=== PATIENT | male | born 1960 | race Caucasian/White ===

== ENCOUNTER 2016-09-09 18:49 | Emergency (ER) | payer OTHER ==
[2016-09-09 19:04] VITALS: RESP 20
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
--- NOTE | 2016-09-09 20:04 | XR ---
EXAMINATION TYPE: XR chest 3V DATE OF EXAM: 09/09/2016 COMPARISON: 11/15/2013 HISTORY: Pain TECHNIQUE: Frontal and lateral views of the chest are obtained. FINDINGS: There is no focal air space opacity, pleural effusion, or pneumothorax seen. The cardiac silhouette size is within normal limits. The osseous structures are intact. IMPRESSION: No acute cardiopulmonary process.
--- NOTE | 2016-09-09 20:06 | XR ---
EXAMINATION TYPE: XR shoulder complete RT DATE OF EXAM: 09/09/2016 CLINICAL HISTORY: Pain TECHNIQUE: Three views of the right shoulder are obtained. COMPARISON: None. FINDINGS: There is no acute fracture/dislocation evident in the right shoulder. The acromioclavicul ar and glenohumeral joint spaces appear within normal limits. The visualized ribs are intact and unr emarkable. IMPRESSION: There is no acute fracture or dislocation in the right shoulder.
[2016-09-09 20:43] VITALS: BP 102/55; PULSE 92; TEMP 98.7
== END 2016-09-09 20:40 | disposition home or self-care (01) ==
LOC: EC 18:49
DX: J98.01 Acute bronchospasm (principal); M25.511 Pain in right shoulder; F17.200 Nicotine dependence, unspecified, uncomplicated
CPT/HCPCS: 71020; 99284

== ENCOUNTER 2016-12-21 19:55 | Emergency (ER) | payer MEDICARE ==
[2016-12-21 20:57] LABS: Basophils # (A) 0.1 k/uL (0-0.2); Basophils % (A) 1 %; CH 32.4; CHCM 33.6; Eosinophils # (A) 0.2 k/uL (0-0.7); Eosinophils % (A) 3 %; HCT 47.6 % (39.0-53.0); HDW 2.32; HGB 15.8 gm/dL (13.0-17.5); Luc # (Auto) 0.17; Luc % (Auto) 3; Lymphocytes % (A) 33 %; MCH 32.3 pg (25.0-35.0); MCHC 33.3 g/dL (31.0-37.0); MCV 96.9 fL (80.0-100.0); Mean Platelet Volume 6.7; Monocytes # (A) 0.4 k/uL (0-1.0); Monocytes % (A) 7 %; Neutrophils # (A) 3.3 k/uL (1.3-7.7); Neutrophils % (A) 54 %; RBC 4.91 m/uL (4.30-5.90); RDW 14.8 % (11.5-15.5); WBC 6.1 k/uL (3.8-10.6)
--- NOTE | 2016-12-21 20:59 | ED ---
Alcohol HPI - General Chief Complaint: Alcohol Stated Complaint: ETOH Time Seen by Provider: 12/21/16 19:58 Source: patient, EMS, RN notes reviewed Mode of arrival: EMS Limitations: no limitations - History of Present Illness Initial Comments: 56-year-old male present emergency department via EMS for alcohol intoxication. Patient was found falling over. Patient states that he was at his home outside drinking. Patient states he does drink on a regular basis. Patient has no complaints. Patient does state he is a little cold. Patient states he did sleep outside pressure. Time. Denies abdominal pain, nausea, vomiting, diarrhea, chest pain, shortness breath, headache, dizziness. - Related Data Home Medications Medication Instructions Recorded Confirmed No Known Home Medications [No 12/21/16 12/21/16 Known Home Medications] Allergies Allergy/AdvReac Type Severity Reaction Status Date / Time No Known Allergies Allergy Verified 12/21/16 20:22 Review of Systems ROS Statement: Those systems with pertinent positive or pertinent negative responses have been documented in the HPI. ROS Other: All systems not noted in ROS Statement are negative. Past Medical History Past Medical History: No Reported History Additional Past Medical History / Comment(s): head injury History of Any Multi-Drug Resistant Organisms: None Reported Past Surgical History: Orthopedic Surgery Past Psychological History: No Psychological Hx Reported Smoking Status: Current every day smoker Past Alcohol Use History: Daily, Heavy Past Drug Use History: Marijuana General Exam General appearance: alert, in no apparent distress Head exam: Present: atraumatic, normocephalic, normal inspection Eye exam: Present: normal appearance, PERRL, EOMI. Absent: scleral icterus, conjunctival injection, periorbital swelling ENT exam: Present: normal exam, normal oropharynx, mucous membranes moist, TM's normal bilaterally Neck exam: Present: normal inspection, full ROM. Absent: tenderness, meningismus, lymphadenopathy Respiratory exam: Present: normal lung sounds bilaterally. Absent: respiratory distress, wheezes, rales, rhonchi, stridor Cardiovascular Exam: Present: regular rate, normal rhythm, normal heart sounds. Absent: systolic murmur, diastolic murmur, rubs, gallop, clicks GI/Abdominal exam: Present: soft, normal bowel sounds. Absent: distended, tenderness, guarding, rebound, rigid Neurological exam: Present: alert, oriented X3, CN II-XII intact, reflexes normal. Absent: motor sensory deficit Skin exam: Present: warm, dry, intact, normal color. Absent: rash Course Vital Signs 12/21/16 12/21/16 12/21/16 20:09 20:25 21:46 Temperature 94.5 F L 96.1 F L 97.0 F L Pulse Rate 82 85 Respiratory 16 18 Rate Blood Pressure 113/81 124/68 O2 Sat by Pulse 96 94 L Oximetry - Reevaluation(s) Reevaluation #1: 12/21/16 20:59 Patient refuses bear hugger patient's temperature rectally is 96.1 Medical Decision Making - Medical Decision Making 56-year-old male present emergency department for alcohol intoxication. Patient 's lab work was reviewed which essentially unremarkable. EKG reviewed no acute changes. Patient was slightly hypothermic at 96.1 rectally patient, as, patient is in no acute distress. Patient is clinically sober and will be discharged. - Lab Data Result diagrams: 12/21/16 20:48 12/21/16 20:48 Lab Results 12/21/16 12/21/16 12/21/16 Range/Units 20:48 20:48 20:48 WBC 6.1 (3.8-10.6) k/uL RBC 4.91 (4.30-5.90) m/uL Hgb 15.8 (13.0-17.5) gm/dL Hct 47.6 (39.0-53.0) % MCV 96.9 (80.0-100.0) fL MCH 32.3 (25.0-35.0) pg MCHC 33.3 (31.0-37.0) g/dL RDW 14.8 (11.5-15.5) % Plt Count 259 (150-450) k/uL Neutrophils % 54 % Lymphocytes % 33 % Monocytes % 7 % Eosinophils % 3 % Basophils % 1 % Neutrophils # 3.3 (1.3-7.7) k/uL Lymphocytes # 2.0 (1.0-4.8) k/uL Monocytes # 0.4 (0-1.0) k/uL Eosinophils # 0.2 (0-0.7) k/uL Basophils # 0.1 (0-0.2) k/uL Sodium 144 (137-145) mmol/L Potassium 4.1 (3.5-5.1) mmol/L Chloride 106 (98-107) mmol/L Carbon Dioxide 29 (22-30) mmol/L Anion Gap 9 mmol/L BUN 5 L (9-20) mg/dL Creatinine 0.59 L (0.66-1.25) mg/dL Est GFR (MDRD) Af Amer >60 (>60 ml/min/1.73 sqM) Est GFR (MDRD) Non-Af >60 (>60 ml/min/1.73 sqM) Glucose 89 (74-99) mg/dL Calcium 9.0 (8.4-10.2) mg/dL Magnesium 2.2 (1.6-2.3) mg/dL Total Bilirubin 0.2 (0.2-1.3) mg/dL AST 50 (17-59) U/L ALT 41 (21-72) U/L Alkaline Phosphatase 79 (38-126) U/L Total Creatine Kinase 562 H (55-170) U/L CK-MB (CK-2) 12.3 H* (0.0-2.4) ng/mL CK-MB (CK-2) Rel Index 2.2 Troponin I (0.000-0.034) ng/mL Total Protein 7.2 (6.3-8.2) g/dL Albumin 3.9 (3.5-5.0) g/dL Amylase 59 (30-110) U/L Lipase 68 (23-300) U/L Urine Color Urine Appearance (Clear) Urine pH (5.0-8.0) Ur Specific [place] (1.001-1.035) Urine Protein (Negative) Urine Glucose (UA) (Negative) Urine Ketones (Negative) Urine Blood (Negative) Urine Nitrite (Negative) Urine Bilirubin (Negative) Urine Urobilinogen (<2.0) mg/dL Ur Leukocyte Esterase (Negative) 12/21/16 12/21/16 Range/Units 20:48 21:28 WBC (3.8-10.6) k/uL RBC (4.30-5.90) m/uL Hgb (13.0-17.5) gm/dL Hct (39.0-53.0) % MCV (80.0-100.0) fL MCH (25.0-35.0) pg MCHC (31.0-37.0) g/dL RDW (11.5-15.5) % Plt Count (150-450) k/uL Neutrophils % % Lymphocytes % % Monocytes % % Eosinophils % % Basophils % % Neutrophils # (1.3-7.7) k/uL Lymphocytes # (1.0-4.8) k/uL Monocytes # (0-1.0) k/uL Eosinophils # (0-0.7) k/uL Basophils # (0-0.2) k/uL Sodium (137-145) mmol/L Potassium (3.5-5.1) mmol/L Chloride (98-107) mmol/L Carbon Dioxide (22-30) mmol/L Anion Gap mmol/L BUN (9-20) mg/dL Creatinine (0.66-1.25) mg/dL Est GFR (MDRD) Af Amer (>60 ml/min/1.73 sqM) Est GFR (MDRD) Non-Af (>60 ml/min/1.73 sqM) Glucose (74-99) mg/dL Calcium (8.4-10.2) mg/dL Magnesium (1.6-2.3) mg/dL Total Bilirubin (0.2-1.3) mg/dL AST (17-59) U/L ALT (21-72) U/L Alkaline Phosphatase (38-126) U/L Total Creatine Kinase (55-170) U/L CK-MB (CK-2) (0.0-2.4) ng/mL CK-MB (CK-2) Rel Index Troponin I <0.012 (0.000-0.034) ng/mL Total Protein (6.3-8.2) g/dL Albumin (3.5-5.0) g/dL Amylase (30-110) U/L Lipase (23-300) U/L Urine Color Colorless Urine Appearance Clear (Clear) Urine pH 7.0 (5.0-8.0) Ur Specific [place] 1.001 (1.001-1.035) Urine Protein Negative (Negative) Urine Glucose (UA) Negative (Negative) Urine Ketones Negative (Negative) Urine Blood Negative (Negative) Urine Nitrite Negative (Negative) Urine Bilirubin Negative (Negative) Urine Urobilinogen <2.0 (<2.0) mg/dL Ur Leukocyte Esterase Negative (Negative) 12/21/16 23:18 EKG performed at 21:35 normal sinus rhythm with rate of 67 NM interval 176 QRS 132 QT/QTC 442/437 Disposition Clinical Impression: Alcoholic intoxication Disposition: HOME SELF-CARE Condition: Stable Instructions: Alcohol Intoxication (ED) Additional Instructions: Please return to the Emergency Department if symptoms worsen or any other concerns. Referrals: None,Stated [Primary Care Provider] - 1-2 days Time of Disposition: 23:18
[2016-12-21 21:07] LABS: ALT 41 U/L (21-72); AST 50 U/L (17-59); Alkaline Phosphatase 79 U/L (38-126); Amylase 59 U/L (30-110); Anion Gap 9 mmol/L; Blood Urea Nitrogen 5 mg/dL (9-20); Carbon Dioxide 29 mmol/L (22-30); Chloride 106 mmol/L (98-107); Glucose 89 mg/dL (74-99); Magnesium 2.2 mg/dL (1.6-2.3); Non-African American GFR(MDRD) >60 (>60 ml/min/1.73 sqM); Potassium 4.1 mmol/L (3.5-5.1); Sodium 144 mmol/L (137-145); Total Bilirubin 0.2 mg/dL (0.2-1.3); Total Protein 7.2 g/dL (6.3-8.2)
[2016-12-21 21:35] LABS: Creatine Kinase MB 12.3 ng/mL (0.0-2.4)
[2016-12-21 21:37] LABS: Appearance,Urine Clear (Clear); Bilirubin,Urine Negative (Negative); Glucose,Urine (UA) Negative (Negative); Ketones,Urine Negative (Negative); Leukocyte Esterase,Urine Negative (Negative); Nitrite,Urine Negative (Negative); Protein,Urine Negative (Negative); Specific Gravity,Urine 1.001 (1.001-1.035); UA Billing (MACRO vs. MICRO) CHEM; Urobilinogen,Urine <2.0 mg/dL (<2.0)
[2016-12-21 21:47] VITALS: RESP 18
[2016-12-22 02:16] VITALS: BP 96/52; PULSE 102
[2016-12-22 02:27] VITALS: TEMP 98.1
== END 2016-12-22 02:25 | disposition home or self-care (01) ==
LOC: EC 19:55
DX: F10.129 Alcohol abuse with intoxication, unspecified (principal); T68.XXXA Hypothermia, initial encounter; F17.200 Nicotine dependence, unspecified, uncomplicated; X31.XXXA Exposure to excessive natural cold, initial encounter
CPT/HCPCS: 36415; 80053; 81003; 82075; 82150; 82550; 82553; 83690; 83735; 84484; 85025; 93005; 99284

== ENCOUNTER → 2017-02-14 | Outpatient (CLI) | payer MEDICARE ==
[2017-02-14 12:25] LABS: Anion Gap 10 mmol/L; Blood Urea Nitrogen 11 mg/dL (9-20); Calcium 9.9 mg/dL (8.4-10.2); Carbon Dioxide 27 mmol/L (22-30); Chloride 98 mmol/L (98-107); Glucose 90 mg/dL (74-99); Non-African American GFR(MDRD) >60 (>60 ml/min/1.73 sqM); Potassium 4.6 mmol/L (3.5-5.1); Sodium 135 mmol/L (137-145)
== END | disposition home or self-care (01) ==
LOC: LABWHC1 11:48
PROVIDERS: ATTEND Surgery
DX: I62.00 Nontraumatic subdural hemorrhage, unspecified (principal)
CPT/HCPCS: 36415; 80048

== ENCOUNTER 2017-10-05 19:11 | Emergency (ER) | payer MEDICARE ==
[2017-10-05 19:16] VITALS: BP 161/91; PULSE 80; RESP 18; TEMP 97
[2017-10-05] MEDS ORDERED: LIDOCAINE 1% INJ 10MG/ML (20 ML MDV) SQ ONE (19:52)
[2017-10-05] MEDS ORDERED: DIPH,PERTUS(ACELL)TETVAC-LF 0.5 ML VIAL IM ONE (19:53)
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
== END 2017-10-05 21:01 | disposition home or self-care (01) ==
LOC: EC 19:11
DX: S51.811A Laceration without foreign body of right forearm, initial encounter (principal); F17.200 Nicotine dependence, unspecified, uncomplicated; Z23 Encounter for immunization; W45.8XXA Other foreign body or object entering through skin, initial encounter; Y93.89 Activity, other specified; Y92.814 Boat as the place of occurrence of the external cause
CPT/HCPCS: 90715; 99282; 12002; 90471; J2001

== ENCOUNTER 2018-07-05 12:03 | Emergency (ER) | payer MEDICARE ==
[2018-07-05] MEDS ORDERED: HYDROcodone/APAP 7.5-325MG 1 EACH TAB PO ONE (12:17)
--- NOTE | 2018-07-05 12:24 | ED ---
Back Pain HPI - General Chief Complaint: Back Pain/Injury Stated Complaint: RT HIP AND LEG PAIN Time Seen by Provider: 07/05/18 12:11 Source: patient Limitations: no limitations - History of Present Illness Initial Comments: 57-year-old male presenting today for chief complaint of pain sharp shooting down the right leg. Patient states that he has on-and-off sciatica, he states this has been persistent for the past 3 weeks he states there are some days with alleviation however they are few and far between. Pt states the pain increases with ambulation. Patient has a muscle weakness loss sensation loss of bowel bladder control in urinary retention he denies IV drug use he denies any recent falls or trauma to the back, he denies history of cancer. Pt denies fever or chills or night sweats. Patient denies any recent weight loss. Pt does admit to chronic alcohol use. Upon arrival pt appears well, ambulatory. No signs of acute distress. Afebrile. - Related Data Home Medications Medication Instructions Recorded Confirmed No Known Home Medications 10/05/17 07/05/18 Allergies Allergy/AdvReac Type Severity Reaction Status Date / Time No Known Allergies Allergy Verified 07/05/18 12:29 Review of Systems ROS Statement: Those systems with pertinent positive or pertinent negative responses have been documented in the HPI. ROS Other: All systems not noted in ROS Statement are negative. Past Medical History Past Medical History: No Reported History Additional Past Medical History / Comment(s): head injury History of Any Multi-Drug Resistant Organisms: None Reported Past Surgical History: Orthopedic Surgery Past Psychological History: No Psychological Hx Reported Smoking Status: Current every day smoker Past Alcohol Use History: Daily, Heavy Past Drug Use History: Marijuana General Exam - General Exam Comments Initial Comments: General: The patient is awake and alert, in no distress, and does not appear acutely ill. Eye: +3 mm pupils are equal, round and reactive to light, extra-ocular movements are intact. No nystagmus. There is normal conjunctiva bilaterally. No signs of icterus. Ears, nose, mouth and throat: There are moist mucous membranes and no oral lesions. Neck: The neck is supple, there is no tenderness or JVD. Cardiovascular: There is a regular rate and rhythm. No murmur, rub or gallop is appreciated. Respiratory: Lungs are clear to auscultation, respirations are non-labored, br eath sounds are equal. No wheezes, stridor, rales, or rhonchi. Gastrointestinal: Soft, non-distended, non-tender abdomen without masses or organomegaly noted. There is no rebound or guarding present. No pulsatile masses. Musculoskeletal: No midline tenderness to patient of the lumbar spine, minimal paravertebral tenderness of the lumbar spine. No tenderness midline or paravertebral thoracic and cervical spine. Patient is able to heel and toe walk. Patient has full strength of the lower extremities at the hips knees and ankles equal comparison bilaterally with full sensation including in the saddle region. No mild clonus or fasciculations noted. DP pulses equal bilaterally 2+. Neurological: A&O x 3. CN II-XII intact, There are no obvious motor or sensory deficits. Coordination appears grossly intact. Speech is normal. Skin: Skin is warm and dry and no rashes or lesions are noted. Psychiatric: Cooperative, appropriate mood & affect, normal judgment. Limitations: no limitations Course Vital Signs 07/05/18 07/05/18 12:08 13:41 Temperature 98.1 F 99 F Pulse Rate 76 71 Respiratory 16 18 Rate Blood Pressure 133/94 118/83 O2 Sat by Pulse 98 99 Oximetry Medical Decision Making - Medical Decision Making Well-appearing 57-year-old male presenting for back pain that radiates down the right leg. Patient has this issue chronically states that occasionally it is exacerbated. Patient states this has been going on 2-3 weeks. Patient denies fall. Patient denies IV drug use fever or chills night sweats he denies history of cancer. Upon arrival patient appears well signs of acute distress. Examination unremarkable. No signs of neurovascular deficits. Imaging studies were obtained revealing no acute osseous injury. Normal alignment. At this time the patient is stable for discharge she was treated symptomatically in the emergency department he is to follow-up with his primary care provider if symptoms persist to follow-up with orthopedic surgery. Patient is agreeable care plan as well as discharge today. Patient is discharged. Will after discussed the case attending provider Dr. Velasquez. Disposition Clinical Impression: Back pain, Radiculopathy, Acute exacerbation of chronic low back pain Disposition: HOME SELF-CARE Condition: Good Instructions (If sedation given, give patient instructions): Acute Low Back Pain (ED) Additional Instructions: Please use medication as discussed. Please follow-up with family doctor in the next 2 days. Please return to emergency room if the symptoms increase or worsen or for any other concerns or if you are unable to urinate, lose bowel or bladder control loss of sensation of the legs or difficulty with muscle strength of the legs. Is patient prescribed a controlled substance at d/c from ED?: No Referrals: None,Stated [Primary Care Provider] - 1-2 days [facility] [NON-STAFF] - 1-2 days Time of Disposition: 13:13
--- NOTE | 2018-07-05 13:06 | XR ---
EXAMINATION TYPE: XR lumbar spine 2 or 3V DATE OF EXAM: 07/05/2018 CLINICAL HISTORY: pain TECHNIQUE: Three views of the lumbar spine are submitted. COMPARISON: 11/15/2013 FINDINGS: There are 5 lumbar type vertebral bodies identified. The lumbar spine shows satisfactory alignment w ithout evidence of acute fracture or dislocation. Vertebral body heights are within normal limits. Moderate to severe degenerative disc space narrowing and spondylosis. Facet joint arthropathy. The o verlying soft tissue appears unremarkable. IMPRESSION: No acute fracture or dislocation is seen in the lumbar spine. ICD 10 NO FRACTURE, INITIAL EVALUATION
[2018-07-05] MEDS ORDERED: ACET/COD 300 MG/30 MG STARTER PACK 6 TAB BTL PO STA (13:14)
[2018-07-05 13:42] VITALS: BP 118/83; PULSE 71; RESP 18; TEMP 99
== END 2018-07-05 13:41 | disposition home or self-care (01) ==
LOC: EC 12:03
DX: M54.16 Radiculopathy, lumbar region (principal); M54.5 Low back pain; G89.29 Other chronic pain; F17.200 Nicotine dependence, unspecified, uncomplicated
CPT/HCPCS: 72100; 99283

== ENCOUNTER → 2018-11-24 | Outpatient (CLI) | payer MEDICARE ==
--- NOTE | 2018-11-24 18:08 | MR ---
EXAMINATION TYPE: MR cervical spine wo con DATE OF EXAM: 11/24/2018 COMPARISON: None HISTORY: Urinary incontinence / muscle spasm TECHNIQUE: Multiplanar, multisequence images of the cervical spine were acquired. Cervical vertebra show fairly normal alignment. There is narrowing of C5-6 C6 C6-7 disc spaces with s purring. There is 6 mm spinal stenosis at C3-4 due to posterior central disc herniation. This extends slightly to the right side. There is mild 6.6 mm spinal stenosis at C6-7 due to mild posterior disc herniation. There is 5 mm focus of increased signal within the cervical spinal cord at C5 level and a lso C6 level. The brainstem is intact. There is no compression fracture. There is anterior bridging o steophyte formation at C4-5 C5-6 and C6-7. IMPRESSION: Multilevel spondylotic changes. Mild multilevel cervical spinal stenosis. Posterior disc herniations at C3-4 and C4-5 and C6-7. No fracture. Focal abnormal signal in the cord as above consistent with myelomalacia. Cord abnormal signal is not at the location of the spinal stenosis and could relate to demyelinating disease.
== END ==
LOC: RADMRIMAIN 12:28
PROVIDERS: ATTEND Neurological Surgery
DX: M48.02 Spinal stenosis, cervical region (principal); M50.21 Other cervical disc displacement, high cervical region; M47.812 Spondylosis without myelopathy or radiculopathy, cervical region; R93.7 Abnormal findings on diagnostic imaging of other parts of musculoskeletal system
CPT/HCPCS: 72141

== ENCOUNTER 2018-12-31 13:36 | Emergency (ER) | payer MEDICARE ==
[2018-12-31 13:42] VITALS: RESP 18; TEMP 97.2
--- NOTE | 2018-12-31 13:49 | ED ---
General Adult HPI - General Chief complaint: Syncope Stated complaint: SYNCOPE Time Seen by Provider: 12/31/18 13:44 Source: patient, EMS Mode of arrival: EMS Limitations: no limitations - History of Present Illness Initial comments: Patient presents to the ED by ambulance for evaluation. Patient states that he became - Related Data Home Medications Medication Instructions Recorded Confirmed Hydrocodone/Acetaminophen [[place] 1 tab PO BID PRN 12/31/18 12/31/18 7.5-325] Naproxen [Naprosyn] 500 mg PO BID PRN 12/31/18 12/31/18 Allergies Allergy/AdvReac Type Severity Reaction Status Date / Time No Known Allergies Allergy Verified 12/31/18 15:01 Review of Systems ROS Statement: Those systems with pertinent positive or pertinent negative responses have been documented in the HPI. ROS Other: All systems not noted in ROS Statement are negative. Past Medical History Past Medical History: No Reported History Additional Past Medical History / Comment(s): head injury History of Any Multi-Drug Resistant Organisms: None Reported Past Surgical History: Orthopedic Surgery Past Psychological History: No Psychological Hx Reported Smoking Status: Current every day smoker Past Alcohol Use History: Daily, Heavy Past Drug Use History: Marijuana General Exam Limitations: no limitations Course Vital Signs 12/31/18 13:36 Temperature 97.2 F L Pulse Rate 61 Respiratory 18 Rate Blood Pressure 100/61 O2 Sat by Pulse 96 Oximetry EKG Findings - EKG Comments: EKG Findings:: Sinus bradycardia with borderline first-degree AV block, ventricular rate of 56 bpm, right bundle branch block (seen on 02/08/17 EKG as well), normal QT interval, no ST or T-wave abnormality Medical Decision Making - Medical Decision Making Patient's labs and chest x-ray are fairly unremarkable. Patient's vital signs are reassuring. Patient continues to deny having any dizziness or symptoms whil e in the ED. I do not suspect a serious etiology for the patient's syncope, and I suspect that it was likely vasovagal in etiology. Patient is aware of his test results, and he feels comfortable going home at this time. Patient was counseled about syncope. Patient was clearly explained return and follow-up instructions. Patient was instructed to follow up closely with his PCP. - Lab Data Result diagrams: 12/31/18 13:42 12/31/18 13:42 Lab Results 11/05/1612/31/18 12/31/18 Range/Units 13:42 13:42 13:42 WBC 8.8 (3.8-10.6) k/uL RBC 4.66 (4.30-5.90) m/uL Hgb 15.5 (13.0-17.5) gm/dL Hct 44.6 (39.0-53.0) % MCV 95.7 (80.0-100.0) fL MCH 33.2 (25.0-35.0) pg MCHC 34.7 (31.0-37.0) g/dL RDW 13.1 (11.5-15.5) % Plt Count 279 (150-450) k/uL Neutrophils % 67 % Lymphocytes % 23 % Monocytes % 5 % Eosinophils % 2 % Basophils % 1 % Neutrophils # 5.9 (1.3-7.7) k/uL Lymphocytes # 2.0 (1.0-4.8) k/uL Monocytes # 0.4 (0-1.0) k/uL Eosinophils # 0.2 (0-0.7) k/uL Basophils # 0.1 (0-0.2) k/uL PT 10.6 (9.0-12.0) sec INR 1.0 (<1.2) APTT 22.5 (22.0-30.0) sec Sodium 133 L (137-145) mmol/L Potassium 4.0 (3.5-5.1) mmol/L Chloride 100 (98-107) mmol/L Carbon Dioxide 22 (22-30) mmol/L Anion Gap 11 mmol/L BUN 13 (9-20) mg/dL Creatinine 0.68 (0.66-1.25) mg/dL Est GFR (CKD-EPI)AfAm >90 (>60 ml/min/1.73 sqM) Est GFR (CKD-EPI)NonAf >90 (>60 ml/min/1.73 sqM) Glucose 84 (74-99) mg/dL Calcium 9.4 (8.4-10.2) mg/dL Magnesium 2.0 (1.6-2.3) mg/dL Total Bilirubin 0.6 (0.2-1.3) mg/dL AST 36 (17-59) U/L ALT 25 (21-72) U/L Alkaline Phosphatase 76 (38-126) U/L Troponin I (0.000-0.034) ng/mL Total Protein 7.3 (6.3-8.2) g/dL Albumin 4.3 (3.5-5.0) g/dL Serum Alcohol 55 mg/dL 12/31/18 Range/Units 13:42 WBC (3.8-10.6) k/uL RBC (4.30-5.90) m/uL Hgb (13.0-17.5) gm/dL Hct (39.0-53.0) % MCV (80.0-100.0) fL MCH (25.0-35.0) pg MCHC (31.0-37.0) g/dL RDW (11.5-15.5) % Plt Count (150-450) k/uL Neutrophils % % Lymphocytes % % Monocytes % % Eosinophils % % Basophils % % Neutrophils # (1.3-7.7) k/uL Lymphocytes # (1.0-4.8) k/uL Monocytes # (0-1.0) k/uL Eosinophils # (0-0.7) k/uL Basophils # (0-0.2) k/uL PT (9.0-12.0) sec INR (<1.2) APTT (22.0-30.0) sec Sodium (137-145) mmol/L Potassium (3.5-5.1) mmol/L Chloride (98-107) mmol/L Carbon Dioxide (22-30) mmol/L Anion Gap mmol/L BUN (9-20) mg/dL Creatinine (0.66-1.25) mg/dL Est GFR (CKD-EPI)AfAm (>60 ml/min/1.73 sqM) Est GFR (CKD-EPI)NonAf (>60 ml/min/1.73 sqM) Glucose (74-99) mg/dL Calcium (8.4-10.2) mg/dL Magnesium (1.6-2.3) mg/dL Total Bilirubin (0.2-1.3) mg/dL AST (17-59) U/L ALT (21-72) U/L Alkaline Phosphatase (38-126) U/L Troponin I 0.022 (0.000-0.034) ng/mL Total Protein (6.3-8.2) g/dL Albumin (3.5-5.0) g/dL Serum Alcohol mg/dL - Radiology Data Radiology results: image reviewed (Chest x-ray is negative) Disposition Clinical Impression: Syncope Disposition: HOME SELF-CARE Condition: Stable Instructions (If sedation given, give patient instructions): Syncope (ED) Additional Instructions: Return to the ER immediately if you develop any significant pain, a fever, shortness of breath, feeling dizzy, fainting, or new or worsening symptoms. Follow up closely with your primary care provider. Is patient prescribed a controlled substance at d/c from ED?: No Referrals: Chava Lentz MD [Primary Care Provider] - 1-2 days Time of Disposition: 15:39
[2018-12-31] MEDS ORDERED: SODIUM CHLORIDE 0.9% 1,000 ML IV STA (13:51)
[2018-12-31 14:04] LABS: Basophils # (A) 0.1 k/uL (0-0.2); Basophils % (A) 1 %; Eosinophils # (A) 0.2 k/uL (0-0.7); Eosinophils % (A) 2 %; HCT 44.6 % (39.0-53.0); HGB 15.5 gm/dL (13.0-17.5); Lymphocytes % (A) 23 %; MCH 33.2 pg (25.0-35.0); MCHC 34.7 g/dL (31.0-37.0); MCV 95.7 fL (80.0-100.0); Mean Platelet Volume 5.8; Monocytes # (A) 0.4 k/uL (0-1.0); Monocytes % (A) 5 %; Neutrophils # (A) 5.9 k/uL (1.3-7.7); Neutrophils % (A) 67 %; Platelet Count 279 k/uL (150-450); RBC 4.66 m/uL (4.30-5.90); RDW 13.1 % (11.5-15.5); WBC 8.8 k/uL (3.8-10.6)
[2018-12-31 14:13] LABS: ALT 25 U/L (21-72); AST 36 U/L (17-59); African American GFR (CKD) >90 (>60 ml/min/1.73 sqM); Albumin 4.3 g/dL (3.5-5.0); Alcohol 55 mg/dL; Alkaline Phosphatase 76 U/L (38-126); Anion Gap 11 mmol/L; Blood Urea Nitrogen 13 mg/dL (9-20); Calcium 9.4 mg/dL (8.4-10.2); Carbon Dioxide 22 mmol/L (22-30); Chloride 100 mmol/L (98-107); Glucose 84 mg/dL (74-99); Partial Thromboplastin Time 22.5 sec (22.0-30.0); Prothrombin Time 10.6 sec (9.0-12.0); Sodium 133 mmol/L (137-145); Total Bilirubin 0.6 mg/dL (0.2-1.3); Total Protein 7.3 g/dL (6.3-8.2)
--- NOTE | 2018-12-31 14:46 | XR ---
EXAMINATION TYPE: XR chest 2V DATE OF EXAM: 12/31/2018 COMPARISON: 02/08/2017 HISTORY: Syncope TECHNIQUE: Frontal and lateral views of the chest are obtained. FINDINGS: Heart is normal. Lungs are clear of infiltrate. There are chest leads. There is old healed fracture left clavicle. Costophrenic angles are clear. Thoracic spine is intact. IMPRESSION: No cardiopulmonary disease. Normal heart. No change.
[2018-12-31 16:19] VITALS: BP 121/77; PULSE 73
== END 2018-12-31 16:18 | disposition home or self-care (01) ==
LOC: EC 13:36
DX: R55 Syncope and collapse (principal); F17.200 Nicotine dependence, unspecified, uncomplicated
CPT/HCPCS: 36415; 93005; 80053; 83735; 84484; 85025; 85610; 85730; 71046; 99285; 96360; G0480; 80320

== ENCOUNTER 2019-01-14 14:59 | Emergency (ER) | payer MEDICARE ==
[2019-01-14 15:07] VITALS: RESP 16; TEMP 98.4
[2019-01-14] MEDS ORDERED: SODIUM CHLORIDE 0.9% 1,000 ML IV STA ×2 (15:27)
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
[2019-01-14 15:51] LABS: Basophils # (A) 0.1 k/uL (0-0.2); Basophils % (A) 1 %; Eosinophils # (A) 0.1 k/uL (0-0.7); Eosinophils % (A) 1 %; HCT 43.7 % (39.0-53.0); Lymphocytes # (A) 1.4 k/uL (1.0-4.8); Lymphocytes % (A) 10 %; MCH 32.1 pg (25.0-35.0); MCHC 34.3 g/dL (31.0-37.0); MCV 93.7 fL (80.0-100.0); Mean Platelet Volume 6.3; Monocytes # (A) 1.2 k/uL (0-1.0); Monocytes % (A) 9 %; Neutrophils # (A) 11.7 k/uL (1.3-7.7); Neutrophils % (A) 80 %; Platelet Count 372 k/uL (150-450); RBC 4.66 m/uL (4.30-5.90); RDW 12.5 % (11.5-15.5); WBC 14.7 k/uL (3.8-10.6)
[2019-01-14 16:01] LABS: ALT 32 U/L (21-72); AST 25 U/L (17-59); African American GFR (CKD) >90 (>60 ml/min/1.73 sqM); Albumin 4.2 g/dL (3.5-5.0); Alkaline Phosphatase 75 U/L (38-126); Amylase 50 U/L (30-110); Anion Gap 12 mmol/L; Blood Urea Nitrogen 16 mg/dL (9-20); Calcium 9.9 mg/dL (8.4-10.2); Carbon Dioxide 22 mmol/L (22-30); Chloride 99 mmol/L (98-107); Glucose 134 mg/dL (74-99); Magnesium 2.1 mg/dL (1.6-2.3); Potassium 3.2 mmol/L (3.5-5.1); Sodium 133 mmol/L (137-145); Total Bilirubin 0.9 mg/dL (0.2-1.3); Total Protein 7.6 g/dL (6.3-8.2)
--- NOTE | 2019-01-14 16:04 | XR ---
EXAMINATION TYPE: XR shoulder complete RT DATE OF EXAM: 01/14/2019 COMPARISON: 09/09/2016 HISTORY: Shoulder pain TECHNIQUE: 3 views FINDINGS: I see no fracture nor dislocation. Joint spaces are fairly normal. There is minor spurring of the inferior glenoid labrum. IMPRESSION: Minimal spurring. No fracture seen. No change.
--- NOTE | 2019-01-14 16:05 | XR ---
EXAMINATION TYPE: XR chest 2V DATE OF EXAM: 01/14/2019 COMPARISON: 12/31/2018 HISTORY: Chest pain. Right shoulder pain. TECHNIQUE: Frontal and lateral views of the chest are obtained. FINDINGS: There is no heart failure nor confluent pneumonic infiltrate. Costophrenic angles are sade r. Heart size is normal. There is old left clavicle fracture with a plate. The bony thorax is intact. IMPRESSION: No active cardiopulmonary disease. No change.
[2019-01-14 16:08] LABS: Partial Thromboplastin Time 28.2 sec (22.0-30.0); Prothrombin Time 10.7 sec (9.0-12.0)
[2019-01-14 17:38] VITALS: BP 129/88; PULSE 89
== END 2019-01-14 17:38 | disposition home or self-care (01) ==
LOC: EC 14:59
DX: M25.511 Pain in right shoulder (principal); M25.512 Pain in left shoulder; M54.9 Dorsalgia, unspecified; F17.200 Nicotine dependence, unspecified, uncomplicated; Z98.890 Other specified postprocedural states
CPT/HCPCS: 36415; 71046; 80053; 82150; 83690; 83735; 83880; 84484; 85025; 85610; 85730; 87040; 87077; 87186; 93005; 96360; 99284

== ENCOUNTER 2019-01-15 13:50 | Emergency (ER) | payer MEDICARE ==
[2019-01-15 14:02] VITALS: TEMP 97.2
[2019-01-15 14:35] LABS: Glucose,Whole Blood 106 mg/dL (75-99)
--- NOTE | 2019-01-15 14:58 | ED ---
General Adult HPI - General Chief complaint: Recheck/Abnormal Lab/Rx Stated complaint: Abnormal Labs Time Seen by Provider: 01/15/19 14:30 Source: patient, RN notes reviewed, Caregiver Mode of arrival: ambulatory Limitations: no limitations - History of Present Illness Initial comments: Patient is a pleasant 58-year-old male presenting to the emergency Department with complaints of abnormal blood work. Patient did have spinal fusion done in [place] with Dr. ritter on January 03. Patient has occasional chronic shoulder discomfort. Patient did have some discomfort yesterday was brought to the emergency department. Patient still complains of some shoulder discomfort however states this is no worse than chronic for him. Patient had blood culture done with pulmonary results showing gram-positive cocci. Patient was told by Dr. ritter following surgery that there was concern for a spinal leak. He did advise him to come back to the emergency department for reevaluation. Patient complains of discomfort of the neck, more anteriorly than posteriorly. No fevers. Patient is having yellow drainage from the anterior neck. Patient did have some additional sutures placed by Dr. hernandez a few days ago. - Related Data Home Medications Medication Instructions Recorded Confirmed Hydrocodone/Acetaminophen [[place] 1 tab PO BID PRN 12/31/18 12/31/18 7.5-325] Naproxen [Naprosyn] 500 mg PO BID PRN 12/31/18 12/31/18 Previous Rx's Medication Instructions Recorded Ciprofloxacin HCl [Cipro] 500 mg PO BID 7 Days #14 tab 01/15/19 Allergies Allergy/AdvReac Type Severity Reaction Status Date / Time No Known Allergies Allergy Verified 01/14/19 15:07 Review of Systems ROS Statement: Those systems with pertinent positive or pertinent negative responses have been documented in the HPI. ROS Other: All systems not noted in ROS Statement are negative. Constitutional: Denies: fever Eyes: Denies: eye pain ENT: Denies: ear pain Respiratory: Denies: dyspnea Cardiovascular: Denies: chest pain Endocrine: Reports: fatigue Gastrointestinal: Denies: abdominal pain Genitourinary: Denies: dysuria Musculoskeletal: Denies: back pain Skin: Reports: rash Neurological: Denies: weakness Past Medical History Past Medical History: No Reported History Additional Past Medical History / Comment(s): head injury History of Any Multi-Drug Resistant Organisms: None Reported Past Surgical History: Orthopedic Surgery Additional Past Surgical History / Comment(s): cervical spinal fusion Past Psychological History: No Psychological Hx Reported Smoking Status: Former smoker Past Alcohol Use History: None Reported Past Drug Use History: None Reported General Exam Limitations: no limitations General appearance: alert, in no apparent distress Head exam: Present: atraumatic, normocephalic Eye exam: Present: normal appearance, PERRL ENT exam: Present: normal oropharynx Neck exam: Present: other (Anterior neck with erythema. There is mild thin yellow drainage from the anterior neck wound. Minimal tenderness to palpation. No posterior tenderness.). Absent: meningismus Respiratory exam: Present: normal lung sounds bilaterally Cardiovascular Exam: Present: regular rate, normal rhythm GI/Abdominal exam: Present: soft. Absent: tenderness Extremities exam: Present: normal inspection Neurological exam: Present: alert. Absent: motor sensory deficit Psychiatric exam: Present: normal affect, normal mood Skin exam: Present: erythema (Anterior neck near the incision) Course Vital Signs 01/15/19 01/15/19 13:52 15:28 Temperature 97.2 F L Pulse Rate 86 72 Respiratory 18 18 Rate Blood Pressure 88/63 98/63 O2 Sat by Pulse 97 98 Oximetry EKG Findings - EKG Comments: EKG Findings:: Normal sinus rhythm 73. OK 160. QRS 1:30. QTC 416. QTC 458. Normal axis. Nonspecific intraventricular block. Q wave in lead V1 and V2. No acute ST change. Medical Decision Making - Medical Decision Making Patient reevaluated and resting comfortably in bed. Patient has symptoms concerning for possible early wound infection. There is no evidence of menin gitis on assessment at this point. Case was discussed in detail twice with Dr. ritter who is very familiar with this patient. He does recommend discharge with Cipro for 7 days and will follow-up tomorrow with patient. He will call. Patient's morphologist body tonight. Patient and morphologist are updated. - Lab Data Result diagrams: 01/15/19 14:39 01/15/19 14:39 Lab Results 01/15/19 01/15/19 01/15/19 Range/Units 14:32 14:39 14:39 WBC 12.4 H (3.8-10.6) k/uL RBC 4.28 L (4.30-5.90) m/uL Hgb 13.8 (13.0-17.5) gm/dL Hct 39.9 (39.0-53.0) % MCV 93.4 (80.0-100.0) fL MCH 32.4 (25.0-35.0) pg MCHC 34.7 (31.0-37.0) g/dL RDW 12.7 (11.5-15.5) % Plt Count 421 (150-450) k/uL Neutrophils % 73 % Lymphocytes % 15 % Monocytes % 9 % Eosinophils % 1 % Basophils % 1 % Neutrophils # 9.1 H (1.3-7.7) k/uL Lymphocytes # 1.9 (1.0-4.8) k/uL Monocytes # 1.2 H (0-1.0) k/uL Eosinophils # 0.1 (0-0.7) k/uL Basophils # 0.1 (0-0.2) k/uL PT (9.0-12.0) sec INR (<1.2) APTT (22.0-30.0) sec Sodium 135 L (137-145) mmol/L Potassium 3.5 (3.5-5.1) mmol/L Chloride 102 (98-107) mmol/L Carbon Dioxide 24 (22-30) mmol/L Anion Gap 9 mmol/L BUN 16 (9-20) mg/dL Creatinine 0.72 (0.66-1.25) mg/dL Est GFR (CKD-EPI)AfAm >90 (>60 ml/min/1.73 sqM) Est GFR (CKD-EPI)NonAf >90 (>60 ml/min/1.73 sqM) Glucose 108 H (74-99) mg/dL POC Glucose (mg/dL) 106 H (75-99) mg/dL POC Glu Beaver Trapper Maxine Ba Plasma Lactic Acid Huey (0.7-2.0) mmol/L Calcium 9.4 (8.4-10.2) mg/dL Total Bilirubin 0.6 (0.2-1.3) mg/dL AST 43 (17-59) U/L ALT 32 (21-72) U/L Alkaline Phosphatase 85 (38-126) U/L Total Protein 7.4 (6.3-8.2) g/dL Albumin 4.0 (3.5-5.0) g/dL 01/15/19 01/15/19 Range/Units 14:39 14:39 WBC (3.8-10.6) k/uL RBC (4.30-5.90) m/uL Hgb (13.0-17.5) gm/dL Hct (39.0-53.0) % MCV (80.0-100.0) fL MCH (25.0-35.0) pg MCHC (31.0-37.0) g/dL RDW (11.5-15.5) % Plt Count (150-450) k/uL Neutrophils % % Lymphocytes % % Monocytes % % Eosinophils % % Basophils % % Neutrophils # (1.3-7.7) k/uL Lymphocytes # (1.0-4.8) k/uL Monocytes # (0-1.0) k/uL Eosinophils # (0-0.7) k/uL Basophils # (0-0.2) k/uL PT 10.2 (9.0-12.0) sec INR 0.9 (<1.2) APTT 26.3 (22.0-30.0) sec Sodium (137-145) mmol/L Potassium (3.5-5.1) mmol/L Chloride (98-107) mmol/L Carbon Dioxide (22-30) mmol/L Anion Gap mmol/L BUN (9-20) mg/dL Creatinine (0.66-1.25) mg/dL Est GFR (CKD-EPI)AfAm (>60 ml/min/1.73 sqM) Est GFR (CKD-EPI)NonAf (>60 ml/min/1.73 sqM) Glucose (74-99) mg/dL POC Glucose (mg/dL) (75-99) mg/dL POC Glu Beaver Trapper ID Plasma Lactic Acid Huey 1.6 (0.7-2.0) mmol/L Calcium (8.4-10.2) mg/dL Total Bilirubin (0.2-1.3) mg/dL AST (17-59) U/L ALT (21-72) U/L Alkaline Phosphatase (38-126) U/L Total Protein (6.3-8.2) g/dL Albumin (3.5-5.0) g/dL - Radiology Data Radiology results: image reviewed (Chest x-ray reveals no acute process) Disposition Clinical Impression: Incisional infection Disposition: HOME SELF-CARE Condition: Stable Instructions (If sedation given, give patient instructions): Cellulitis (ED) Additional Instructions: Please follow-up with Dr. Ritter tomorrow. He will call you tonight or tomorrow. If you do not hear from them by late morning please call. Return for fevers, increased redness, increased pain, increased drainage, worsening symptoms or any other concerns. Please also follow-up with primary care physician. Please have both of them evaluate culture results. Prescription sent to [facility] on . Prescriptions: Ciprofloxacin HCl [Cipro] 500 mg PO BID 7 Days #14 tab Is patient prescribed a controlled substance at d/c from ED?: No Referrals: Chava Lentz MD [Primary Care Provider] - 1-2 days Time of Disposition: 17:03
[2019-01-15] MEDS ORDERED: SODIUM CHLORIDE 0.9% 1,000 ML IV SCH (15:00)
[2019-01-15 15:48] LABS: ALT 32 U/L (21-72); AST 43 U/L (17-59); African American GFR (CKD) >90 (>60 ml/min/1.73 sqM); Alkaline Phosphatase 85 U/L (38-126); Anion Gap 9 mmol/L; Blood Urea Nitrogen 16 mg/dL (9-20); Calcium 9.4 mg/dL (8.4-10.2); Carbon Dioxide 24 mmol/L (22-30); Chloride 102 mmol/L (98-107); Glucose 108 mg/dL (74-99); Non-African American GFR(CKD) >90 (>60 ml/min/1.73 sqM); Potassium 3.5 mmol/L (3.5-5.1); Sodium 135 mmol/L (137-145); Total Bilirubin 0.6 mg/dL (0.2-1.3); Total Protein 7.4 g/dL (6.3-8.2)
--- NOTE | 2019-01-15 15:50 | XR ---
EXAMINATION TYPE: XR chest 2V DATE OF EXAM: 01/15/2019 COMPARISON: Prior chest x-ray 01/14/2019, CT 2013 HISTORY: Fever and right shoulder pain TECHNIQUE: Frontal and lateral views of the chest are obtained on 3 images. FINDINGS: Postop changes are noted to the cervical spine, messi are present as well as anterior ce rvical fusion and discectomy change. Postop changes noted to the left clavicle as on prior. There are overlying cardiac leads. Prominent lung volumes are noted. Cardiac mediastinal silhouette, pulmonary vascularity and juan daniel are unchanged. No evident airspace disease, pneumothorax, or pleural effusion. There is apical bullous change at the right apex greater than left. IMPRESSION: No acute cardiopulmonary process.
[2019-01-15 15:59] LABS: INR 0.9 (<1.2); Partial Thromboplastin Time 26.3 sec (22.0-30.0); Prothrombin Time 10.2 sec (9.0-12.0)
[2019-01-15 16:12] LABS: Basophils # (A) 0.1 k/uL (0-0.2); Basophils % (A) 1 %; Eosinophils # (A) 0.1 k/uL (0-0.7); Eosinophils % (A) 1 %; HCT 39.9 % (39.0-53.0); HGB 13.8 gm/dL (13.0-17.5); Lymphocytes # (A) 1.9 k/uL (1.0-4.8); Lymphocytes % (A) 15 %; MCH 32.4 pg (25.0-35.0); MCHC 34.7 g/dL (31.0-37.0); MCV 93.4 fL (80.0-100.0); Mean Platelet Volume 6.8; Monocytes # (A) 1.2 k/uL (0-1.0); Monocytes % (A) 9 %; Neutrophils # (A) 9.1 k/uL (1.3-7.7); Neutrophils % (A) 73 %; Platelet Count 421 k/uL (150-450); RBC 4.28 m/uL (4.30-5.90); RDW 12.7 % (11.5-15.5); WBC 12.4 k/uL (3.8-10.6)
[2019-01-15] MEDS ORDERED: LEVOFLOXACIN 750 MG TAB PO STA (16:48)
[2019-01-15 17:39] VITALS: BP 104/71; PULSE 73; RESP 16
== END 2019-01-15 17:41 | disposition home or self-care (01) ==
LOC: EC 13:50
DX: T81.49XA Infection following a procedure, other surgical site, initial encounter (principal); G04.91 Myelitis, unspecified; Z98.1 Arthrodesis status; Z87.891 Personal history of nicotine dependence
CPT/HCPCS: 36415; 71046; 80053; 83605; 85025; 85610; 85730; 87040; 87070; 87077; 87186; 87205; 93005; 96360; 96361; 99284

== ENCOUNTER → 2019-03-08 | Outpatient (CLI) | payer MEDICARE ==
--- NOTE | 2019-03-08 10:10 | P.PN ---
Progress Note - Text Progress Note Date: 03/08/19 5 meter walk test completed: #1 5.10 sec #2 4.66 sec #3 5.04 sec Once all preoperative testing has been completed, STS risk score will be calculated and discussed with the patient
[2019-03-08 11:00] LABS: Appearance,Urine Clear (Clear); Bilirubin,Urine Negative (Negative); Blood,Urine Negative (Negative); Color,Urine Yellow; Glucose,Urine (UA) Negative (Negative); Ketones,Urine Negative (Negative); Leukocyte Esterase,Urine Negative (Negative); Nitrite,Urine Negative (Negative); Protein,Urine Trace (Negative); Specific Gravity,Urine 1.019 (1.001-1.035)
[2019-03-08 11:09] LABS: HCT 41.3 % (39.0-53.0); HGB 13.5 gm/dL (13.0-17.5); MCH 30.5 pg (25.0-35.0); MCHC 32.7 g/dL (31.0-37.0); MCV 93.3 fL (80.0-100.0); Mean Platelet Volume 6.8; Platelet Count 339 k/uL (150-450); RBC 4.43 m/uL (4.30-5.90); RDW 13.1 % (11.5-15.5); WBC 8.4 k/uL (3.8-10.6)
[2019-03-08 11:21] LABS: INR 0.9 (<1.2); Partial Thromboplastin Time 26.3 sec (22.0-30.0); Prothrombin Time 10.2 sec (9.0-12.0)
[2019-03-08 11:37] LABS: ALT 16 U/L (4-49); AST 26 U/L (17-59); African American GFR (CKD) >90 (>60 ml/min/1.73 sqM); Albumin 3.9 g/dL (3.5-5.0); Alkaline Phosphatase 92 U/L (38-126); Anion Gap 6 mmol/L; Blood Urea Nitrogen 8 mg/dL (9-20); Calcium 9.5 mg/dL (8.4-10.2); Carbon Dioxide 32 mmol/L (22-30); Chloride 102 mmol/L (98-107); Cholesterol 162 mg/dL (<200); Glucose 93 mg/dL (74-99); HDL Cholesterol 45 mg/dL (40-60); LDL Cholesterol,Calculated 100 mg/dL (0-99); Non-African American GFR(CKD) >90 (>60 ml/min/1.73 sqM); Potassium 4.4 mmol/L (3.5-5.1); Sodium 140 mmol/L (137-145); Total Bilirubin 0.4 mg/dL (0.2-1.3); Total Protein 7.2 g/dL (6.3-8.2); Triglycerides 83 mg/dL (<150)
--- NOTE | 2019-03-08 12:59 | XR ---
EXAMINATION TYPE: XR chest 2V DATE OF EXAM: 03/08/2019 COMPARISON: Chest x-ray January 15, 2019. HISTORY: Fever. TECHNIQUE: Frontal and lateral views of the chest are obtained. FINDINGS: There is moderate right apical pleural/parenchymal scarring redemonstrated. Background study lead kye emphysematous change. There is no no suspicious focal air space opacity, pleural effusion, or pne umothorax seen. The cardiac silhouette size remains within normal limits. Partial visualization of s urgical change lower cervical spine. Stable hardware through healed fracture left clavicle. Subacute fractures anterolateral left seventh through ninth ribs redemonstrated. IMPRESSION: Chronic changes without new suspicious acute infiltrate..
[2019-03-08 18:08] LABS: Hepatitis A Antibody IgM Non-Reactive (Non-Reactive); Hepatitis B Core IgM Non-Reactive (Non-Reactive); Hepatitis B Surface Antigen Non-Reactive (Non-Reactive); Hepatitis C IgG Antibody Non-Reactive (Non-Reactive)
[2019-03-08 19:01] LABS: Hemoglobin A1C 6.1 % (4.0-6.0)
--- NOTE | 2019-03-14 12:27 | P.ARTDOP ---
Arterial Doppler LOWER EXTREMITY ARTERIAL DOPPLER: DATE OF SERVICE: 03/08/2019 Reason for study: Preop CABG. Doppler waveforms: Multiphasic bilaterally throughout. Pulse volume recording: []. Pressure gradients: None. Ankle-brachial indices: Greater than 1 bilaterally. Toe pressures: [] on the right, [] on the left Impression: Normal study.
--- NOTE | 2019-03-14 12:29 | P.VSCSTY ---
Greater Saphenous Vein Mapping This is bilateral lower extremity greater saphenous vein mapping. Date of service: 03/08/2019 Vein quality and ultrasound appearance: No sign of intraluminal thrombus or wall changes. Vein size groin right : 6.1 x 6.9 groin left: 4.7 x 6.3 High thigh right: 3.2 x 4.4 high thigh left: 2.7 x 3.8 Mid thigh right: 2.8 x 3.3 mid thigh left: 2.6 x 4.1 Above-knee right: 2.6 x 3.6 above-knee left: 2.8 x 3.4 Below knee right: 2.3 x 2.9 below-knee left: 2.2 x 3.2 Mid calf right: 2.3 x 3.3 mid calf left: 1.2 x 1.4 Ankle right: 2.6 x 3.4 ankle left: 1.4 x 2.1 Impression: Usable bilateral greater saphenous vein. Small at the left mid calf and below..
--- NOTE | 2019-03-14 12:31 | P.ARTDOP ---
Arterial Doppler Bilateral radial artery study: Date of study: 03/08/2019 Reason for study: Preop CABG Findings: Doppler assessment shows no significant right to left or segmental pressure gradients Digital plethysmography with radial artery compression shows no significant pressure change Imaging shows the right to be 3.8 x 3.5 proximal 2.8 x 3.3 mid and 2.8 x 3.6 distal, the left is 4 x 4 proximal 3.1 x 3.9 mid and 3.1 x 4.0 distal Impression: Usable bilateral radial arteries by criteria
== END | disposition home or self-care (01) ==
LOC: LABPAT 08:15
PROVIDERS: ATTEND Thoracic Surgery (Cardiothoracic Vascular Surgery)
DX: J43.9 Emphysema, unspecified (principal); I25.10 Atherosclerotic heart disease of native coronary artery without angina pectoris; Z79.01 Long term (current) use of anticoagulants; Z79.899 Other long term (current) drug therapy
CPT/HCPCS: 36415; 71046; 80053; 80061; 80074; 81003; 83036; 83735; 84443; 85027; 85610; 85730; 87070; 87086; 93005; 93922; 93923; 93930; 93970; 94150

== ENCOUNTER 2019-03-14 05:42 | Inpatient (IN) | payer MEDICARE ==
[~2019-03-14 05:42] MED LIST: ALBUMIN HUMAN 25% 50 ML IV ONE; ASPIRIN 325 MG TAB PO ONE; ATORVASTATIN 10 MG TAB PO ONE; CALCIUM CHLORIDE 100 MG/ML 10 ML SYRINGE IV ONE; CARDIOPLEGIC SOLN (K+ 16 MEQ/L 1,000 ML with SODIUM BICARB (1 MEQ/ML) 20 ML, LIDOCAINE ... PERFUSION ONE; CHLORHEXIDINE GLUCONATE 15 ML CUP MUCOUS MEM ONE; CLEVIDIPINE BUTYRATE 25 MG in EMPTY BAG 1 BAG IV ONE; DILTIAZEM 125 MG in SODIUM CHLORIDE 0.9% 100 ML IV ONE; HEPARIN SODIUM 1,000 UN/ML (10ML VL) IV ONE; HEPARIN SODIUM,PORCINE 5,000 UNIT in SODIUM CHLORIDE 0.9% 500 ML 500 ML IV ONE; INSULIN REGULAR 100 UNIT in SODIUM CHLORIDE 0.9% 100 ML IV ONE; LACTATED RINGERS 1,000 ML IV ONE; MAGNESIUM SULFATE MG 500 MG/ML IV ONE; MANNITOL 25% 12.5 GM/50 ML VIAL IV ONE; METOPROLOL TARTRATE 12.5 MG TAB PO ONE; NITROGLYCERIN-D5W PMX 25 MG/250 ML BTL IV ONE; NITROGLYCERIN-D5W PMX 50 MG in DEXTROSE/WATER 1 250ML.BAG IV ONE; NOREPINEPHRINE 4 MG in SODIUM CHLORIDE 0.9% 250 ML IV ONE; PAPAVERINE 360 MG in SODIUM CHLORIDE 0.9% 90 ML IV ONE; PHENYLEPHRINE 40 MG in SODIUM CHLORIDE 0.9% 250 ML IV ONE; PROPOFOL 1,000 MG/100 ML VIAL IV ONE; PROTAMINE SULFATE 10 MG/ML 25 ML VIAL IV ONE; PROTAMINE SULFATE 250 MG in EMPTY BAG 1 BAG IV ONE; SODIUM BICARB 8.4% 50 ML SYR (1 MEQ/ML) IV ONE; SODIUM CHLORIDE 0.9% 1,000 ML IV ONE; TRANEXAMIC ACID 2,000 MG in SODIUM CHLORIDE 0.9% 80 ML IV ONE; ceFAZolin 1,000 MG in SODIUM CHLORIDE 0.9% IRRIGATIO 1,000 ML IRRIGATION ONE; ceFAZolin 2,000 MG in SODIUM CHLORIDE 0.9% 30 ML IVPB ONE
[2019-03-14] MEDS ORDERED: ALBUMIN HUMAN 5% (12.5gm) 250 ML BOTTLE IVPB ONE (07:51)
[2019-03-14] MEDS ORDERED: ceFAZolin 1,000 MG VIAL ONE (07:51)
[2019-03-14] MEDS ORDERED: ePHEDrine SULFATE/0.9% NACL/PF 50 MG/5 ML SYRINGE IV ONE (07:51)
[2019-03-14] MEDS ORDERED: ALBUMIN HUMAN 5% (25gm) 500 ML VIAL IVPB ONE (07:51)
[2019-03-14] MEDS ORDERED: fentaNYL (PF) 50 MCG/ML 2 ML AMP ONE (07:51)
[2019-03-14] MEDS ORDERED: PHENYLEPHRINE-0.9% NACL SYG 1 MG/10 ML SYRINGE ONE (07:51)
[2019-03-14] MEDS ORDERED: VECURONIUM 10 MG VIAL IV ONE (07:51)
[2019-03-14] MEDS ORDERED: PROPOFOL 10 MG/ML 20 ML VIAL IV ONE (07:51)
[2019-03-14] MEDS ORDERED: MIDAZOLAM 2 MG/2 ML VIAL ONE (07:51)
[2019-03-14] MEDS ORDERED: fentaNYL (PF) 50 MCG/ML 50 ML VIAL ONE (07:51)
[2019-03-14] MEDS ORDERED: SODIUM CHLORIDE 0.9% IRRIG 1,000 ML BTL IRRIGATION ONE (07:51)
[2019-03-14] MEDS ORDERED: ALBUTEROL INHALER 60 PUFF/8 GM INHALER INHALATION ONE (07:51)
[2019-03-14] MEDS ORDERED: PROTAMINE SULFATE 10 MG/ML 5 ML VIAL IV ONE (07:51)
[2019-03-14] MEDS ORDERED: HEPARIN SODIUM,PORCINE 10,000 UNIT/ML 1 ML VIAL ONE (07:51)
[2019-03-14] MEDS ORDERED: NITROGLYCERIN-D5W PMX 50 MG/250 ML BOTTLE IV ONE (07:51)
[2019-03-14] MEDS ORDERED: SUCCINYLCHOLINE CHLORIDE 100 MG/5 ML SYR IV ONE (07:51)
[2019-03-14] MEDS ORDERED: DILTIAZEM 125 MG in SODIUM CHLORIDE 0.9% 100 ML IV SCH ×2 (09:00→13:48)
[2019-03-14 09:11] LABS: ABG Base Excess 1.9 mmol/L; ABG Glucose Whole Blood 110 mg/dL (75-99); ABG HCO3 27 mmol/L (21-25); ABG Hematocrit 35 % (34.0-46.0); ABG Ionized Calcium 4.8 mg/dL (4.5-5.3); ABG Oxygen Saturation 99.9 % (94-97); ABG PCO2 46 mmHg (35-45); ABG PH 7.39 (7.35-7.45); ABG PO2 223 mmHg (83-108); ABG Potassium Whole Blood 3.9 mmol/L (3.4-4.5); ABG Sodium Whole Blood 141 mmol/L (135-146); ABG TCO2 29 mmol/L (19-24)
[2019-03-14] MEDS ORDERED: ALBUTEROL NEBULIZED 2.5 MG/3 ML INHALATION STA (09:52)
[2019-03-14] MEDS ORDERED: SODIUM CHLORIDE 0.9% 500 ML 500 ML with HEPARIN SODIUM,PORCINE 5,000 UNIT IV ONE ×2 (10:20)
[2019-03-14] MEDS ORDERED: PAPAVERINE 360 MG in SODIUM CHLORIDE 0.9% 90 ML IV ONE (10:20)
[2019-03-14] MEDS ORDERED: ceFAZolin 1,000 MG in SODIUM CHLORIDE 0.9% 1,000 ML IRRIGATION ONE (10:20)
[2019-03-14 10:32] LABS: ABG Base Excess -0.7 mmol/L; ABG Glucose Whole Blood 151 mg/dL (75-99); ABG HCO3 27 mmol/L (21-25); ABG Hematocrit 33 % (34.0-46.0); ABG Ionized Calcium 4.9 mg/dL (4.5-5.3); ABG Lactic Acid Whole Blood 0.6 mmol/L (0.5-1.6); ABG PCO2 59 mmHg (35-45); ABG PH 7.27 (7.35-7.45); ABG PO2 307 mmHg (83-108); ABG Potassium Whole Blood 3.7 mmol/L (3.4-4.5); ABG Sodium Whole Blood 142 mmol/L (135-146); ABG TCO2 29 mmol/L (19-24)
[2019-03-14 11:06] LABS: ABG Base Excess 0.5 mmol/L; ABG Glucose Whole Blood 142 mg/dL (75-99); ABG HCO3 26 mmol/L (21-25); ABG Hematocrit 31 % (34.0-46.0); ABG Ionized Calcium 4.8 mg/dL (4.5-5.3); ABG Lactic Acid Whole Blood 0.9 mmol/L (0.5-1.6); ABG Oxygen Saturation 99.9 % (94-97); ABG PCO2 48 mmHg (35-45); ABG PH 7.35 (7.35-7.45); ABG PO2 293 mmHg (83-108); ABG Potassium Whole Blood 3.5 mmol/L (3.4-4.5); ABG Sodium Whole Blood 142 mmol/L (135-146); ABG TCO2 28 mmol/L (19-24)
[2019-03-14 11:32] LABS: ABG Base Excess 0.1 mmol/L; ABG Glucose Whole Blood 133 mg/dL (75-99); ABG HCO3 26 mmol/L (21-25); ABG Hematocrit 30 % (34.0-46.0); ABG Ionized Calcium 4.7 mg/dL (4.5-5.3); ABG Lactic Acid Whole Blood 1.4 mmol/L (0.5-1.6); ABG Oxygen Saturation 99.8 % (94-97); ABG PCO2 46 mmHg (35-45); ABG PH 7.36 (7.35-7.45); ABG PO2 274 mmHg (83-108); ABG Potassium Whole Blood 3.5 mmol/L (3.4-4.5); ABG Sodium Whole Blood 142 mmol/L (135-146); ABG TCO2 27 mmol/L (19-24)
[2019-03-14 11:54] LABS: ABG Base Excess -0.4 mmol/L; ABG Glucose Whole Blood 130 mg/dL (75-99); ABG HCO3 26 mmol/L (21-25); ABG Hematocrit 30 % (34.0-46.0); ABG Ionized Calcium 4.7 mg/dL (4.5-5.3); ABG Lactic Acid Whole Blood 1.2 mmol/L (0.5-1.6); ABG Oxygen Saturation 99.8 % (94-97); ABG PCO2 49 mmHg (35-45); ABG PH 7.33 (7.35-7.45); ABG PO2 234 mmHg (83-108); ABG Potassium Whole Blood 3.6 mmol/L (3.4-4.5); ABG Sodium Whole Blood 142 mmol/L (135-146); ABG TCO2 27 mmol/L (19-24)
[2019-03-14 12:24] LABS: ABG Base Excess -1.7 mmol/L; ABG Glucose Whole Blood 124 mg/dL (75-99); ABG HCO3 25 mmol/L (21-25); ABG Hematocrit 29 % (34.0-46.0); ABG Ionized Calcium 4.6 mg/dL (4.5-5.3); ABG Lactic Acid Whole Blood 1.2 mmol/L (0.5-1.6); ABG Oxygen Saturation 99.8 % (94-97); ABG PCO2 50 mmHg (35-45); ABG PO2 291 mmHg (83-108); ABG Potassium Whole Blood 3.5 mmol/L (3.4-4.5); ABG Sodium Whole Blood 142 mmol/L (135-146); ABG TCO2 26 mmol/L (19-24)
[2019-03-14 13:42] LABS: ABG Base Excess -2.1 mmol/L; ABG Glucose Whole Blood 115 mg/dL (75-99); ABG HCO3 24 mmol/L (21-25); ABG Hematocrit 27 % (34.0-46.0); ABG Ionized Calcium 4.6 mg/dL (4.5-5.3); ABG Lactic Acid Whole Blood 1.2 mmol/L (0.5-1.6); ABG Oxygen Saturation 99.4 % (94-97); ABG PCO2 47 mmHg (35-45); ABG PH 7.32 (7.35-7.45); ABG PO2 190 mmHg (83-108); ABG Potassium Whole Blood 3.4 mmol/L (3.4-4.5); ABG Sodium Whole Blood 142 mmol/L (135-146); ABG TCO2 26 mmol/L (19-24)
[2019-03-14] MEDS ORDERED: PROPOFOL 1,000 MG in EMPTY BAG 1 BAG IV SCH (13:48)
[2019-03-14] MEDS ORDERED: METOCLOPRAMIDE 5 MG/ML 2 ML VIAL IVP PRN (13:48)
[2019-03-14] MEDS ORDERED: NITROGLYCERIN-D5W PMX 50 MG in DEXTROSE/WATER 1 250ML.BAG IV SCH (13:48)
[2019-03-14] MEDS ORDERED: Phosphorus Replacement Protoco 1 EACH MISC MISCELLANE PRN (13:48)
[2019-03-14] MEDS ORDERED: CALCIUM GLUCONATE 2 GM in SODIUM CHLORIDE 0.9% 100 ML IVPB PRN (13:48)
[2019-03-14] MEDS ORDERED: INSULIN REGULAR 100 UNIT in SODIUM CHLORIDE 0.9% 100 ML IV SCH (13:48)
[2019-03-14] MEDS ORDERED: AMIODARONE 360 MG in DEXTROSE 5% IN WATER 200 ML IV PRN ×2 (13:48)
[2019-03-14] MEDS ORDERED: AMIODARONE 300 MG in DEXTROSE 5% IN WATER 250 ML IV PRN ×2 (13:48)
[2019-03-14] MEDS ORDERED: BENZOCAINE/MENTHOL LOZENG 1 EACH LOZENGE MUCOUS MEM PRN (13:48)
[2019-03-14] MEDS ORDERED: DEXTROSE 5% IN WATER 100 ML with AMIODARONE 150 MG IV PRN (13:48)
[2019-03-14] MEDS ORDERED: Potassium Replacement Protocol 1 EACH MISC MISCELLANE PRN (13:48)
[2019-03-14] MEDS ORDERED: ONDANSETRON 4 MG/2 ML VIAL IVP PRN (13:48)
[2019-03-14] MEDS ORDERED: IPRATROPIUM-ALBUTEROL 3 ML NEB INHALATION PRN (13:48)
[2019-03-14] MEDS ORDERED: CLEVIDIPINE BUTYRATE 25 MG in EMPTY BAG 1 BAG IV SCH (13:48)
[2019-03-14] MEDS ORDERED: Magnesium Replacement Protocol 1 EACH MISC MISCELLANE PRN (13:48)
--- NOTE | 2019-03-14 14:07 | P.OP ---
Date of Procedure: 03/14/19 Preoperative Diagnosis: Coronary artery disease Postoperative Diagnosis: Same Procedure(s) Performed: Off pump CABG 5 with sequential BUSH to first diagonal and LAD, left radial artery graft to obtuse marginal, sequential saphenous vein graft to posterior lateral and posterior descending branches of the right coronary artery. Endovascular vein harvest, endovascular radial harvest, RAMY by anesthesia Anesthesia: ERUM Surgeon: Kike Meyers Business Systems Developer #1: Patrice Zapata Business Systems Developer #2: Bryant Schulte Estimated Blood Loss (ml): 200 IV fluids (ml): 3,000 Urine output (ml): 1,000 Pathology: none sent Condition: stable Disposition: PACU Indications for Procedure: 58-year-old male had positive calcium scoring CT. Seen by cardiology following some neck surgery which proceeded uneventfully. The tumor did a cardiac catheterization demonstrating severe three-vessel coronary artery disease. Elective CABG was scheduled. Operative Findings: RAMY demonstrated mild decrease in left ventricular ejection fraction with EF of 45-50%. Valvular valvular heart disease was not present. Conduits were good. Targets were good. Aorta was grossly normal. Description of Procedure: Patient was electively brought into the hospital and brought to the operating room. He was placed supine on the table. Following line placement general ane sthesia was induced. The anterior torso and lower extremities and left upper extremity were sterilely prepped and draped. Left radial artery harvest was performed with endovascular harvest technique. Left greater saphenous vein was harvested from mid calf to groin using endovascular harvest technique. Sternotomy was performed a left hemisternum retracted upwards and left internal mammary artery harvested on a vascularized pedicle left intact on its origin from the subclavian and divided distally. It was an excellent conduit. The left pleural space was drained with a 32-Swedish chest tube. The lungs were hyperinflated and ultimately bilateral blebs were noted. Standard sternal retractor was placed. Midline pericardiotomy was performed. The heart was 6 closed with pericardial sutures. The patient was systemically heparinized and a CTs were maintained greater than 250 during grafting. Suction stabilization was used during distal anastomosis. We first performed a sequential BUSH to diagonal LAD. This was planned and then the side to side anastomosis between the BUSH and the first diagonal was performed. First diagonal was a 1.5 mm vessel of good quality. It was opened and blood flow control the 1.5 mm flow through. The anastomosis was performed with running 8-0 Prolene suture. On completion anastomosis the flow through was removed effectively probing the proximal distal portion of the anastomosis. With the BUSH occluded a slow bleed was noted at the end of the BUSH and this markedly augmented with removal of the bulldog clamp. The bulldog clamp was placed distally on the BUSH. The EDWARD pedicle was tacked surrounding epicardium with 6-0 silk. Next the distal anastomosis of the BUSH to the LAD was performed in end-to-side fashion. The LAD was stabilized and opened in its midportion. It was a 2 mm vessel. Blood flow was controlled with a 1.5 mm flow through. Anastomosis was constructed with running 8-0 Prolene suture. On completion anastomosis flow through was removed effectively probing the proximal distal portion of the anastomosis. Suture was tied with good result and hemostasis and the inflow was open. Graft was noted to lay well with good length. EDWARD pedicle was tacked surrounding epicardium with 6-0 silk sutures. Next the inferior wall the heart was exposed. Posterior descending coronary artery was a large vessel with marketed proximal disease. Was grafted in its midportion. It was stabilized and opened and blood flow control with a 2 mm flow through. It was a 2.25 mm vessel. End-to-side anastomosis between saphenous vein and the PDA was performed with running 7-0 Prolene suture. On completion anastomosis flow through was removed effectively probing the proximal distal portion anastomosis. Suture was tied with good r esult and hemostasis condition. Good backbleeding was noted to the first valve. Next a [id number] anastomosis between the saphenous vein and the SHANNAN was performed. SHANNAN was a 2 mm vessel. It was stabilized and opened proximally. [id number] anastomosis was constructed in end-to-side fashion with running 7-0 Prolene suture. Blood flow was controlled 1.5 mm flow through. On completion anastomosis flow through was removed effectively probing the proximal distal portion anastomosis. Suture was tied with good result and hemostasis and the bulldog bulldog clamp was moved proximally. Graft was noted to lay well with good length between the 2 distal anastomoses. Graft was brought under the inferior inferior vena cava through the oblique sinus and up along the right side of the heart to the ascending aorta and cut to appropriate length. Lateral wall the heart was exposed. The major marginal branch was stabilized. Was opened fairly proximally. Was a 2 mm vessel. The flow was controlled 1.5 mm flow through. End to side anastomosis between the radial artery and the obtuse marginal was performed with running 7-0 Prolene suture. On completion anastomosis flow through was removed 50 probe the proximal portion anastomosis. Suture was tied with good result and hemostasis. Good backbleeding was noted in the radial artery controlled with a bulldog clamp. Radial artery was brought beneath the BUSH to the ascending aorta and cut to appropriate length. Partial- occlusion clamp was placed on the ascending aorta after Prolene blood pressure. Two 4 mm punch holes were created in the ascending aorta and the proximal anastomosis constructed with running 6-0 Prolene suture. Radial artery was de- aired by backbleeding and the vein graft with needle holes. Partial-occlusion c lamp was opened in the inflow was open to the grafts. All anastomoses were checked for hemostasis. Was reassured good hemostasis heparin was reversed with protamine and chest subsequently irrigated with antibiotic solution. Bilateral pleural spaces were drained with 32-Swedish chest tubes in the mediastinum with a 36-Swedish chest tube. After assuring good hemostasis sternum was closed with 8 sternal wires, the fascia with 0 Ethibond subcutaneous and subcuticular layers with layers of Vicryl suture. Dry sterile dressings were applied and the patient was transferred to ICU in stable condition.
[2019-03-14 14:25] LABS: Glucose,Whole Blood 115 mg/dL (75-99)
[2019-03-14 14:30] LABS: ABG Base Excess -1.3 mmol/L; ABG HCO3 25 mmol/L (21-25); ABG Oxygen Saturation 99.8 % (94-97); ABG PCO2 53 mmHg (35-45); ABG PH 7.29 (7.35-7.45); ABG PO2 >400 mmHg (83-108); ABG TCO2 27 mmol/L (19-24); Allen Test Performed? Yes
[2019-03-14 14:36] LABS: Basophils % (A) 0 %; Eosinophils # (A) 0.1 k/uL (0-0.7); Eosinophils % (A) 1 %; Lymphocytes # (A) 1.6 k/uL (1.0-4.8); Lymphocytes % (A) 15 %; MCH 31.5 pg (25.0-35.0); MCHC 34.2 g/dL (31.0-37.0); Mean Platelet Volume 7.2; Monocytes # (A) 0.3 k/uL (0-1.0); Monocytes % (A) 2 %; Neutrophils # (A) 8.6 k/uL (1.3-7.7); Neutrophils % (A) 81 %; Platelet Count 172 k/uL (150-450); RBC 2.94 m/uL (4.30-5.90); RDW 13.2 % (11.5-15.5); WBC 10.6 k/uL (3.8-10.6)
--- NOTE | 2019-03-14 14:37 | XR ---
EXAMINATION TYPE: XR chest 1V portable DATE OF EXAM: 03/14/2019 CLINICAL HISTORY: Postopen cardiac surgery. TECHNIQUE: Single AP portable frontal view of the chest is obtained. COMPARISON: Chest x-ray from 6 days earlier FINDINGS: New endotracheal tube terminates below the clavicular margin and above the aortic knob lizeth roximately 6 cm above talon. New orogastric tube projects below diaphragm. New right internal jugula r [place] catheter terminating at level pulmonary outflow tract centrally. New bilateral chest tube s and mediastinal drainage catheter. Background chronic emphysematous change with patchy bibasilar atelectasis. Post-CABG changes with med iastinal clips and sternal wires are now seen. Cardiac silhouette size is upper limits of normal. Mahin gical changes to left clavicle and lower cervical spine redemonstrated. Subcutaneous emphysema left g reater than right chest proctor noted. IMPRESSION: 1. New tubes and lines are satisfactory in position. 2. Background chronic emphysematous change with patchy bilateral lower lung atelectasis. No pneumotho rax identified with bilateral chest tubes in place. New subcutaneous emphysema is noted bilaterally.
[2019-03-14 14:45] LABS: ALT 9 U/L (4-49); AST 20 U/L (17-59); African American GFR (CKD) >90 (>60 ml/min/1.73 sqM); Albumin 3.6 g/dL (3.5-5.0); Alkaline Phosphatase 41 U/L (38-126); Anion Gap 7 mmol/L; Blood Urea Nitrogen 11 mg/dL (9-20); Carbon Dioxide 25 mmol/L (22-30); Chloride 110 mmol/L (98-107); Glucose 104 mg/dL (74-99); Magnesium 1.4 mg/dL (1.6-2.3); Non-African American GFR(CKD) >90 (>60 ml/min/1.73 sqM); Potassium 3.6 mmol/L (3.5-5.1); Sodium 142 mmol/L (137-145); Total Bilirubin 0.4 mg/dL (0.2-1.3); Total Protein 5.6 g/dL (6.3-8.2)
[2019-03-14 15:00] LABS: HGB 9.2 gm/dL (13.0-17.5)
[2019-03-14 15:03] LABS: INR 1.2 (<1.2); Partial Thromboplastin Time 29.7 sec (22.0-30.0); Prothrombin Time 12.3 sec (9.0-12.0)
[2019-03-14 15:19] LABS: Glucose,Whole Blood 110 mg/dL (75-99)
[2019-03-14] MEDS: LACTATED RINGERS 1,000 ML IV SCH (15:19)
[2019-03-14] MEDS ORDERED: POTASSIUM BICARBONATE/CIT AC 20 MEQ TABLET.EFF NG-TUBE SCH (16:00)
[2019-03-14] MEDS ORDERED: IPRATROPIUM-ALBUTEROL 3 ML NEB INHALATION SCH (16:00)
[2019-03-14] MEDS: MAGNESIUM SULFATE-D5W PMX 1 GM in DEXTROSE/WATER 1 100ML.BAG IVPB SCH ×3 (16:10→19:33)
[2019-03-14 16:26] LABS: ABG Base Excess -0.9 mmol/L; ABG HCO3 25 mmol/L (21-25); ABG Oxygen Saturation 97.7 % (94-97); ABG PCO2 46 mmHg (35-45); ABG PH 7.34 (7.35-7.45); ABG PO2 103 mmHg (83-108); ABG TCO2 26 mmol/L (19-24); Allen Test Performed? Yes
[2019-03-14 16:37] LABS: Glucose,Whole Blood 115 mg/dL (75-99)
[2019-03-14] MEDS: KETOROLAC 30 MG/ML 1 ML VIAL IVP SCH ×2 (17:04→23:39)
[2019-03-14] MEDS: ALBUMIN HUMAN 5% 250 ML in EMPTY BAG 1 BAG IVPB PRN ×2 (17:06→19:45)
[2019-03-14] MEDS: ACETAMINOPHEN IV (For NPO) 1,000 MG in EMPTY BAG 1 BAG IVPB SCH ×2 (18:01→23:40)
[2019-03-14 18:07] LABS: Glucose,Whole Blood 122 mg/dL (75-99)
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
[2019-03-14 18:25] LABS: Basophils % (A) 0 %; Eosinophils % (A) 0 %; HGB 9.5 gm/dL (13.0-17.5); Lymphocytes # (A) 0.7 k/uL (1.0-4.8); Lymphocytes % (A) 8 %; MCH 31.2 pg (25.0-35.0); MCHC 34.1 g/dL (31.0-37.0); MCV 91.3 fL (80.0-100.0); Mean Platelet Volume 7.3; Monocytes # (A) 0.4 k/uL (0-1.0); Monocytes % (A) 5 %; Neutrophils % (A) 86 %; Platelet Count 179 k/uL (150-450); RBC 3.06 m/uL (4.30-5.90); WBC 9.3 k/uL (3.8-10.6)
[2019-03-14 19:30] LABS: Glucose,Whole Blood 118 mg/dL (75-99)
[2019-03-14] MEDS: IPRATROPIUM-ALBUTEROL 3 ML NEB INHALATION SCH ×2 (19:49)
[2019-03-14 20:13] LABS: Glucose,Whole Blood 133 mg/dL (75-99)
[2019-03-14] MEDS ORDERED: MUPIROCIN 2% OINT 22 GM TUBE NASAL ONE (20:30)
[2019-03-14 20:52] LABS: Basophils % (A) 0 %; Eosinophils # (A) 0.1 k/uL (0-0.7); Eosinophils % (A) 1 %; HCT 27.4 % (39.0-53.0); HGB 9.6 gm/dL (13.0-17.5); Lymphocytes # (A) 0.8 k/uL (1.0-4.8); Lymphocytes % (A) 10 %; MCH 32.1 pg (25.0-35.0); MCV 91.6 fL (80.0-100.0); Mean Platelet Volume 6.9; Monocytes # (A) 0.3 k/uL (0-1.0); Monocytes % (A) 4 %; Neutrophils # (A) 7.1 k/uL (1.3-7.7); Neutrophils % (A) 85 %; Platelet Count 176 k/uL (150-450); RBC 2.99 m/uL (4.30-5.90); RDW 13.1 % (11.5-15.5); WBC 8.3 k/uL (3.8-10.6)
[2019-03-14] MEDS ORDERED: POTASSIUM CHLORIDE ER 20 MEQ TAB.ER PO SCH (21:00)
[2019-03-14 21:14] LABS: Glucose,Whole Blood 97 mg/dL (75-99)
[2019-03-14] MEDS: HEPARIN SODIUM,PORCINE 5,000 UNIT/ML 1 ML VIAL SQ SCH (21:34)
[2019-03-14 22:18] LABS: Glucose,Whole Blood 107 mg/dL (75-99)
[2019-03-14 23:18] LABS: Glucose,Whole Blood 108 mg/dL (75-99)
[2019-03-15] MEDS: ALBUMIN HUMAN 5% 250 ML in EMPTY BAG 1 BAG IVPB PRN (00:19)
[2019-03-15 00:44] LABS: Glucose,Whole Blood 102 mg/dL (75-99)
[2019-03-15 01:18] LABS: Glucose,Whole Blood 116 mg/dL (75-99)
[2019-03-15] MEDS ORDERED: HYDROcodone/APAP 5-325MG 1 EACH TAB PO PRN ×2 (01:27)
[2019-03-15 02:21] LABS: Glucose,Whole Blood 110 mg/dL (75-99)
[2019-03-15 03:24] LABS: Glucose,Whole Blood 109 mg/dL (75-99)
[2019-03-15 04:25] LABS: Glucose,Whole Blood 125 mg/dL (75-99)
[2019-03-15 04:27] LABS: Basophils % (A) 0 %; Eosinophils # (A) 0.1 k/uL (0-0.7); Eosinophils % (A) 1 %; HCT 27.2 % (39.0-53.0); HGB 9.4 gm/dL (13.0-17.5); Lymphocytes # (A) 1.2 k/uL (1.0-4.8); Lymphocytes % (A) 17 %; MCH 31.5 pg (25.0-35.0); MCHC 34.6 g/dL (31.0-37.0); MCV 90.9 fL (80.0-100.0); Monocytes # (A) 0.3 k/uL (0-1.0); Monocytes % (A) 5 %; Neutrophils # (A) 5.7 k/uL (1.3-7.7); Neutrophils % (A) 77 %; Platelet Count 176 k/uL (150-450); RBC 2.99 m/uL (4.30-5.90); RDW 13.1 % (11.5-15.5); WBC 7.4 k/uL (3.8-10.6)
[2019-03-15 04:39] LABS: Ionized Calcium 5.2 mg/dL (4.5-5.3)
[2019-03-15 04:46] LABS: ALT 8 U/L (4-49); AST 25 U/L (17-59); African American GFR (CKD) >90 (>60 ml/min/1.73 sqM); Albumin 3.3 g/dL (3.5-5.0); Alkaline Phosphatase 41 U/L (38-126); Anion Gap 5 mmol/L; Blood Urea Nitrogen 9 mg/dL (9-20); Calcium 8.6 mg/dL (8.4-10.2); Carbon Dioxide 25 mmol/L (22-30); Chloride 107 mmol/L (98-107); Glucose 112 mg/dL (74-99); Non-African American GFR(CKD) >90 (>60 ml/min/1.73 sqM); Potassium 3.9 mmol/L (3.5-5.1); Sodium 137 mmol/L (137-145); Total Bilirubin 0.7 mg/dL (0.2-1.3); Total Protein 5.2 g/dL (6.3-8.2)
[2019-03-15 05:22] LABS: Glucose,Whole Blood 97 mg/dL (75-99)
[2019-03-15] MEDS ORDERED: POTASSIUM CHLORIDE ER 20 MEQ TAB.ER PO SCH (06:00)
[2019-03-15] MEDS: KETOROLAC 30 MG/ML 1 ML VIAL IVP SCH ×3 (06:21→17:28)
[2019-03-15] MEDS: HEPARIN SODIUM,PORCINE 5,000 UNIT/ML 1 ML VIAL SQ SCH ×3 (06:25→22:08)
[2019-03-15] MEDS: ACETAMINOPHEN TAB 500 MG TAB PO PRN (06:51)
[2019-03-15 07:12] LABS: Glucose,Whole Blood 123 mg/dL (75-99)
[2019-03-15 07:42] LABS: Glucose,Whole Blood 229 mg/dL (75-99)
[2019-03-15] MEDS: IPRATROPIUM-ALBUTEROL 3 ML NEB INHALATION SCH ×4 (08:06→20:07)
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
--- NOTE | 2019-03-15 08:07 | XR ---
EXAMINATION TYPE: XR chest 1V portable DATE OF EXAM: 03/15/2019 Comparison: 03/14/2019 Clinical History: 58-year-old male Post Operative Cardiac Surgery Findings: Interval extubation and removal of NG tube. Median sternotomy wires and post-CABG clips. Mediastinal drain and bilateral chest tubes remain in place. Biapical pneumothoraces are suggested, measuring up to 7 mm mild interstitial prominence. Borderline heart size. Bands of atelectasis in the lower lungs. No sizable effusion. Right IJ [place] catheter with tip in the main pulmonary outflow tract. Plate and screw fixation left clavicular shaft. Impression: 1. Bilateral chest tubes in place. Trace biapical pneumothoraces measuring up to 7 mm are suggested. 2. There may be some mild pulmonary vascular congestion. Prominent bibasilar bands of atelectasis.
[2019-03-15 08:16] LABS: Glucose,Whole Blood 168 mg/dL (75-99)
[2019-03-15] MEDS: CLOPIDOGREL 75 MG TAB PO SCH (08:16)
[2019-03-15] MEDS: THIAMINE 100 MG TAB PO SCH (08:16)
[2019-03-15] MEDS: FOLIC ACID 1 MG TAB PO SCH (08:16)
[2019-03-15] MEDS: DILTIAZEM ORAL 30 MG TAB PO SCH ×3 (08:16→17:28)
[2019-03-15] MEDS: METOPROLOL TARTRATE 12.5 MG TAB PO SCH ×2 (08:16→22:04)
[2019-03-15] MEDS: ATORVASTATIN 40 MG TAB PO SCH (08:16)
[2019-03-15] MEDS: ASPIRIN 325 MG TAB PO SCH (08:16)
[2019-03-15] MEDS: LACTATED RINGERS 1,000 ML IV SCH (08:18)
[2019-03-15] MEDS ORDERED: BISACODYL 10 MG SUPP RECTAL PRN (09:00)
[2019-03-15] MEDS ORDERED: PANTOPRAZOLE 40 MG/10 ML VIAL IVP SCH (09:00)
[2019-03-15] MEDS ORDERED: MAGNESIUM HYDROXIDE 2,400 MG/10 ML CUP PO PRN (09:00)
[2019-03-15 09:18] LABS: Glucose,Whole Blood 130 mg/dL (75-99)
--- NOTE | 2019-03-15 09:42 | CONS ---
CONSULTATION Tom Crook is a 58-year-old gentleman who underwent aortocoronary bypass surgery performed by Dr. Kike Meyers yesterday. He has been extubated. He looks good this morning. He is sitting up in the chair. He underwent aortocoronary bypass surgery with a sequential BUSH graft to the LAD and first diagonal, a free left radial artery graft to the obtuse marginal branch of circumflex and a sequential saphenous vein graft to the PDA and PLV branches of RCA. Postoperatively, he is not on pressors. He is doing well. Apparently a transesophageal echo preoperatively demonstrated ejection fraction of 45% to 50%. Patient had a cardiac catheterization by Dr. Lambert, which revealed a calcified triple-vessel disease and was advised aortocoronary bypass surgery to be performed electively. He looks good this morning, sitting up in the bed. Denies any chest discomfort other than incisional pain. He breathing is fairly decent. Urine output is decent. He is resting comfortably. PAST MEDICAL HISTORY: Past medical history is remarkable for: 1. Hypertension. 2. Hyperlipidemia. 3. CAD, triple-vessel with calcified coronary arteries with abnormal calcium score. MEDICATIONS: Medications at home include Lopressor, Imdur, atorvastatin and aspirin. PHYSICAL EXAMINATION: On examination, blood pressure is 118/70, pulse rate is about 80 per minute, sinus. HEENT: Unremarkable. Fundus was not examined by me. NECK: Is supple. No JVD. I do not hear a carotid bruit. HEART: Exam reveals S1, S2 heard normally, short systolic murmur at left lower sternal border. LUNGS: Reveal diminished air entry. ABDOMEN: Soft. LOWER EXTREMITIES: Reveal diminished pulses. CENTRAL NERVOUS SYSTEM: Grossly no focal deficits. EKG revealed sinus mechanism, mild IVCD. IMPRESSION: 1. Coronary artery disease, status post bypass surgery, postoperative day 1. 2. Hypertension. 3. Hyperlipidemia. RECOMMENDATION: I am recommending that we continue current medical regimen and medications have been reviewed. Advised to continue incentive spirometry and pulmonary toilet. We will continue to follow patient postoperatively. Thank you very much for the consult. MMODL / IJN: [id number] /
[2019-03-15 10:02] VITALS: BMI 16.4
[2019-03-15 11:16] LABS: Glucose,Whole Blood 109 mg/dL (75-99)
[2019-03-15 12:00] LABS: Glucose,Whole Blood 101 mg/dL (75-99)
[2019-03-15] MEDS: INSULIN ASPART (NovoLOG) 100 UNIT/ML VIAL SQ SCH ×3 (12:13→22:00)
--- NOTE | 2019-03-15 13:22 | P.PN ---
Subjective Progress Note Date: 03/15/19 Principal diagnosis: Off pump CABG 5 with sequential BUSH to first diagonal and LAD, left radial artery graft to obtuse marginal, sequential saphenous vein graft to posterior lateral and posterior descending branches of the right coronary artery. Endovascular vein harvest, endovascular radial harvest, RAMY by anesthesia, postoperative day #1 This is a 58-year-old white male who had recent cervical stenosis and surgery. Prior to his cardiac clearance, the patient had CT calcium score, and it was noted to be high. Hence after his cervical surgery, patient underwent cardiac catheterization, and demonstrated a three-vessel coronary artery disease with 95+ stenosis in the LAD and circumflex distributions along with 90+ percent stenosis in the right coronary artery. The right coronary artery was noted to be dominant, and leads 2 to posterior lateral branches. Patient was referred to surgery, and today the patient underwent elective 5 bypasses, one to LAD, first diagonal, obtuse marginal, PDA, and right coronary artery. Postoperatively patient was sent to the ICU on mechanical ventilation. And I was asked to see him on consultation. As a matter of fact by the time I saw the patient, he was already awake, and he was on CPAP. Continued the patient on CPAP, ABG 1 hour later was adequate, patient was extubated uneventfully to a nasal cannula. Reevaluated today on 03/15/2019, patient remains in the ICU, he was extubated yesterday uneventfully. Denies any shortness of breath, no cough, no wheezing, he is actually on room air, not requiring any pressors or any inotropes. Currently on IV Cardizem and nitroglycerin. Chest x-ray showed minimal bibasilar atelectasis with small tiny apical pneumothoraces, not clinically significant. Chest tubes noted on both sides. Labs were reviewed and they seem to be relatively unremarkable including normal renal profile and normal CBC and normal electrolytes. Objective - Vital Signs Vital signs: Vital Signs Temp 98 F 03/15/19 12:00 Pulse 90 03/15/19 12:39 Resp 14 03/15/19 12:00 BP 105/71 03/15/19 12:00 Pulse Ox 94 L 03/15/19 12:00 Intake & Output 03/14/19 03/15/19 03/15/19 18:59 06:59 18:59 Intake Total 772 1840.518 852 Output Total 2543 2022 455 Balance -1771 -181.482 397 Weight 53.5 kg 53.5 kg Intake: IV 772 1639.5 852 0.9 Pressure Bags 45 108 102 Albumin Human 5% 250 ml 250 500 250 In Empty Bag 1 bag @ 250 mls/hr IVPB Q1HR PRN Rx#: [id number] CO/CI 220 20 Cardizem 55 10 Lactated Ringers 1,000 ml 220 590 470 @ 20 mls/hr IV .Q24H GERMAINE Rx#:[id number] Magnesium Sulfate-D5w Pmx 200 100 1 gm In Dextrose/Water 1 100ml.bag @ 100 mls/hr IVPB Q1H GERMAINE Rx#: [id number] Nitroglycerine 16.5 0 ceFAZolin 2 gm In Sodium 50 50 Chloride 0.9% 50 ml @ 100 mls/hr IVPB Q8HR GERMAINE Rx# :[id number] Intake, IV Titration 101.018 Amount ACETAMINOPHEN IV (For NPO 100 ) 1,000 mg In Empty Bag 1 bag @ 400 mls/hr IVPB Q6HR GERMAINE Rx#:[id number] Insulin Regular 100 unit 1.018 In Sodium Chloride 0.9% 100 ml @ Per Protocol IV .Q0M GERMAINE Rx#:[id number] Oral 100 Output: Chest Tube Drainage 428 962 10 Chest Tube Bilateral 158 572 10 Chest Tube Mediastinal 270 390 0 Drainage 150 Bilateral Medial Chest 90 Medial Chest 60 Urine 1215 1060 295 Estimated Blood Loss 900 Other: Voiding Method Indwelling Catheter Indwelling Catheter Indwelling Catheter ABP, PAP, CO, CI - Last Documented Arterial Blood Pressure 113/57 Pulmonary Artery Pressure 20/7 Cardiac Output 7.4 Cardiac Index 4 - Exam Physical Exam: Revealed a 58-year-old white male, on room air, in no distress Head: Atraumatic, normocephalic. HEENT:[Neck is supple.] [No neck masses.] [No thyromegaly.] [No JVD.] Chest: [Crackles at the bases no rhonchi no wheezes. Chest tubes were noted bilaterally. Cardiac Exam: [Normal S1 and S2, positive pericardial rub. Abdomen: [Soft, nontender, no megaly, no rebound, no guarding, normal bowel sounds.] Extremities: [No clubbing, no edema, no cyanosis.]SCDs present. Neurological Exam: Alert and oriented 3, no gross focal deficits.. Skin: No rashes. Lymphatics: No lymphadenopathy. Psychiatric: Normal mood, blunt affect, normal mental status examination. - Labs CBC & Chem 7: 03/15/19 04:00 03/15/19 04:00 Labs: Abnormal Lab Results - Last 24 Hours (Table) 03/08/19 03/14/19 03/14/19 Range/Units 08:57 09:12 10:32 RBC (4.30-5.90) m/uL Hgb (13.0-17.5) gm/dL Hct (39.0-53.0) % Neutrophils # (1.3-7.7) k/uL Lymphocytes # (1.0-4.8) k/uL PT (9.0-12.0) sec INR (<1.2) ABG pH 7.27 L (7.35-7.45) ABG pCO2 46 H 59 H (35-45) mmHg ABG pO2 223 H 307 H (83-108) mmHg ABG HCO3 27 H 27 H (21-25) mmol/L ABG Total CO2 29 H 29 H (19-24) mmol/L ABG O2 Saturation 99.9 H 100.0 H (94-97) % ABG Hematocrit 33 L (34.0-46.0) % ABG Glucose 110 H 151 H (75-99) mg/dL Hemoglobin 11.5 L 10.8 L (13.0-17.5) gm/dL Chloride (98-107) mmol/L Creatinine (0.66-1.25) mg/dL Glucose (74-99) mg/dL POC Glucose (mg/dL) (75-99) mg/dL Calcium (8.4-10.2) mg/dL Magnesium (1.6-2.3) mg/dL Total Protein (6.3-8.2) g/dL Albumin (3.5-5.0) g/dL Arterial Blood Glucose 110 H 151 H (75-99) mg/dL Crossmatch See Detail 03/14/19 03/14/19 03/14/19 Range/Units 11:07 11:32 11:55 RBC (4.30-5.90) m/uL Hgb (13.0-17.5) gm/dL Hct (39.0-53.0) % Neutrophils # (1.3-7.7) k/uL Lymphocytes # (1.0-4.8) k/uL PT (9.0-12.0) sec INR (<1.2) ABG pH 7.33 L (7.35-7.45) ABG pCO2 48 H 46 H 49 H (35-45) mmHg ABG pO2 293 H 274 H 234 H (83-108) mmHg ABG HCO3 26 H 26 H 26 H (21-25) mmol/L ABG Total CO2 28 H 27 H 27 H (19-24) mmol/L ABG O2 Saturation 99.9 H 99.8 H 99.8 H (94-97) % ABG Hematocrit 31 L 30 L 30 L (34.0-46.0) % ABG Glucose 142 H 133 H 130 H (75-99) mg/dL Hemoglobin 10.0 L 9.8 L 9.9 L (13.0-17.5) gm/dL Chloride (98-107) mmol/L Creatinine (0.66-1.25) mg/dL Glucose (74-99) mg/dL POC Glucose (mg/dL) (75-99) mg/dL Calcium (8.4-10.2) mg/dL Magnesium (1.6-2.3) mg/dL Total Protein (6.3-8.2) g/dL Albumin (3.5-5.0) g/dL Arterial Blood Glucose 142 H 133 H 130 H (75-99) mg/dL Crossmatch 03/14/19 03/14/19 03/14/19 Range/Units 12:25 13:08 14:13 RBC (4.30-5.90) m/uL Hgb (13.0-17.5) gm/dL Hct (39.0-53.0) % Neutrophils # (1.3-7.7) k/uL Lymphocytes # (1.0-4.8) k/uL PT (9.0-12.0) sec INR (<1.2) ABG pH 7.30 L 7.32 L (7.35-7.45) ABG pCO2 50 H 47 H (35-45) mmHg ABG pO2 291 H 190 H (83-108) mmHg ABG HCO3 (21-25) mmol/L ABG Total CO2 26 H 26 H (19-24) mmol/L ABG O2 Saturation 99.8 H 99.4 H (94-97) % ABG Hematocrit 29 L 27 L (34.0-46.0) % ABG Glucose 124 H 115 H (75-99) mg/dL Hemoglobin 9.5 L 8.9 L (13.0-17.5) gm/dL Chloride (98-107) mmol/L Creatinine (0.66-1.25) mg/dL Glucose (74-99) mg/dL POC Glucose (mg/dL) 115 H (75-99) mg/dL Calcium (8.4-10.2) mg/dL Magnesium (1.6-2.3) mg/dL Total Protein (6.3-8.2) g/dL Albumin (3.5-5.0) g/dL Arterial Blood Glucose 124 H 115 H (75-99) mg/dL Crossmatch 03/14/19 03/14/19 03/14/19 Range/Units 14:15 14:15 14:15 RBC 2.94 L (4.30-5.90) m/uL Hgb 9.2 L D (13.0-17.5) gm/dL Hct 27.0 L (39.0-53.0) % Neutrophils # 8.6 H (1.3-7.7) k/uL Lymphocytes # (1.0-4.8) k/uL PT 12.3 H (9.0-12.0) sec INR 1.2 H (<1.2) ABG pH (7.35-7.45) ABG pCO2 (35-45) mmHg ABG pO2 (83-108) mmHg ABG HCO3 (21-25) mmol/L ABG Total CO2 (19-24) mmol/L ABG O2 Saturation (94-97) % ABG Hematocrit (34.0-46.0) % ABG Glucose (75-99) mg/dL Hemoglobin (13.0-17.5) gm/dL Chloride 110 H (98-107) mmol/L Creatinine 0.45 L (0.66-1.25) mg/dL Glucose 104 H (74-99) mg/dL POC Glucose (mg/dL) (75-99) mg/dL Calcium 8.0 L (8.4-10.2) mg/dL Magnesium 1.4 L (1.6-2.3) mg/dL Total Protein 5.6 L (6.3-8.2) g/dL Albumin (3.5-5.0) g/dL Arterial Blood Glucose (75-99) mg/dL Crossmatch 03/14/19 03/14/19 03/14/19 Range/Units 14:23 15:07 16:22 RBC (4.30-5.90) m/uL Hgb (13.0-17.5) gm/dL Hct (39.0-53.0) % Neutrophils # (1.3-7.7) k/uL Lymphocytes # (1.0-4.8) k/uL PT (9.0-12.0) sec INR (<1.2) ABG pH 7.29 L (7.35-7.45) ABG pCO2 53 H (35-45) mmHg ABG pO2 >400 H (83-108) mmHg ABG HCO3 (21-25) mmol/L ABG Total CO2 27 H (19-24) mmol/L ABG O2 Saturation 99.8 H (94-97) % ABG Hematocrit (34.0-46.0) % ABG Glucose (75-99) mg/dL Hemoglobin (13.0-17.5) gm/dL Chloride (98-107) mmol/L Creatinine (0.66-1.25) mg/dL Glucose (74-99) mg/dL POC Glucose (mg/dL) 110 H 115 H (75-99) mg/dL Calcium (8.4-10.2) mg/dL Magnesium (1.6-2.3) mg/dL Total Protein (6.3-8.2) g/dL Albumin (3.5-5.0) g/dL Arterial Blood Glucose (75-99) mg/dL Crossmatch 03/14/19 03/14/19 03/14/19 Range/Units 16:24 17:56 18:10 RBC 3.06 L (4.30-5.90) m/uL Hgb 9.5 L (13.0-17.5) gm/dL Hct 28.0 L (39.0-53.0) % Neutrophils # 8.0 H (1.3-7.7) k/uL Lymphocytes # 0.7 L (1.0-4.8) k/uL PT (9.0-12.0) sec INR (<1.2) ABG pH 7.34 L (7.35-7.45) ABG pCO2 46 H (35-45) mmHg ABG pO2 (83-108) mmHg ABG HCO3 (21-25) mmol/L ABG Total CO2 26 H (19-24) mmol/L ABG O2 Saturation 97.7 H (94-97) % ABG Hematocrit (34.0-46.0) % ABG Glucose (75-99) mg/dL Hemoglobin (13.0-17.5) gm/dL Chloride (98-107) mmol/L Creatinine (0.66-1.25) mg/dL Glucose (74-99) mg/dL POC Glucose (mg/dL) 122 H (75-99) mg/dL Calcium (8.4-10.2) mg/dL Magnesium (1.6-2.3) mg/dL Total Protein (6.3-8.2) g/dL Albumin (3.5-5.0) g/dL Arterial Blood Glucose (75-99) mg/dL Crossmatch 03/14/19 03/14/19 03/14/19 Range/Units 19:19 20:01 20:35 RBC 2.99 L (4.30-5.90) m/uL Hgb 9.6 L (13.0-17.5) gm/dL Hct 27.4 L (39.0-53.0) % Neutrophils # (1.3-7.7) k/uL Lymphocytes # 0.8 L (1.0-4.8) k/uL PT (9.0-12.0) sec INR (<1.2) ABG pH (7.35-7.45) ABG pCO2 (35-45) mmHg ABG pO2 (83-108) mmHg ABG HCO3 (21-25) mmol/L ABG Total CO2 (19-24) mmol/L ABG O2 Saturation (94-97) % ABG Hematocrit (34.0-46.0) % ABG Glucose (75-99) mg/dL Hemoglobin (13.0-17.5) gm/dL Chloride (98-107) mmol/L Creatinine (0.66-1.25) mg/dL Glucose (74-99) mg/dL POC Glucose (mg/dL) 118 H 133 H (75-99) mg/dL Calcium (8.4-10.2) mg/dL Magnesium (1.6-2.3) mg/dL Total Protein (6.3-8.2) g/dL Albumin (3.5-5.0) g/dL Arterial Blood Glucose (75-99) mg/dL Crossmatch 03/14/19 03/14/19 03/15/19 Range/Units 22:06 23:07 00:32 RBC (4.30-5.90) m/uL Hgb (13.0-17.5) gm/dL Hct (39.0-53.0) % Neutrophils # (1.3-7.7) k/uL Lymphocytes # (1.0-4.8) k/uL PT (9.0-12.0) sec INR (<1.2) ABG pH (7.35-7.45) ABG pCO2 (35-45) mmHg ABG pO2 (83-108) mmHg ABG HCO3 (21-25) mmol/L ABG Total CO2 (19-24) mmol/L ABG O2 Saturation (94-97) % ABG Hematocrit (34.0-46.0) % ABG Glucose (75-99) mg/dL Hemoglobin (13.0-17.5) gm/dL Chloride (98-107) mmol/L Creatinine (0.66-1.25) mg/dL Glucose (74-99) mg/dL POC Glucose (mg/dL) 107 H 108 H 102 H (75-99) mg/dL Calcium (8.4-10.2) mg/dL Magnesium (1.6-2.3) mg/dL Total Protein (6.3-8.2) g/dL Albumin (3.5-5.0) g/dL Arterial Blood Glucose (75-99) mg/dL Crossmatch 03/15/19 03/15/19 03/15/19 Range/Units 01:06 02:10 03:11 RBC (4.30-5.90) m/uL Hgb (13.0-17.5) gm/dL Hct (39.0-53.0) % Neutrophils # (1.3-7.7) k/uL Lymphocytes # (1.0-4.8) k/uL PT (9.0-12.0) sec INR (<1.2) ABG pH (7.35-7.45) ABG pCO2 (35-45) mmHg ABG pO2 (83-108) mmHg ABG HCO3 (21-25) mmol/L ABG Total CO2 (19-24) mmol/L ABG O2 Saturation (94-97) % ABG Hematocrit (34.0-46.0) % ABG Glucose (75-99) mg/dL Hemoglobin (13.0-17.5) gm/dL Chloride (98-107) mmol/L Creatinine (0.66-1.25) mg/dL Glucose (74-99) mg/dL POC Glucose (mg/dL) 116 H 110 H 109 H (75-99) mg/dL Calcium (8.4-10.2) mg/dL Magnesium (1.6-2.3) mg/dL Total Protein (6.3-8.2) g/dL Albumin (3.5-5.0) g/dL Arterial Blood Glucose (75-99) mg/dL Crossmatch 03/15/19 03/15/19 03/15/19 Range/Units 04:00 04:00 04:13 RBC 2.99 L (4.30-5.90) m/uL Hgb 9.4 L (13.0-17.5) gm/dL Hct 27.2 L (39.0-53.0) % Neutrophils # (1.3-7.7) k/uL Lymphocytes # (1.0-4.8) k/uL PT (9.0-12.0) sec INR (<1.2) ABG pH (7.35-7.45) ABG pCO2 (35-45) mmHg ABG pO2 (83-108) mmHg ABG HCO3 (21-25) mmol/L ABG Total CO2 (19-24) mmol/L ABG O2 Saturation (94-97) % ABG Hematocrit (34.0-46.0) % ABG Glucose (75-99) mg/dL Hemoglobin (13.0-17.5) gm/dL Chloride (98-107) mmol/L Creatinine 0.43 L (0.66-1.25) mg/dL Glucose 112 H (74-99) mg/dL POC Glucose (mg/dL) 125 H (75-99) mg/dL Calcium (8.4-10.2) mg/dL Magnesium (1.6-2.3) mg/dL Total Protein 5.2 L (6.3-8.2) g/dL Albumin 3.3 L (3.5-5.0) g/dL Arterial Blood Glucose (75-99) mg/dL Crossmatch 03/15/19 03/15/19 03/15/19 Range/Units 07:01 07:29 08:05 RBC (4.30-5.90) m/uL Hgb (13.0-17.5) gm/dL Hct (39.0-53.0) % Neutrophils # (1.3-7.7) k/uL Lymphocytes # (1.0-4.8) k/uL PT (9.0-12.0) sec INR (<1.2) ABG pH (7.35-7.45) ABG pCO2 (35-45) mmHg ABG pO2 (83-108) mmHg ABG HCO3 (21-25) mmol/L ABG Total CO2 (19-24) mmol/L ABG O2 Saturation (94-97) % ABG Hematocrit (34.0-46.0) % ABG Glucose (75-99) mg/dL Hemoglobin (13.0-17.5) gm/dL Chloride (98-107) mmol/L Creatinine (0.66-1.25) mg/dL Glucose (74-99) mg/dL POC Glucose (mg/dL) 123 H 229 H 168 H (75-99) mg/dL Calcium (8.4-10.2) mg/dL Magnesium (1.6-2.3) mg/dL Total Protein (6.3-8.2) g/dL Albumin (3.5-5.0) g/dL Arterial Blood Glucose (75-99) mg/dL Crossmatch 03/15/19 03/15/19 03/15/19 Range/Units 09:07 11:05 11:48 RBC (4.30-5.90) m/uL Hgb (13.0-17.5) gm/dL Hct (39.0-53.0) % Neutrophils # (1.3-7.7) k/uL Lymphocytes # (1.0-4.8) k/uL PT (9.0-12.0) sec INR (<1.2) ABG pH (7.35-7.45) ABG pCO2 (35-45) mmHg ABG pO2 (83-108) mmHg ABG HCO3 (21-25) mmol/L ABG Total CO2 (19-24) mmol/L ABG O2 Saturation (94-97) % ABG Hematocrit (34.0-46.0) % ABG Glucose (75-99) mg/dL Hemoglobin (13.0-17.5) gm/dL Chloride (98-107) mmol/L Creatinine (0.66-1.25) mg/dL Glucose (74-99) mg/dL POC Glucose (mg/dL) 130 H 109 H 101 H (75-99) mg/dL Calcium (8.4-10.2) mg/dL Magnesium (1.6-2.3) mg/dL Total Protein (6.3-8.2) g/dL Albumin (3.5-5.0) g/dL Arterial Blood Glucose (75-99) mg/dL Crossmatch Assessment and Plan Assessment: Impression: 1: Off pump CABG 5 with sequential BUSH to first diagonal and LAD, left radial artery graft to obtuse marginal, sequential saphenous vein graft to posterior la teral and posterior descending branches of the right coronary artery. Endovascular vein harvest, endovascular radial harvest, RAMY by anesthesia, postoperative day #1 2: History of cervical stenosis requiring cervical fusion. 3: History of mild to moderate COPD, FEV1 is in the range of 69%. New 4: Mild LV dysfunction based on recent echocardiogram. Recommendation: Continue incentive spirometry. Continue aspirin statins and Plavix and beta blockers. Continue GI and DVT prophylaxis. Continue pain control. Early ambulation. Discontinue any unnecessary catheters or lines. Continue bronchodilators. Increase activity as tolerated. We'll continue to follow. Time with Patient: Less than 30
--- NOTE | 2019-03-15 13:28 | P.CONS ---
History of Present Illness - Reason for Consult Consult date: 03/15/19 Medical management, CABG 5 vessel disease Requesting physician: Kike Meyers - Chief Complaint 5 vessel bypass surgery - History of Present Illness This is a pleasant 58-year-old gentleman patient of Dr. Lozada. He has underlying history of COPD, hyperlipidemia, hypertension, and current tobacco use. Patient denies any history of CVA, no prior diabetes mellitus, He u nderwent CABG 5 vessel bypass on 03/14/2019, by Dr. Meyers, requiring sequential BUSH graft to the LAD, and first diagonal branch, left radial artery to the obtuse marginal branch of circumflex, saphenous vein graft to the PDA and PLV branch of RCA,. He is transferred fascial echo preop shows EF of 45-50%, follows with Dr. Obrien cardiology with a recent cardiac cath revealing calcified triple-vessel disease. Patient does not have any pulmonary doctor outside of the hospital, patient patient denies any Leg claudication, no previous CVA or stroke. He was extubated on 03/15/2019, few hours after CABG, and by the time he was evaluated by critical care medicine, he was already alert awake, and on CPAP machine, and was fully extubated. Currently on nasal cannula for O2 supplementation Review of Systems Constitutional: Reports as per HPI, Denies anorexia, Denies chills, Denies chronic headaches, Denies chronic pain, Denies daytime sleepiness, Denies fatigue, Denies fever, Denies lethargy, Denies malaise, Denies night sweats, Denies poor appetite, Denies sweats, Denies weakness, Denies weight gain, Denies weight loss Ears, nose, mouth and throat: Reports as per HPI, Reports voice changes (Since cervical spine surgery in December 2018) Cardiovascular: Reports as per HPI Respiratory: Reports as per HPI Gastrointestinal: Reports as per HPI Genitourinary: Reports as per HPI, Denies decreased libido, Denies difficulties fathering child, Denies discharge, Denies dysuria, Denies erectile dysfunction, Denies flank pain, Denies genital pain, Denies genital sores, Denies hematuria, Denies impotence, Denies incontinence, Denies kidney stones, Denies nocturia, Denies polyuria, Denies testicular lump, Denies testicular pain, Denies urinary frequency, Denies urinary hesitancy, Denies urinary retention Musculoskeletal: Reports as per HPI, Denies arm numbness/tingling, Denies atrophy, Denies fractures, Denies frequent falls, Denies gait dysfunction, Denies hot joints, Denies leg numbness/tingling, Denies limitation of motion, Denies loss of height, Denies low back pain, Denies morning stiffness, Denies muscle cramps, Denies muscle weakness, Denies myalgias, Denies neck pain, Denies neck stiffness, Denies prior amputations, Denies redness of joints, Denies shooting arm pain, Denies shooting leg pain Integumentary: Reports as per HPI, Denies acne, Denies boils, Denies brittle nails, Denies change in hair/nails, Denies color changes, Denies darkening of skin, Denies depigmentation, Denies dryness, Denies foot/leg ulcers, Denies growths, Denies hirsutism, Denies lesions, Denies onychomycosis, Denies pruritus, Denies rash, Denies sores, Denies striae, Denies unusual bruising, Denies wounds Neurological: Reports as per HPI, Denies aphasia, Denies ataxia, Denies balance difficulties, Denies burning pain, Denies change in mentation, Denies change in smell/taste, Denies change in speech, Denies confusion, Denies convulsions, Denies double vision, Denies gait dysfunction, Denies head injury, Denies headaches, Denies hearing difficulties, Denies lack of coordination, Denies loss of vision, Denies memory loss, Denies migraines, Denies motor disturbance, Denies numbness, Denies paralysis, Denies paresthesias, Denies seizures, Denies sensory deficit, Denies spasticity, Denies syncope, Denies tic, Denies tingling, Denies transient paralysis, Denies tremors, Denies vertigo, Denies weakness, Denies visual changes Psychiatric: Reports as per HPI Endocrine: Reports as per HPI Hematologic/Lymphatic: Reports as per HPI, Denies easy bleeding, Denies easy bruising, Denies lymphadenopathy, Denies lymphedema, Denies thrombophilia Allergic/Immunologic: Reports as per HPI, Denies allergic rhinitis, Denies anaphylaxis, Denies angioedema, Denies gluten intolerance, Denies persistent infections, Denies seasonal allergies, Denies urticaria, Denies wheezing Past Medical History Past Medical History: No Reported History Additional Past Medical History / Comment(s): head injury History of Any Multi-Drug Resistant Organisms: None Reported Past Surgical History: Orthopedic Surgery Additional Past Surgical History / Comment(s): cervical spinal fusion Past Anesthesia/Blood Transfusion Reactions: No Reported Reaction Smoking Status: Former smoker Past Drug Use History: None Reported - Past Family History Mother Family Medical History: No Reported History, Cancer (Throat cancer) Father Family Medical History: Unable to Obtain Brother(s) Family Medical History: No Reported History Sister(s) Family Medical History: No Reported History Daughter(s) Family Medical History: Unable to Obtain (Unknown history for daughters, not in contact) Son(s) Family Medical History: Unable to Obtain (Unknown history, NO CONTACT) Medications and Allergies Home Medications Medication Instructions Recorded Confirmed Type Aspirin 81 mg PO DAILY 03/08/19 03/14/19 History Atorvastatin [Lipitor] 40 mg PO HS 03/08/19 03/14/19 History HYDROcodone/APAP 10-325MG [Ebro 1 tab PO Q6HR PRN 03/08/19 03/14/19 History 10-325] Isosorbide Mononitrate [Isosorbide 15 mg PO DAILY 03/08/19 03/14/19 History Mononitrate ER] Metoprolol Tartrate [Lopressor] 12.5 mg PO BID 03/08/19 03/14/19 History Mupirocin [Mupirocin 2%] 1 applic NASAL BID #1 tube 03/08/19 03/14/19 Rx Allergies Allergy/AdvReac Type Severity Reaction Status Date / Time No Known Allergies Allergy Verified 03/14/19 05:57 Physical Exam Vitals: Vital Signs Temp Pulse Pulse Resp BP Pulse Ox 03/15/19 12:39 90 03/15/19 12:29 86 03/15/19 12:00 98 F 84 14 105/71 94 L 03/15/19 11:30 83 14 110/81 94 L 03/15/19 11:00 100 13 94/59 96 03/15/19 10:30 85 12 94/59 92 L 03/15/19 10:00 81 17 88/60 94 L 03/15/19 09:30 81 16 94 L 03/15/19 09:00 87 12 92 L 03/15/19 08:30 89 21 96 03/15/19 08:21 96 03/15/19 08:10 86 96 03/15/19 08:00 98.9 F 92 73 12 90/62 94 L 03/15/19 07:30 87 21 94 L 03/15/19 07:00 89 16 95/61 93 L 03/15/19 06:30 100.4 F H 92 20 93 L 03/15/19 06:00 81 12 98 03/15/19 05:30 82 18 97 03/15/19 05:00 75 20 97 03/15/19 04:30 78 11 L 99 03/15/19 04:00 99.8 F H 81 20 97 03/15/19 03:30 99.8 F H 75 15 98 03/15/19 03:00 69 11 L 97 03/15/19 02:30 75 17 98 03/15/19 02:00 75 18 98 03/15/19 01:30 76 14 98 03/15/19 01:00 80 16 98 03/15/19 00:30 81 20 97 03/15/19 00:00 100.1 F H 82 18 96 03/14/19 23:30 82 18 98 03/14/19 23:16 83 15 98 03/14/19 23:00 84 20 97 03/14/19 22:30 82 12 99 03/14/19 22:00 82 18 98 03/14/19 21:30 82 13 99 03/14/19 21:00 84 22 98 03/14/19 20:30 82 15 98 03/14/19 20:01 93 03/14/19 20:00 99.3 F 96 20 96 03/14/19 19:51 81 03/14/19 19:00 85 18 97 03/14/19 18:30 86 10 L 97 03/14/19 18:15 87 16 87/56 96 03/14/19 18:00 89 14 87/56 95 03/14/19 17:45 88 28 H 97 03/14/19 17:30 89 14 97 03/14/19 17:15 85 15 98 03/14/19 17:00 81 12 96 03/14/19 16:45 86 21 96 01/15/20 16:36 100 03/14/19 16:30 93 21 99 03/14/19 16:15 85 17 99 03/14/19 16:00 89 22 95 03/14/19 15:45 85 11 L 99 03/14/19 15:30 84 14 94 L 03/14/19 15:15 74 20 96 03/14/19 15:00 74 12 97 03/14/19 14:45 7 L 100 03/14/19 14:30 76 13 99 03/14/19 14:20 73 12 100 03/14/19 14:10 94.5 F L 77 13 100 Intake and Output 03/14/19 03/15/19 03/15/19 22:59 06:59 14:59 Intake Total 0088.240 4795.0 852 Output Total 1345 1390 455 Balance 47.518 -236.0 397 Intake: IV 1391.5 954.0 852 0.9 Pressure Bags 72 72 102 Albumin Human 5% 250 ml 500 250 250 In Empty Bag 1 bag @ 250 mls/hr IVPB Q1HR PRN Rx#: [id number] CO/CI 90 130 20 Cardizem 15 40 10 Lactated Ringers 1,000 ml 360 400 470 @ 20 mls/hr IV .Q24H GERMAINE Rx#:[id number] Magnesium Sulfate-D5w Pmx 300 1 gm In Dextrose/Water 1 100ml.bag @ 100 mls/hr IVPB Q1H GERMAINE Rx#: [id number] Nitroglycerine 4.5 12.0 0 ceFAZolin 2 gm In Sodium 50 50 Chloride 0.9% 50 ml @ 100 mls/hr IVPB Q8HR GERMAINE Rx# :[id number] Intake, IV Titration 1.018 100 Amount ACETAMINOPHEN IV (For NPO 100 ) 1,000 mg In Empty Bag 1 bag @ 400 mls/hr IVPB Q6HR GERMAINE Rx#:[id number] Insulin Regular 100 unit 1.018 In Sodium Chloride 0.9% 100 ml @ Per Protocol IV .Q0M GERMAINE Rx#:[id number] Oral 100 Output: Chest Tube Drainage 645 695 10 Chest Tube Bilateral 285 430 10 Chest Tube Mediastinal 360 265 0 Drainage 150 Bilateral Medial Chest 90 Medial Chest 60 Urine 700 695 295 Other: Voiding Method Indwelling Catheter Indwelling Catheter Indwelling Catheter Weight 53.5 kg 53.5 kg ABP, PAP, CO, CI - Last 8 Hours Arterial Blood Pressure 113/57 Arterial Blood Pressure 114/57 Arterial Blood Pressure 133/81 Arterial Blood Pressure 110/55 Arterial Blood Pressure 91/56 Arterial Blood Pressure 92/54 Arterial Blood Pressure 86/44 Arterial Blood Pressure 132/56 Arterial Blood Pressure 142/60 Arterial Blood Pressure 122/46 Arterial Blood Pressure 111/57 Arterial Blood Pressure 131/65 Arterial Blood Pressure 125/58 Pulmonary Artery Pressure 20/7 Pulmonary Artery Pressure 13/5 Pulmonary Artery Pressure 17/4 Pulmonary Artery Pressure 35/14 Pulmonary Artery Pressure 27/12 Cardiac Output 7.4 Cardiac Index 4 Cardiac Index 4.2 - Constitutional General appearance: cooperative, no acute distress - EENT Eyes: EOMI, PERRLA, dentition normal ENT: NA/AT, normal oropharynx (Hoarse voice) - Neck Neck: no lymphadenopathy, no normal ROM, no other, no rigidity, no stridor, no thyromegaly - Respiratory Respiratory: bilateral: CTA, negative: diminished, dullness, rales, rhonchi, wheezing - Cardiovascular Rhythm: regular Heart sounds: normal: S1, S2 Abnormal Heart Sounds: no systolic murmur, no diastolic murmur, no rub, no S3 Gallop, no S4 Gallop, no click, no other - Gastrointestinal General gastrointestinal: normal bowel sounds, soft - Integumentary Integumentary: decreased turgor, normal - Neurologic Neurologic: CNII-XII intact - Musculoskeletal Musculoskeletal: gait normal, strength equal bilaterally - Psychiatric Psychiatric: A&O x's 3, appropriate affect Results CBC & Chem 7: 03/15/19 04:00 03/15/19 04:00 Labs: Abnormal Lab Results - Last 24 Hours (Table) 03/08/19 03/14/19 03/14/19 Range/Units 08:57 09:12 10:32 RBC (4.30-5.90) m/uL Hgb (13.0-17.5) gm/dL Hct (39.0-53.0) % Neutrophils # (1.3-7.7) k/uL Lymphocytes # (1.0-4.8) k/uL PT (9.0-12.0) sec INR (<1.2) ABG pH 7.27 L (7.35-7.45) ABG pCO2 46 H 59 H (35-45) mmHg ABG pO2 223 H 307 H (83-108) mmHg ABG HCO3 27 H 27 H (21-25) mmol/L ABG Total CO2 29 H 29 H (19-24) mmol/L ABG O2 Saturation 99.9 H 100.0 H (94-97) % ABG Hematocrit 33 L (34.0-46.0) % ABG Glucose 110 H 151 H (75-99) mg/dL Hemoglobin 11.5 L 10.8 L (13.0-17.5) gm/dL Chloride (98-107) mmol/L Creatinine (0.66-1.25) mg/dL Glucose (74-99) mg/dL POC Glucose (mg/dL) (75-99) mg/dL Calcium (8.4-10.2) mg/dL Magnesium (1.6-2.3) mg/dL Total Protein (6.3-8.2) g/dL Albumin (3.5-5.0) g/dL Arterial Blood Glucose 110 H 151 H (75-99) mg/dL Crossmatch See Detail 03/14/19 03/14/19 03/14/19 Range/Units 11:07 11:32 11:55 RBC (4.30-5.90) m/uL Hgb (13.0-17.5) gm/dL Hct (39.0-53.0) % Neutrophils # (1.3-7.7) k/uL Lymphocytes # (1.0-4.8) k/uL PT (9.0-12.0) sec INR (<1.2) ABG pH 7.33 L (7.35-7.45) ABG pCO2 48 H 46 H 49 H (35-45) mmHg ABG pO2 293 H 274 H 234 H (83-108) mmHg ABG HCO3 26 H 26 H 26 H (21-25) mmol/L ABG Total CO2 28 H 27 H 27 H (19-24) mmol/L ABG O2 Saturation 99.9 H 99.8 H 99.8 H (94-97) % ABG Hematocrit 31 L 30 L 30 L (34.0-46.0) % ABG Glucose 142 H 133 H 130 H (75-99) mg/dL Hemoglobin 10.0 L 9.8 L 9.9 L (13.0-17.5) gm/dL Chloride (98-107) mmol/L Creatinine (0.66-1.25) mg/dL Glucose (74-99) mg/dL POC Glucose (mg/dL) (75-99) mg/dL Calcium (8.4-10.2) mg/dL Magnesium (1.6-2.3) mg/dL Total Protein (6.3-8.2) g/dL Albumin (3.5-5.0) g/dL Arterial Blood Glucose 142 H 133 H 130 H (75-99) mg/dL Crossmatch 03/14/19 03/14/19 03/14/19 Range/Units 12:25 13:08 14:13 RBC (4.30-5.90) m/uL Hgb (13.0-17.5) gm/dL Hct (39.0-53.0) % Neutrophils # (1.3-7.7) k/uL Lymphocytes # (1.0-4.8) k/uL PT (9.0-12.0) sec INR (<1.2) ABG pH 7.30 L 7.32 L (7.35-7.45) ABG pCO2 50 H 47 H (35-45) mmHg ABG pO2 291 H 190 H (83-108) mmHg ABG HCO3 (21-25) mmol/L ABG Total CO2 26 H 26 H (19-24) mmol/L ABG O2 Saturation 99.8 H 99.4 H (94-97) % ABG Hematocrit 29 L 27 L (34.0-46.0) % ABG Glucose 124 H 115 H (75-99) mg/dL Hemoglobin 9.5 L 8.9 L (13.0-17.5) gm/dL Chloride (98-107) mmol/L Creatinine (0.66-1.25) mg/dL Glucose (74-99) mg/dL POC Glucose (mg/dL) 115 H (75-99) mg/dL Calcium (8.4-10.2) mg/dL Magnesium (1.6-2.3) mg/dL Total Protein (6.3-8.2) g/dL Albumin (3.5-5.0) g/dL Arterial Blood Glucose 124 H 115 H (75-99) mg/dL Crossmatch 03/14/19 03/14/19 03/14/19 Range/Units 14:15 14:15 14:15 RBC 2.94 L (4.30-5.90) m/uL Hgb 9.2 L D (13.0-17.5) gm/dL Hct 27.0 L (39.0-53.0) % Neutrophils # 8.6 H (1.3-7.7) k/uL Lymphocytes # (1.0-4.8) k/uL PT 12.3 H (9.0-12.0) sec INR 1.2 H (<1.2) ABG pH (7.35-7.45) ABG pCO2 (35-45) mmHg ABG pO2 (83-108) mmHg ABG HCO3 (21-25) mmol/L ABG Total CO2 (19-24) mmol/L ABG O2 Saturation (94-97) % ABG Hematocrit (34.0-46.0) % ABG Glucose (75-99) mg/dL Hemoglobin (13.0-17.5) gm/dL Chloride 110 H (98-107) mmol/L Creatinine 0.45 L (0.66-1.25) mg/dL Glucose 104 H (74-99) mg/dL POC Glucose (mg/dL) (75-99) mg/dL Calcium 8.0 L (8.4-10.2) mg/dL Magnesium 1.4 L (1.6-2.3) mg/dL Total Protein 5.6 L (6.3-8.2) g/dL Albumin (3.5-5.0) g/dL Arterial Blood Glucose (75-99) mg/dL Crossmatch 03/14/19 03/14/19 03/14/19 Range/Units 14:23 15:07 16:22 RBC (4.30-5.90) m/uL Hgb (13.0-17.5) gm/dL Hct (39.0-53.0) % Neutrophils # (1.3-7.7) k/uL Lymphocytes # (1.0-4.8) k/uL PT (9.0-12.0) sec INR (<1.2) ABG pH 7.29 L (7.35-7.45) ABG pCO2 53 H (35-45) mmHg ABG pO2 >400 H (83-108) mmHg ABG HCO3 (21-25) mmol/L ABG Total CO2 27 H (19-24) mmol/L ABG O2 Saturation 99.8 H (94-97) % ABG Hematocrit (34.0-46.0) % ABG Glucose (75-99) mg/dL Hemoglobin (13.0-17.5) gm/dL Chloride (98-107) mmol/L Creatinine (0.66-1.25) mg/dL Glucose (74-99) mg/dL POC Glucose (mg/dL) 110 H 115 H (75-99) mg/dL Calcium (8.4-10.2) mg/dL Magnesium (1.6-2.3) mg/dL Total Protein (6.3-8.2) g/dL Albumin (3.5-5.0) g/dL Arterial Blood Glucose (75-99) mg/dL Crossmatch 03/14/19 03/14/19 03/14/19 Range/Units 16:24 17:56 18:10 RBC 3.06 L (4.30-5.90) m/uL Hgb 9.5 L (13.0-17.5) gm/dL Hct 28.0 L (39.0-53.0) % Neutrophils # 8.0 H (1.3-7.7) k/uL Lymphocytes # 0.7 L (1.0-4.8) k/uL PT (9.0-12.0) sec INR (<1.2) ABG pH 7.34 L (7.35-7.45) ABG pCO2 46 H (35-45) mmHg ABG pO2 (83-108) mmHg ABG HCO3 (21-25) mmol/L ABG Total CO2 26 H (19-24) mmol/L ABG O2 Saturation 97.7 H (94-97) % ABG Hematocrit (34.0-46.0) % ABG Glucose (75-99) mg/dL Hemoglobin (13.0-17.5) gm/dL Chloride (98-107) mmol/L Creatinine (0.66-1.25) mg/dL Glucose (74-99) mg/dL POC Glucose (mg/dL) 122 H (75-99) mg/dL Calcium (8.4-10.2) mg/dL Magnesium (1.6-2.3) mg/dL Total Protein (6.3-8.2) g/dL Albumin (3.5-5.0) g/dL Arterial Blood Glucose (75-99) mg/dL Crossmatch 03/14/19 03/14/19 03/14/19 Range/Units 19:19 20:01 20:35 RBC 2.99 L (4.30-5.90) m/uL Hgb 9.6 L (13.0-17.5) gm/dL Hct 27.4 L (39.0-53.0) % Neutrophils # (1.3-7.7) k/uL Lymphocytes # 0.8 L (1.0-4.8) k/uL PT (9.0-12.0) sec INR (<1.2) ABG pH (7.35-7.45) ABG pCO2 (35-45) mmHg ABG pO2 (83-108) mmHg ABG HCO3 (21-25) mmol/L ABG Total CO2 (19-24) mmol/L ABG O2 Saturation (94-97) % ABG Hematocrit (34.0-46.0) % ABG Glucose (75-99) mg/dL Hemoglobin (13.0-17.5) gm/dL Chloride (98-107) mmol/L Creatinine (0.66-1.25) mg/dL Glucose (74-99) mg/dL POC Glucose (mg/dL) 118 H 133 H (75-99) mg/dL Calcium (8.4-10.2) mg/dL Magnesium (1.6-2.3) mg/dL Total Protein (6.3-8.2) g/dL Albumin (3.5-5.0) g/dL Arterial Blood Glucose (75-99) mg/dL Crossmatch 03/14/19 03/14/19 03/15/19 Range/Units 22:06 23:07 00:32 RBC (4.30-5.90) m/uL Hgb (13.0-17.5) gm/dL Hct (39.0-53.0) % Neutrophils # (1.3-7.7) k/uL Lymphocytes # (1.0-4.8) k/uL PT (9.0-12.0) sec INR (<1.2) ABG pH (7.35-7.45) ABG pCO2 (35-45) mmHg ABG pO2 (83-108) mmHg ABG HCO3 (21-25) mmol/L ABG Total CO2 (19-24) mmol/L ABG O2 Saturation (94-97) % ABG Hematocrit (34.0-46.0) % ABG Glucose (75-99) mg/dL Hemoglobin (13.0-17.5) gm/dL Chloride (98-107) mmol/L Creatinine (0.66-1.25) mg/dL Glucose (74-99) mg/dL POC Glucose (mg/dL) 107 H 108 H 102 H (75-99) mg/dL Calcium (8.4-10.2) mg/dL Magnesium (1.6-2.3) mg/dL Total Protein (6.3-8.2) g/dL Albumin (3.5-5.0) g/dL Arterial Blood Glucose (75-99) mg/dL Crossmatch 03/15/19 03/15/19 03/15/19 Range/Units 01:06 02:10 03:11 RBC (4.30-5.90) m/uL Hgb (13.0-17.5) gm/dL Hct (39.0-53.0) % Neutrophils # (1.3-7.7) k/uL Lymphocytes # (1.0-4.8) k/uL PT (9.0-12.0) sec INR (<1.2) ABG pH (7.35-7.45) ABG pCO2 (35-45) mmHg ABG pO2 (83-108) mmHg ABG HCO3 (21-25) mmol/L ABG Total CO2 (19-24) mmol/L ABG O2 Saturation (94-97) % ABG Hematocrit (34.0-46.0) % ABG Glucose (75-99) mg/dL Hemoglobin (13.0-17.5) gm/dL Chloride (98-107) mmol/L Creatinine (0.66-1.25) mg/dL Glucose (74-99) mg/dL POC Glucose (mg/dL) 116 H 110 H 109 H (75-99) mg/dL Calcium (8.4-10.2) mg/dL Magnesium (1.6-2.3) mg/dL Total Protein (6.3-8.2) g/dL Albumin (3.5-5.0) g/dL Arterial Blood Glucose (75-99) mg/dL Crossmatch 03/15/19 03/15/19 03/15/19 Range/Units 04:00 04:00 04:13 RBC 2.99 L (4.30-5.90) m/uL Hgb 9.4 L (13.0-17.5) gm/dL Hct 27.2 L (39.0-53.0) % Neutrophils # (1.3-7.7) k/uL Lymphocytes # (1.0-4.8) k/uL PT (9.0-12.0) sec INR (<1.2) ABG pH (7.35-7.45) ABG pCO2 (35-45) mmHg ABG pO2 (83-108) mmHg ABG HCO3 (21-25) mmol/L ABG Total CO2 (19-24) mmol/L ABG O2 Saturation (94-97) % ABG Hematocrit (34.0-46.0) % ABG Glucose (75-99) mg/dL Hemoglobin (13.0-17.5) gm/dL Chloride (98-107) mmol/L Creatinine 0.43 L (0.66-1.25) mg/dL Glucose 112 H (74-99) mg/dL POC Glucose (mg/dL) 125 H (75-99) mg/dL Calcium (8.4-10.2) mg/dL Magnesium (1.6-2.3) mg/dL Total Protein 5.2 L (6.3-8.2) g/dL Albumin 3.3 L (3.5-5.0) g/dL Arterial Blood Glucose (75-99) mg/dL Crossmatch 03/15/19 03/15/19 03/15/19 Range/Units 07:01 07:29 08:05 RBC (4.30-5.90) m/uL Hgb (13.0-17.5) gm/dL Hct (39.0-53.0) % Neutrophils # (1.3-7.7) k/uL Lymphocytes # (1.0-4.8) k/uL PT (9.0-12.0) sec INR (<1.2) ABG pH (7.35-7.45) ABG pCO2 (35-45) mmHg ABG pO2 (83-108) mmHg ABG HCO3 (21-25) mmol/L ABG Total CO2 (19-24) mmol/L ABG O2 Saturation (94-97) % ABG Hematocrit (34.0-46.0) % ABG Glucose (75-99) mg/dL Hemoglobin (13.0-17.5) gm/dL Chloride (98-107) mmol/L Creatinine (0.66-1.25) mg/dL Glucose (74-99) mg/dL POC Glucose (mg/dL) 123 H 229 H 168 H (75-99) mg/dL Calcium (8.4-10.2) mg/dL Magnesium (1.6-2.3) mg/dL Total Protein (6.3-8.2) g/dL Albumin (3.5-5.0) g/dL Arterial Blood Glucose (75-99) mg/dL Crossmatch 03/15/19 03/15/19 03/15/19 Range/Units 09:07 11:05 11:48 RBC (4.30-5.90) m/uL Hgb (13.0-17.5) gm/dL Hct (39.0-53.0) % Neutrophils # (1.3-7.7) k/uL Lymphocytes # (1.0-4.8) k/uL PT (9.0-12.0) sec INR (<1.2) ABG pH (7.35-7.45) ABG pCO2 (35-45) mmHg ABG pO2 (83-108) mmHg ABG HCO3 (21-25) mmol/L ABG Total CO2 (19-24) mmol/L ABG O2 Saturation (94-97) % ABG Hematocrit (34.0-46.0) % ABG Glucose (75-99) mg/dL Hemoglobin (13.0-17.5) gm/dL Chloride (98-107) mmol/L Creatinine (0.66-1.25) mg/dL Glucose (74-99) mg/dL POC Glucose (mg/dL) 130 H 109 H 101 H (75-99) mg/dL Calcium (8.4-10.2) mg/dL Magnesium (1.6-2.3) mg/dL Total Protein (6.3-8.2) g/dL Albumin (3.5-5.0) g/dL Arterial Blood Glucose (75-99) mg/dL Crossmatch Laboratory Results WBC 7.4 k/uL (3.8-10.6) 03/15/19 04:00 RBC 2.99 m/uL (4.30-5.90) L 03/15/19 04:00 Hgb 9.4 gm/dL (13.0-17.5) L 03/15/19 04:00 Hct 27.2 % (39.0-53.0) L 03/15/19 04:00 MCV 90.9 fL (80.0-100.0) 03/15/19 04:00 MCH 31.5 pg (25.0-35.0) 03/15/19 04:00 MCHC 34.6 g/dL (31.0-37.0) 03/15/19 04:00 RDW 13.1 % (11.5-15.5) 03/15/19 04:00 Plt Count 176 k/uL (150-450) 03/15/19 04:00 Neutrophils % 77 % 03/15/19 04:00 Lymphocytes % 17 % 03/15/19 04:00 Monocytes % 5 % 03/15/19 04:00 Eosinophils % 1 % 03/15/19 04:00 Basophils % 0 % 03/15/19 04:00 Neutrophils # 5.7 k/uL (1.3-7.7) 03/15/19 04:00 Lymphocytes # 1.2 k/uL (1.0-4.8) 03/15/19 04:00 Monocytes # 0.3 k/uL (0-1.0) 03/15/19 04:00 Eosinophils # 0.1 k/uL (0-0.7) 03/15/19 04:00 Basophils # 0.0 k/uL (0-0.2) 03/15/19 04:00 PT 12.3 sec (9.0-12.0) H 03/14/19 14:15 INR 1.2 (<1.2) H 03/14/19 14:15 APTT 29.7 sec (22.0-30.0) 03/14/19 14:15 Sample Site a-line 03/14/19 16:24 ABG pH 7.34 (7.35-7.45) L 03/14/19 16:24 ABG pCO2 46 mmHg (35-45) H 03/14/19 16:24 ABG pO2 103 mmHg (83-108) 03/14/19 16:24 ABG HCO3 25 mmol/L (21-25) 03/14/19 16:24 ABG Total CO2 26 mmol/L (19-24) H 03/14/19 16:24 ABG O2 Saturation 97.7 % (94-97) H 03/14/19 16:24 ABG Base Excess -0.9 mmol/L 03/14/19 16:24 ABG Hematocrit 27 % (34.0-46.0) L 03/14/19 13:08 Aly Test Yes 03/14/19 16:24 ABG Sodium 142 mmol/L (135-146) 03/14/19 13:08 ABG Potassium 3.4 mmol/L (3.4-4.5) 03/14/19 13:08 ABG Ionized Calcium 4.6 mg/dL (4.5-5.3) 03/14/19 13:08 ABG Glucose 115 mg/dL (75-99) H 03/14/19 13:08 ABG Lactic Acid 1.2 mmol/L (0.5-1.6) 03/14/19 13:08 Hemoglobin 8.9 gm/dL (13.0-17.5) L 03/14/19 13:08 FiO2 40 % 03/14/19 16:24 Sodium 137 mmol/L (137-145) 03/15/19 04:00 Potassium 3.9 mmol/L (3.5-5.1) 03/15/19 04:00 Chloride 107 mmol/L (98-107) 03/15/19 04:00 Carbon Dioxide 25 mmol/L (22-30) 03/15/19 04:00 Anion Gap 5 mmol/L 03/15/19 04:00 BUN 9 mg/dL (9-20) 03/15/19 04:00 Creatinine 0.43 mg/dL (0.66-1.25) L 03/15/19 04:00 Est GFR (CKD-EPI)AfAm >90 (>60 ml/min/1.73 sqM) 03/15/19 04:00 Est GFR (CKD-EPI)NonAf >90 (>60 ml/min/1.73 sqM) 03/15/19 04:00 Glucose 112 mg/dL (74-99) H 03/15/19 04:00 POC Glucose (mg/dL) 101 mg/dL (75-99) H 03/15/19 11:48 POC Glu [employer] Worker ID Vicky Erickson 03/15/19 11:48 Calcium 8.6 mg/dL (8.4-10.2) 03/15/19 04:00 Ionized Calcium Ashu 5.2 mg/dL (4.5-5.3) 03/15/19 04:00 Magnesium 2.0 mg/dL (1.6-2.3) 03/15/19 04:00 Total Bilirubin 0.7 mg/dL (0.2-1.3) 03/15/19 04:00 AST 25 U/L (17-59) 03/15/19 04:00 ALT 8 U/L (4-49) 03/15/19 04:00 Alkaline Phosphatase 41 U/L (38-126) 03/15/19 04:00 Total Protein 5.2 g/dL (6.3-8.2) L 03/15/19 04:00 Albumin 3.3 g/dL (3.5-5.0) L 03/15/19 04:00 Arterial Blood Potassium 3.4 mmol/L (3.4-4.5) 03/14/19 13:08 Arterial Blood Glucose 115 mg/dL (75-99) H 03/14/19 13:08 Blood Type B Negative 03/08/19 08:57 Blood Type Confirm B Negative 03/14/19 06:20 Blood Type Recheck No Previous Record 03/08/19 08:57 Bld Type Recheck Status CABO Indicated 03/08/19 08:57 Antibody Screen NEGATIVE 03/08/19 08:57 Crossmatch See Detail 03/08/19 08:57 Transfuse Platelets 03/14/19 03/08/19 08:57 Spec Expiration Date 03/16/2019 - 23503/08/19 08:57 Assessment and Plan Plan: 1. CAD with 3 vessel disease requiring CABG, POD #1 on March 14 2019, involving 5 vessel bypass graft. He had 5 vessel bypass graft, involving BUSH to the LAD and first diagonal, radial artery from the left to the obtuse marginal branch of circumflex, saphenous vein to the PDA and PLV of the RCA, preop RAMY shows EF of 45-50%, aspirin, Lipitor, Plavix, on amiodarone when necessary, diltiazem 30 every 6 hours scheduled, 2. COPD, without any current exacerbation, patient is on prophylactic nebulizers, has an FEV1 of 69%, O2 supplementation next 3. Current tobacco use, patient's counseled, forced permanent smoking cessation program 4. Recent cervical stenosis surgery requiring cervical fusion, November 2018 no current radicular symptoms 5. Prior history of syncope, etiology not lunch, no carotid Dopplers available for review in our facility 6. Prediabetes with episodes of Hyperglycemia without a diagnosis of diabetes mellitus, hemoglobin A1c was 6.1, Accu-Cheks before meals and at bedtime with NovoLog scale 7. Hyperlipidemia, on statins, recent LDL was 100 8. Current chronic hoarse voice since cervical surgery, continue to monitor, no current symptoms of pain 9. DVT prophylaxis iv heparin scd 7. GI prophylaxis protonix
--- NOTE | 2019-03-15 16:17 | P.CONS ---
History of Present Illness - Chief Complaint Cardiac debility - History of Present Illness I had the opportunity to see patient for inpatient rehab consultation with regard to cardiac debility. He was admitted to [facility] March 14 with coronary disease. Seen by Dr. Meyers did undergo 5 vessel CABG date of admission. Seen by Dr. Tenorio for ICU management as well as Dr. Painter. Chest x-rays followed demonstrate congestion and atelectasis. OT reports maximal assistance for lower dressing, bathing, toileting and moderate assistance for toilet transfer. Fatigues quickly. PT prescribed. Previous functional history as elicited from patient: 58-year-old right-handed white male who is single lives in a trailer home with sister and [id number]. Patient is retired/disabled. Sister does cooking, laundry, driving. [id number] works sometimes. Patient independent with standing shower and g ait without device. Dr. Lozada is regular doctor. Patient is a pack a day smoker and quit alcohol 2 months ago. Family history both parents were smokers. Review of Systems Review of systems: ENT: Denies sneezes or discharge. Eyes: Denies discharge or photophobia. Cardiac: Mild sternal discomfort. Pulmonary: Mild shortness of breath. Gastrointestinal: Denies nausea, emesis, constipation, diarrhea. Genitourinary: Denies discharge or frequency. Musculoskeletal: Denies muscle or bone aches. Neurologic: Generalized weakness. Endocrine: Denies shakes or sweats. Oncology: Denies cancers. Dermatologic: Denies rash, itching, pruritus. ALLERGY/immunology: Denies sneezes, rashes. Past Medical History Past Medical History: No Reported History Additional Past Medical History / Comment(s): head injury History of Any Multi-Drug Resistant Organisms: None Reported Past Surgical History: Orthopedic Surgery Additional Past Surgical History / Comment(s): cervical spinal fusion Past Anesthesia/Blood Transfusion Reactions: No Reported Reaction Smoking Status: Former smoker Past Drug Use History: None Reported - Past Family History Mother Family Medical History: No Reported History, Cancer (Throat cancer) Father Family Medical History: Unable to Obtain Brother(s) Family Medical History: No Reported History Sister(s) Family Medical History: No Reported History Daughter(s) Family Medical History: Unable to Obtain (Unknown history for daughters, not in contact) Son(s) Family Medical History: Unable to Obtain (Unknown history, NO CONTACT) Medications and Allergies Home Medications Medication Instructions Recorded Confirmed Type Aspirin 81 mg PO DAILY 03/08/19 03/14/19 History Atorvastatin [Lipitor] 40 mg PO HS 03/08/19 03/14/19 History HYDROcodone/APAP 10-325MG [[place] 1 tab PO Q6HR PRN 03/08/19 03/14/19 History 10-325] Isosorbide Mononitrate [Isosorbide 15 mg PO DAILY 03/08/19 03/14/19 History Mononitrate ER] Metoprolol Tartrate [Lopressor] 12.5 mg PO BID 03/08/19 03/14/19 History Mupirocin [Mupirocin 2%] 1 applic NASAL BID #1 tube 03/08/19 03/14/19 Rx Allergies Allergy/AdvReac Type Severity Reaction Status Date / Time No Known Allergies Allergy Verified 03/14/19 05:57 Physical Exam Vitals: Vital Signs Temp Pulse Pulse Resp BP Pulse Ox 03/15/19 16:00 98.2 F 87 22 94 L 03/15/19 15:30 86 16 96 03/15/19 15:00 112 H 37 H 94 L 03/15/19 14:30 87 25 H 94 L 03/15/19 14:00 89 46 H 101/59 94 L 03/15/19 13:30 85 14 94 L 03/15/19 13:00 85 19 105/71 93 L 03/15/19 12:39 90 03/15/19 12:30 86 13 94 L 03/15/19 12:29 86 03/15/19 12:00 98 F 84 14 105/71 94 L 03/15/19 11:30 83 14 110/81 94 L 03/15/19 11:00 100 13 94/59 96 03/15/19 10:30 85 12 94/59 92 L 03/15/19 10:00 81 17 88/60 94 L 03/15/19 09:30 81 16 94 L 03/15/19 09:00 87 12 92 L 03/15/19 08:30 89 21 96 03/15/19 08:21 96 03/15/19 08:10 86 96 03/15/19 08:00 98.9 F 92 73 12 90/62 94 L 03/15/19 07:30 87 21 94 L 03/15/19 07:00 89 16 95/61 93 L 03/15/19 06:30 100.4 F H 92 20 93 L 03/15/19 06:00 81 12 98 03/15/19 05:30 82 18 97 03/15/19 05:00 75 20 97 03/15/19 04:30 78 11 L 99 03/15/19 04:00 99.8 F H 81 20 97 03/15/19 03:30 99.8 F H 75 15 98 03/15/19 03:00 69 11 L 97 03/15/19 02:30 75 17 98 03/15/19 02:00 75 18 98 03/15/19 01:30 76 14 98 03/15/19 01:00 80 16 98 03/15/19 00:30 81 20 97 03/15/19 00:00 100.1 F H 82 18 96 03/14/19 23:30 82 18 98 03/14/19 23:16 83 15 98 03/14/19 23:00 84 20 97 03/14/19 22:30 82 12 99 03/14/19 22:00 82 18 98 03/14/19 21:30 82 13 99 03/14/19 21:00 84 22 98 03/14/19 20:30 82 15 98 03/14/19 20:01 93 03/14/19 20:00 99.3 F 96 20 96 03/14/19 19:51 81 03/14/19 19:00 85 18 97 03/14/19 18:30 86 10 L 97 03/14/19 18:15 87 16 87/56 96 03/14/19 18:00 89 14 87/56 95 03/14/19 17:45 88 28 H 97 03/14/19 17:30 89 14 97 03/14/19 17:15 85 15 98 03/14/19 17:00 81 12 96 03/14/19 16:45 86 21 96 03/14/19 16:36 100 03/14/19 16:30 93 21 99 03/14/19 16:15 85 17 99 Intake and Output 03/15/19 03/15/19 03/15/19 06:59 14:59 22:59 Intake Total 1154.0 924 72 Output Total 1390 685 140 Balance -236.0 239 -68 Intake: IV 954.0 924 72 0.9 Pressure Bags 72 114 12 Albumin Human 5% 250 ml 250 250 In Empty Bag 1 bag @ 250 mls/hr IVPB Q1HR PRN Rx#: [id number] CO/CI 130 20 Cardizem 40 10 Lactated Ringers 1,000 ml 400 530 60 @ 20 mls/hr IV .Q24H GERMAINE Rx#:[id number] Nitroglycerine 12.0 0 ceFAZolin 2 gm In Sodium 50 Chloride 0.9% 50 ml @ 100 mls/hr IVPB Q8HR GERMAINE Rx# :[id number] Intake, IV Titration 100 Amount ACETAMINOPHEN IV (For NPO 100 ) 1,000 mg In Empty Bag 1 bag @ 400 mls/hr IVPB Q6HR GERMAINE Rx#:[id number] Oral 100 Output: Chest Tube Drainage 695 10 Chest Tube Bilateral 430 10 Chest Tube Mediastinal 265 0 Drainage 290 50 Bilateral Medial Chest 190 30 Medial Chest 100 20 Urine 695 385 90 Other: Voiding Method Indwelling Catheter Indwelling Catheter Weight 53.5 kg 53.5 kg ABP, PAP, CO, CI - Last 8 Hours Arterial Blood Pressure 127/58 Arterial Blood Pressure 123/59 Arterial Blood Pressure 178/105 Arterial Blood Pressure 124/43 Arterial Blood Pressure 116/40 Arterial Blood Pressure 122/46 Arterial Blood Pressure 115/45 Arterial Blood Pressure 116/48 Arterial Blood Pressure 113/57 Arterial Blood Pressure 114/57 Arterial Blood Pressure 133/81 Arterial Blood Pressure 110/55 Arterial Blood Pressure 91/56 Arterial Blood Pressure 92/54 Arterial Blood Pressure 86/44 Arterial Blood Pressure 132/56 Cardiac Output 7.4 Cardiac Output 7.4 Cardiac Index 4.2 Cardiac Index 4.2 Cardiac Index 4 Skin: Good color, texture, turgor. General: Thin build and comfortable appearance. Head: Normocephalic, atraumatic. Eyes: Symmetric. Pupils equal round. Ears: Symmetric. Hearing within normal limits. Mouth: Clear. Neck: Supple. Carotid without bruit. Cardiac: Regular rate and rhythm. Lungs: Clear anteriorly and posteriorly. Abdomen: Soft active nontender. Extremities: Normal tone. Neurological: Mental status: Alert, cooperative, pleasant. Fatigued affect. Cranial nerves: Symmetric facial tone and trapezius. Motor: Actively moves all 4 limbs but at best antigravity. Sensation: Intact throughout. DTRs: Symmetric and equal throughout. Mobility: Nurse reports two-person assist for transfer from bed to Katelyn chair. Results CBC & Chem 7: 03/15/19 04:00 03/15/19 04:00 Labs: Abnormal Lab Results - Last 24 Hours (Table) 03/08/19 03/14/19 03/14/19 Range/Units 08:57 16:22 16:24 RBC (4.30-5.90) m/uL Hgb (13.0-17.5) gm/dL Hct (39.0-53.0) % Neutrophils # (1.3-7.7) k/uL Lymphocytes # (1.0-4.8) k/uL ABG pH 7.34 L (7.35-7.45) ABG pCO2 46 H (35-45) mmHg ABG Total CO2 26 H (19-24) mmol/L ABG O2 Saturation 97.7 H (94-97) % Creatinine (0.66-1.25) mg/dL Glucose (74-99) mg/dL POC Glucose (mg/dL) 115 H (75-99) mg/dL Total Protein (6.3-8.2) g/dL Albumin (3.5-5.0) g/dL Crossmatch See Detail 03/14/19 03/14/19 03/14/19 Range/Units 17:56 18:10 19:19 RBC 3.06 L (4.30-5.90) m/uL Hgb 9.5 L (13.0-17.5) gm/dL Hct 28.0 L (39.0-53.0) % Neutrophils # 8.0 H (1.3-7.7) k/uL Lymphocytes # 0.7 L (1.0-4.8) k/uL ABG pH (7.35-7.45) ABG pCO2 (35-45) mmHg ABG Total CO2 (19-24) mmol/L ABG O2 Saturation (94-97) % Creatinine (0.66-1.25) mg/dL Glucose (74-99) mg/dL POC Glucose (mg/dL) 122 H 118 H (75-99) mg/dL Total Protein (6.3-8.2) g/dL Albumin (3.5-5.0) g/dL Crossmatch 03/14/19 03/14/19 03/14/19 Range/Units 20:01 20:35 22:06 RBC 2.99 L (4.30-5.90) m/uL Hgb 9.6 L (13.0-17.5) gm/dL Hct 27.4 L (39.0-53.0) % Neutrophils # (1.3-7.7) k/uL Lymphocytes # 0.8 L (1.0-4.8) k/uL ABG pH (7.35-7.45) ABG pCO2 (35-45) mmHg ABG Total CO2 (19-24) mmol/L ABG O2 Saturation (94-97) % Creatinine (0.66-1.25) mg/dL Glucose (74-99) mg/dL POC Glucose (mg/dL) 133 H 107 H (75-99) mg/dL Total Protein (6.3-8.2) g/dL Albumin (3.5-5.0) g/dL Crossmatch 03/14/19 03/15/19 03/15/19 Range/Units 23:07 00:32 01:06 RBC (4.30-5.90) m/uL Hgb (13.0-17.5) gm/dL Hct (39.0-53.0) % Neutrophils # (1.3-7.7) k/uL Lymphocytes # (1.0-4.8) k/uL ABG pH (7.35-7.45) ABG pCO2 (35-45) mmHg ABG Total CO2 (19-24) mmol/L ABG O2 Saturation (94-97) % Creatinine (0.66-1.25) mg/dL Glucose (74-99) mg/dL POC Glucose (mg/dL) 108 H 102 H 116 H (75-99) mg/dL Total Protein (6.3-8.2) g/dL Albumin (3.5-5.0) g/dL Crossmatch 03/15/19 03/15/19 03/15/19 Range/Units 02:10 03:11 04:00 RBC 2.99 L (4.30-5.90) m/uL Hgb 9.4 L (13.0-17.5) gm/dL Hct 27.2 L (39.0-53.0) % Neutrophils # (1.3-7.7) k/uL Lymphocytes # (1.0-4.8) k/uL ABG pH (7.35-7.45) ABG pCO2 (35-45) mmHg ABG Total CO2 (19-24) mmol/L ABG O2 Saturation (94-97) % Creatinine (0.66-1.25) mg/dL Glucose (74-99) mg/dL POC Glucose (mg/dL) 110 H 109 H (75-99) mg/dL Total Protein (6.3-8.2) g/dL Albumin (3.5-5.0) g/dL Crossmatch 03/15/19 03/15/19 03/15/19 Range/Units 04:00 04:13 07:01 RBC (4.30-5.90) m/uL Hgb (13.0-17.5) gm/dL Hct (39.0-53.0) % Neutrophils # (1.3-7.7) k/uL Lymphocytes # (1.0-4.8) k/uL ABG pH (7.35-7.45) ABG pCO2 (35-45) mmHg ABG Total CO2 (19-24) mmol/L ABG O2 Saturation (94-97) % Creatinine 0.43 L (0.66-1.25) mg/dL Glucose 112 H (74-99) mg/dL POC Glucose (mg/dL) 125 H 123 H (75-99) mg/dL Total Protein 5.2 L (6.3-8.2) g/dL Albumin 3.3 L (3.5-5.0) g/dL Crossmatch 03/15/19 03/15/19 03/15/19 Range/Units 07:29 08:05 09:07 RBC (4.30-5.90) m/uL Hgb (13.0-17.5) gm/dL Hct (39.0-53.0) % Neutrophils # (1.3-7.7) k/uL Lymphocytes # (1.0-4.8) k/uL ABG pH (7.35-7.45) ABG pCO2 (35-45) mmHg ABG Total CO2 (19-24) mmol/L ABG O2 Saturation (94-97) % Creatinine (0.66-1.25) mg/dL Glucose (74-99) mg/dL POC Glucose (mg/dL) 229 H 168 H 130 H (75-99) mg/dL Total Protein (6.3-8.2) g/dL Albumin (3.5-5.0) g/dL Crossmatch 03/15/19 03/15/19 Range/Units 11:05 11:48 RBC (4.30-5.90) m/uL Hgb (13.0-17.5) gm/dL Hct (39.0-53.0) % Neutrophils # (1.3-7.7) k/uL Lymphocytes # (1.0-4.8) k/uL ABG pH (7.35-7.45) ABG pCO2 (35-45) mmHg ABG Total CO2 (19-24) mmol/L ABG O2 Saturation (94-97) % Creatinine (0.66-1.25) mg/dL Glucose (74-99) mg/dL POC Glucose (mg/dL) 109 H 101 H (75-99) mg/dL Total Protein (6.3-8.2) g/dL Albumin (3.5-5.0) g/dL Crossmatch Assessment and Plan (1) Arteriosclerosis of coronary artery Current Visit: Yes Status: Acute Code(s): I25.10 - ATHSCL HEART DISEASE OF [place] CORONARY ARTERY W/O ANG PCTRS SNOMED Code(s): 34608139 Plan: Impression: 1. Cardiac debility. 2. CAD with recent CABG. Plan: At this time OT are ongoing and PT prescribed. Would anticipate safety concerns and possible need of inpatient rehab. Awaiting PT notes. [facility] inpatient rehab discussed with patient and he seems agreeable if necessary.
[2019-03-15 17:16] LABS: Glucose,Whole Blood 127 mg/dL (75-99)
[2019-03-15 20:36] LABS: Glucose,Whole Blood 117 mg/dL (75-99)
[2019-03-15] MEDS: SENNOSIDES-DOCUSATE SODIUM 1 EACH TAB PO SCH (22:04)
[2019-03-16] MEDS: DILTIAZEM ORAL 30 MG TAB PO SCH ×5 (01:04→23:51)
[2019-03-16] MEDS: KETOROLAC 30 MG/ML 1 ML VIAL IVP SCH ×5 (01:04→23:51)
[2019-03-16 05:28] LABS: Basophils % (A) 0 %; Eosinophils # (A) 0.1 k/uL (0-0.7); Eosinophils % (A) 1 %; HCT 25.8 % (39.0-53.0); HGB 8.9 gm/dL (13.0-17.5); Lymphocytes # (A) 1.4 k/uL (1.0-4.8); Lymphocytes % (A) 13 %; MCH 31.2 pg (25.0-35.0); MCHC 34.6 g/dL (31.0-37.0); MCV 90.2 fL (80.0-100.0); Mean Platelet Volume 7.2; Monocytes # (A) 0.5 k/uL (0-1.0); Monocytes % (A) 4 %; Neutrophils # (A) 8.2 k/uL (1.3-7.7); Neutrophils % (A) 80 %; Platelet Count 177 k/uL (150-450); RBC 2.86 m/uL (4.30-5.90); RDW 13.2 % (11.5-15.5); WBC 10.2 k/uL (3.8-10.6)
[2019-03-16 05:52] LABS: ALT 9 U/L (4-49); AST 29 U/L (17-59); African American GFR (CKD) >90 (>60 ml/min/1.73 sqM); Albumin 3.3 g/dL (3.5-5.0); Alkaline Phosphatase 54 U/L (38-126); Anion Gap 6 mmol/L; Blood Urea Nitrogen 12 mg/dL (9-20); Calcium 8.8 mg/dL (8.4-10.2); Carbon Dioxide 26 mmol/L (22-30); Chloride 105 mmol/L (98-107); Glucose 107 mg/dL (74-99); Non-African American GFR(CKD) >90 (>60 ml/min/1.73 sqM); Potassium 3.5 mmol/L (3.5-5.1); Sodium 137 mmol/L (137-145); Total Bilirubin 0.7 mg/dL (0.2-1.3); Total Protein 5.6 g/dL (6.3-8.2)
[2019-03-16 06:57] LABS: Glucose,Whole Blood 116 mg/dL (75-99)
[2019-03-16] MEDS: PANTOPRAZOLE 40 MG TABLET PO SCH (07:00)
[2019-03-16] MEDS: HEPARIN SODIUM,PORCINE 5,000 UNIT/ML 1 ML VIAL SQ SCH ×3 (07:00→21:38)
[2019-03-16] MEDS: INSULIN ASPART (NovoLOG) 100 UNIT/ML VIAL SQ SCH ×4 (07:53→21:29)
[2019-03-16] MEDS: METOPROLOL TARTRATE 25 MG TAB PO SCH ×2 (08:12→21:37)
[2019-03-16] MEDS: POTASSIUM CHLORIDE ER 20 MEQ TAB.ER PO SCH ×3 (08:12→12:16)
[2019-03-16] MEDS: ATORVASTATIN 40 MG TAB PO SCH (08:12)
[2019-03-16] MEDS: CLOPIDOGREL 75 MG TAB PO SCH (08:12)
[2019-03-16] MEDS: FOLIC ACID 1 MG TAB PO SCH (08:12)
[2019-03-16] MEDS: THIAMINE 100 MG TAB PO SCH (08:13)
[2019-03-16] MEDS: ASPIRIN 325 MG TAB PO SCH (08:13)
--- NOTE | 2019-03-16 08:31 | XR ---
EXAMINATION TYPE: XR chest 1V portable DATE OF EXAM: 03/16/2019 COMPARISON: 03/15/2019a INDICATION: Postoperative cardiac surgery TECHNIQUE: Single frontal view of the chest is obtained. FINDINGS: The heart size is normal. Sternotomy wires are present from a CABG. The pulmonary vasculature is normal. Minimal left apical pneumothorax remains present. Left-sided chest tube remains present. Right-sided chest tube is present. Mild right apical pneumothorax is stable. Mediastinal tube remains in position. Lacrosse-Gerry catheter is been removed. IMPRESSION: 1. Small stable bilateral apical pneumothoraces. 2. Chest tubes remain in position.
[2019-03-16] MEDS: IPRATROPIUM-ALBUTEROL 3 ML NEB INHALATION SCH ×4 (08:43→21:10)
[2019-03-16] MEDS ORDERED: FUROSEMIDE 10 MG/ML 2 ML VIAL IV ONE (09:41)
--- NOTE | 2019-03-16 09:53 | PN ---
PROGRESS NOTE He is status post bypass surgery. He is hemodynamically stable, looks good. Urine output is fairly decent. However, he is coughing up and has a lot of secretions from respiratory standpoint. I am recommending that we continue incentive spirometry and pulmonary toilet for this patient. His potassium is slightly low, this is being supplemented. PHYSICAL EXAMINATION: Physical exam revealed vitals are stable. JVD 1 cm. S1, S2 heard normally. Lungs reveal scattered rhonchi. Abdomen is soft. Lower extremities reveal diminished pulses. We will continue incentive spirometry and pulmonary toilet. MMODL / IJN: [id number] /
[2019-03-16] MEDS: LACTATED RINGERS 1,000 ML IV SCH (10:20)
[2019-03-16 12:09] LABS: Glucose,Whole Blood 132 mg/dL (75-99)
--- NOTE | 2019-03-16 12:43 | P.PN ---
Subjective Progress Note Date: 03/16/19 Principal diagnosis: Off pump CABG 5 with sequential BUSH to first diagonal and LAD, left radial artery graft to obtuse marginal, sequential saphenous vein graft to posterior lateral and posterior descending branches of the right coronary artery. Endovascular vein harvest, endovascular radial harvest, RAMY by anesthesia, postoperative day #2 This is a 58-year-old white male who had recent cervical stenosis and surgery. Prior to his cardiac clearance, the patient had CT calcium score, and it was noted to be high. Hence after his cervical surgery, patient underwent cardiac catheterization, and demonstrated a three-vessel coronary artery disease with 95+ stenosis in the LAD and circumflex distributions along with 90+ percent stenosis in the right coronary artery. The right coronary artery was noted to be dominant, and leads 2 to posterior lateral branches. Patient was referred to surgery, and today the patient underwent elective 5 bypasses, one to LAD, first diagonal, obtuse marginal, PDA, and right coronary artery. Postoperatively patient was sent to the ICU on mechanical ventilation. And I was asked to see him on consultation. As a matter of fact by the time I saw the patient, he was already awake, and he was on CPAP. Continued the patient on CPAP, ABG 1 hour later was adequate, patient was extubated uneventfully to a nasal cannula. Reevaluated today on 03/15/2019, patient remains in the ICU, he was extubated yesterday uneventfully. Denies any shortness of breath, no cough, no wheezing, he is actually on room air, not requiring any pressors or any inotropes. Currently on IV Cardizem and nitroglycerin. Chest x-ray showed minimal bibasilar atelectasis with small tiny apical pneumothoraces, not clinically significant. Chest tubes noted on both sides. Labs were reviewed and they seem to be relatively unremarkable including normal renal profile and normal CBC and normal electrolytes. Reevaluated today on 03/16/2019, patient remains in the ICU, doing quite well. He was extubated shortly after his surgery, presently asymptomatic, no cough no wheezing no shortness of breath. Chest x-ray was reviewed, has minimal apical pneumothoraces. Chest tubes in place. No air leak noted in the pleural VAC. WBC is 10.2 hemoglobin is 8.9 units lites are normal renal profile is normal Objective - Vital Signs Vital signs: Vital Signs Temp 97.4 F L 03/16/19 08:00 Pulse 81 03/16/19 10:00 Resp 14 03/16/19 10:00 BP 128/98 03/16/19 08:00 Pulse Ox 94 L 03/16/19 10:00 Intake & Output 03/15/19 03/16/19 03/16/19 18:59 06:59 18:59 Intake Total 1288 367 278 Output Total 975 1025 90 Balance 313 -658 188 Weight 53.5 kg 61.7 kg Intake: IV 1048 367 78 0.9 Pressure Bags 138 72 18 Albumin Human 5% 250 ml 250 In Empty Bag 1 bag @ 250 mls/hr IVPB Q1HR PRN Rx#: [id number] CO/CI 20 Cardizem 10 Lactated Ringers 1,000 ml 630 295 60 @ 20 mls/hr IV .Q24H GERMAINE Rx#:[id number] Nitroglycerine 0 Oral 240 200 Output: Chest Tube Drainage 10 0 Chest Tube Bilateral 10 0 Chest Tube Mediastinal 0 0 Drainage 390 210 Bilateral Medial Chest 250 130 Medial Chest 140 80 Urine 575 815 90 Other: Voiding Method Indwelling Catheter Indwelling Catheter Indwelling Catheter # Bowel Movements 1 ABP, PAP, CO, CI - Last Documented Arterial Blood Pressure 124/58 Pulmonary Artery Pressure 20/7 Cardiac Output 7.4 Cardiac Index 4.2 - Exam Physical Exam: Revealed a 58-year-old white male, on room air, in no distress Head: Atraumatic, normocephalic. HEENT:[Neck is supple.] [No neck masses.] [No thyromegaly.] [No JVD.] Chest: [Crackles at the bases no rhonchi no wheezes. Chest tubes were noted bilaterally. Cardiac Exam: [Normal S1 and S2, positive pericardial rub. Abdomen: [Soft, nontender, no megaly, no rebound, no guarding, normal bowel sounds.] Extremities: [No clubbing, no edema, no cyanosis.]SCDs present. Neurological Exam: Alert and oriented 3, no gross focal deficits.. Skin: No rashes. Lymphatics: No lymphadenopathy. Psychiatric: Normal mood, blunt affect, normal mental status examination. - Labs CBC & Chem 7: 03/16/19 05:00 03/16/19 05:00 Labs: Abnormal Lab Results - Last 24 Hours (Table) 03/15/19 03/15/19 03/16/19 Range/Units 17:05 20:25 05:00 RBC 2.86 L (4.30-5.90) m/uL Hgb 8.9 L (13.0-17.5) gm/dL Hct 25.8 L (39.0-53.0) % Neutrophils # 8.2 H (1.3-7.7) k/uL Creatinine (0.66-1.25) mg/dL Glucose (74-99) mg/dL POC Glucose (mg/dL) 127 H 117 H (75-99) mg/dL Total Protein (6.3-8.2) g/dL Albumin (3.5-5.0) g/dL 03/16/19 03/16/19 03/16/19 Range/Units 05:00 06:45 11:57 RBC (4.30-5.90) m/uL Hgb (13.0-17.5) gm/dL Hct (39.0-53.0) % Neutrophils # (1.3-7.7) k/uL Creatinine 0.43 L (0.66-1.25) mg/dL Glucose 107 H (74-99) mg/dL POC Glucose (mg/dL) 116 H 132 H (75-99) mg/dL Total Protein 5.6 L (6.3-8.2) g/dL Albumin 3.3 L (3.5-5.0) g/dL Assessment and Plan Assessment: Impression: 1: Off pump CABG 5 with sequential BUSH to first diagonal and LAD, left radial artery graft to obtuse marginal, sequential saphenous vein graft to posterior lateral and posterior descending branches of the right coronary artery. Endovascular vein harvest, endovascular radial harvest, RAMY by anesthesia, postoperative day #2 2: History of cervical stenosis requiring cervical fusion. 3: History of mild to moderate COPD, FEV1 is in the range of 69%. New 4: Mild LV dysfunction based on recent echocardiogram. Recommendation: Continue incentive spirometry. Continue aspirin statins and Plavix and beta blockers. Continue GI and DVT prophylaxis. Being considered for possible transfer to rehab.. Continue bronchodilators. Increase activity as tolerated. We'll continue to follow. Time with Patient: Less than 30
--- NOTE | 2019-03-16 13:37 | P.PN ---
Subjective Progress Note Date: 03/16/19 This is a pleasant 58-year-old gentleman patient of Dr. Lozada. He has underlying history of COPD, hyperlipidemia, hypertension, and current tobacco use. Patient denies any history of CVA, no prior diabetes mellitus, He underwent CABG 5 vessel bypass on 03/14/2019, by Dr. Meyers, requiring sequential BUSH graft to the LAD, and first diagonal branch, left radial artery to the obtuse marginal branch of circumflex, saphenous vein graft to the PDA and PLV branch of RCA,. He is transferred fascial echo preop shows EF of 45-50%, follows with Dr. Obrien cardiology with a recent cardiac cath revealing calcified triple-vessel disease. Patient does not have any pulmonary doctor outside of the hospital, patient patient denies any Leg claudication, no previous CVA or stroke. He was extubated on 03/15/2019, few hours after CABG, and by the time he was evaluated by critical care medicine, he was already alert awake, and on CPAP machine, and was fully extubated. Currently on nasal cannula for O2 supplementation 03/16: Patient is afebrile, heart rate 109, blood pressure 111/82, pulse ox 94% on room air. Repeat blood work shows WBC 10.2, hemoglobin 8.9, creatinine 0.43. Blood sugars run between 107 and 127. Patient is currently on scale NovoLog only, no history of diabetes. Patient is found sitting up in a chair. Shah catheter was removed this morning patient is urinated 2 following Lasix. He has had good urine output. Cordis has been removed as well as a line. One chest tube is been removed. Anticipate the 2 remaining chest tubes will be removed tomorrow. Patient did have a very large bowel movement this morning. He is using incentive spirometry and reaching 1000. Patient is complaining of not being able to sleep at home as well as during this hospitalization. Melatonin will be added. Hoarseness is improving. Review of Systems Review Of Systems: Constitutional: No fever, no chills, no night sweats. No weight change. No weakness, fatigue or lethargy. Reports daytime sleepiness. EENT: No headache. No blurred vision or double vision, no loss of vision. No loss of Hearing, no ringing in the ears, no dizziness. No nasal drainage or congestion. No epistaxis. No sore throat. Lungs: No shortness of breath, cough, no sputum production. No wheezing. Cardiovascular: Reports chest discomfort, no lower extremity edema. No palpitations. No paroxysmal nocturnal dyspnea. No orthopnea. No lightheadedness or dizziness. No syncopal episodes. Abdominal: No abdominal pain. No nausea, vomiting. No diarrhea. No constipation. No bloody or tarry stools.. No loss of appetite. Genitourinary: No dysuria, increased frequency, urgency. No urinary retention. Musculoskeletal: No myalgias. No muscle weakness, no gait dysfunction, no frequent falls. No back pain. No neck pain. Integumentary: No wounds, no lesions. No rash or pruritus. No unusual bruising. No change in hair or nails. Neurologic: No aphasia. No facial droop. No change in mentation. No head injury. No headache. No paralysis. No paresthesia. Psychiatric: No depression. No anxiety. No mood swings. Reports insomnia. Endocrine: No abnormal blood sugars. No weight change. No excessive sweating or thirst. No cold intolerance. Objective - Vital Signs Vital signs: Vital Signs Temp 97.4 F L 03/16/19 08:00 Pulse 84 03/16/19 09:00 Resp 21 03/16/19 09:00 BP 128/98 03/16/19 08:00 Pulse Ox 95 03/16/19 09:00 Intake & Output 03/15/19 03/16/19 03/16/19 18:59 06:59 18:59 Intake Total 1288 367 228 Output Total 975 1025 90 Balance 313 -658 138 Weight 53.5 kg 61.7 kg Intake: IV 1048 367 78 0.9 Pressure Bags 138 72 18 Albumin Human 5% 250 ml 250 In Empty Bag 1 bag @ 250 mls/hr IVPB Q1HR PRN Rx#: [id number] CO/CI 20 Cardizem 10 Lactated Ringers 1,000 ml 630 295 60 @ 20 mls/hr IV .Q24H [facility] Rx#:[id number] Nitroglycerine 0 Oral 240 150 Output: Chest Tube Drainage 10 0 Chest Tube Bilateral 10 0 Chest Tube Mediastinal 0 0 Drainage 390 210 Bilateral Medial Chest 250 130 Medial Chest 140 80 Urine 575 815 90 Other: Voiding Method Indwelling Catheter Indwelling Catheter Indwelling Catheter # Bowel Movements 1 ABP, PAP, CO, CI - Last Documented Arterial Blood Pressure 94/42 Pulmonary Artery Pressure 20/7 Cardiac Output 7.4 Cardiac Index 4.2 - Exam General appearance: cooperative, no acute distress, patient resting in chair. - EENT Eyes: EOMI, PERRLA, dentition normal ENT: NA/AT, normal oropharynx (Hoarse voice) - Neck Neck: no lymphadenopathy, no normal ROM, no other, no rigidity, no stridor, no thyromegaly - Respiratory Respiratory: bilateral: CTA, negative: diminished, dullness, rales, rhonchi, wheezing - Cardiovascular Rhythm: regular Heart sounds: normal: S1, S2 Abnormal Heart Sounds: no systolic murmur, no diastolic murmur, no rub, no S3 Gallop, no S4 Gallop, no click, no other - Gastrointestinal General gastrointestinal: normal bowel sounds, soft - Integumentary Integumentary: decreased turgor, normal - Neurologic Neurologic: CNII-XII intact - Musculoskeletal Musculoskeletal: gait normal, strength equal bilaterally - Psychiatric Psychiatric: A&O x's 3, appropriate affect - Labs CBC & Chem 7: 03/16/19 05:00 03/16/19 05:00 Labs: Abnormal Lab Results - Last 24 Hours (Table) 03/15/19 03/15/19 03/15/19 Range/Units 11:05 11:48 17:05 RBC (4.30-5.90) m/uL Hgb (13.0-17.5) gm/dL Hct (39.0-53.0) % Neutrophils # (1.3-7.7) k/uL Creatinine (0.66-1.25) mg/dL Glucose (74-99) mg/dL POC Glucose (mg/dL) 109 H 101 H 127 H (75-99) mg/dL Total Protein (6.3-8.2) g/dL Albumin (3.5-5.0) g/dL 03/15/19 03/16/19 03/16/19 Range/Units 20:25 05:00 05:00 RBC 2.86 L (4.30-5.90) m/uL Hgb 8.9 L (13.0-17.5) gm/dL Hct 25.8 L (39.0-53.0) % Neutrophils # 8.2 H (1.3-7.7) k/uL Creatinine 0.43 L (0.66-1.25) mg/dL Glucose 107 H (74-99) mg/dL POC Glucose (mg/dL) 117 H (75-99) mg/dL Total Protein 5.6 L (6.3-8.2) g/dL Albumin 3.3 L (3.5-5.0) g/dL 03/16/19 Range/Units 06:45 RBC (4.30-5.90) m/uL Hgb (13.0-17.5) gm/dL Hct (39.0-53.0) % Neutrophils # (1.3-7.7) k/uL Creatinine (0.66-1.25) mg/dL Glucose (74-99) mg/dL POC Glucose (mg/dL) 116 H (75-99) mg/dL Total Protein (6.3-8.2) g/dL Albumin (3.5-5.0) g/dL Assessment and Plan Plan: 1. CAD with 3 vessel disease requiring CABG, POD #2 on March 14 2019, involving 5 vessel bypass graft. He had 5 vessel bypass graft, involving BUSH to the LAD and first diagonal, radial artery from the left to the obtuse marginal branch of circumflex, saphenous vein to the PDA and PLV of the RCA, preop RAMY shows EF of 45-50%, aspirin, Lipitor, Plavix, diltiazem 30 every 6 hours scheduled. Shah catheter, Cordis, a line and one chest tube removed. Anticipate 2 remaining chest tubes to be removed tomorrow. Continue incentive spirometry to reduce incidence of atelectasis and hospital-acquired pneumonia. 2. COPD, without any current exacerbation, patient is on prophylactic nebulizers, has an FEV1 of 69%, O2 supplementation next 3. Current tobacco use, patient's counseled, forced permanent smoking cessation program 4. Recent cervical stenosis surgery requiring cervical fusion, November 2018 no current radicular symptoms 5. Prior history of syncope, unclear etiology 6. Prediabetes with episodes of Hyperglycemia without a diagnosis of diabetes mellitus, hemoglobin A1c was 6.1, Accu-Cheks before meals and at bedtime with NovoLog scale 7. Hyperlipidemia, on statins, recent LDL was 100 8. Current chronic hoarse voice since cervical surgery, continue to monitor, no current symptoms of pain 9. DVT prophylaxis iv heparin scd 7. GI prophylaxis protonix Discharge plan: Possibly [facility] for inpatient rehab on Tuesday. Awaiting insurance authorization. Impression and plan of care have been directed as dictated by the signing physician. Susan Hannah nurse practitioner acting as scribe for signing physician.
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
[2019-03-16 17:18] LABS: Glucose,Whole Blood 107 mg/dL (75-99)
[2019-03-16 20:39] LABS: Glucose,Whole Blood 129 mg/dL (75-99)
[2019-03-16] MEDS: SENNOSIDES-DOCUSATE SODIUM 1 EACH TAB PO SCH (21:37)
[2019-03-16] MEDS: ACETAMINOPHEN TAB 500 MG TAB PO PRN (21:37)
[2019-03-16] MEDS: MELATONIN 3 MG TABLET PO SCH (23:51)
[2019-03-17] MEDS: HEPARIN SODIUM,PORCINE 5,000 UNIT/ML 1 ML VIAL SQ SCH ×3 (05:44→21:19)
[2019-03-17] MEDS: KETOROLAC 30 MG/ML 1 ML VIAL IVP SCH ×4 (05:45→23:49)
[2019-03-17] MEDS: DILTIAZEM ORAL 30 MG TAB PO SCH ×4 (05:45→23:50)
[2019-03-17] MEDS: PANTOPRAZOLE 40 MG TABLET PO SCH (05:45)
[2019-03-17 06:18] LABS: Glucose,Whole Blood 110 mg/dL (75-99)
[2019-03-17 07:03] LABS: HCT 25.9 % (39.0-53.0); HGB 8.8 gm/dL (13.0-17.5); MCH 31.3 pg (25.0-35.0); MCV 91.9 fL (80.0-100.0); Mean Platelet Volume 7.6; Platelet Count 195 k/uL (150-450); RBC 2.82 m/uL (4.30-5.90); RDW 13.2 % (11.5-15.5); WBC 9.3 k/uL (3.8-10.6)
[2019-03-17 07:14] LABS: ALT 15 U/L (4-49); AST 35 U/L (17-59); African American GFR (CKD) >90 (>60 ml/min/1.73 sqM); Albumin 3.3 g/dL (3.5-5.0); Alkaline Phosphatase 58 U/L (38-126); Anion Gap 6 mmol/L; Blood Urea Nitrogen 15 mg/dL (9-20); Calcium 8.7 mg/dL (8.4-10.2); Carbon Dioxide 28 mmol/L (22-30); Chloride 104 mmol/L (98-107); Glucose 96 mg/dL (74-99); Non-African American GFR(CKD) >90 (>60 ml/min/1.73 sqM); Potassium 3.9 mmol/L (3.5-5.1); Sodium 138 mmol/L (137-145); Total Bilirubin 0.7 mg/dL (0.2-1.3); Total Protein 5.8 g/dL (6.3-8.2)
--- NOTE | 2019-03-17 07:16 | XR ---
EXAMINATION TYPE: XR chest 1V portable DATE OF EXAM: 03/17/2019 HISTORY: Postoperative cardiac surgery. REFERENCE: Previous study dated 03/16/2019. FINDINGS: There has been a previous ACDF in the lower cervical spine line. There is been a midline st ernotomy. There are bilateral chest tubes in place. There has been internal fixation of the left clav icle There are continuing tiny apical pneumothoraces bilaterally. These have decreased slightly from previ ous. There is scarring or atelectasis at the left lung base. This is unchanged from previous. The rig ht lung is clear. Heart size upper limits of normal. IMPRESSION: TINY, RESIDUAL APICAL PNEUMOTHORACES BILATERALLY.
[2019-03-17] MEDS: IPRATROPIUM-ALBUTEROL 3 ML NEB INHALATION SCH ×4 (07:50→19:24)
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
[2019-03-17] MEDS: INSULIN ASPART (NovoLOG) 100 UNIT/ML VIAL SQ SCH ×4 (09:17→21:19)
[2019-03-17] MEDS: ASPIRIN 325 MG TAB PO SCH (09:21)
[2019-03-17] MEDS: ATORVASTATIN 40 MG TAB PO SCH (09:22)
[2019-03-17] MEDS: FOLIC ACID 1 MG TAB PO SCH (09:22)
[2019-03-17] MEDS: METOPROLOL TARTRATE 25 MG TAB PO SCH ×3 (09:22→21:20)
[2019-03-17] MEDS: THIAMINE 100 MG TAB PO SCH (09:22)
[2019-03-17] MEDS: CLOPIDOGREL 75 MG TAB PO SCH (09:22)
[2019-03-17 11:53] LABS: Glucose,Whole Blood 116 mg/dL (75-99)
--- NOTE | 2019-03-17 12:43 | P.PN ---
Subjective Progress Note Date: 03/17/19 Principal diagnosis: Off-pump CABG 5 with sequential BUSH to the first diagonal and LAD, left radial arterial graft to the obtuse marginal, sequential saphenous vein graft to the posterior lateral and posterior descending branch of the right coronary artery. Postoperative day #3. This is a 58-year-old white male who had recent cervical stenosis and surgery. Prior to his cardiac clearance, the patient had CT calcium score, and it was noted to be high. Hence after his cervical surgery, patient underwent cardiac catheterization, and demonstrated a three-vessel coronary artery disease with 95+ stenosis in the LAD and circumflex distributions along with 90+ percent stenosis in the right coronary artery. The right coronary artery was noted to be dominant, and leads 2 to posterior lateral branches. Patient was referred to surgery, and today the patient underwent elective 5 bypasses, one to LAD, first diagonal, obtuse marginal, PDA, and right coronary artery. Postoperatively patient was sent to the ICU on mechanical ventilation. And I was asked to see him on consultation. As a matter of fact by the time I saw the patient, he was already awake, and he was on CPAP. Continued the patient on CPAP, ABG 1 hour later was adequate, patient was extubated uneventfully to a nasal cannula. Reevaluated today on 03/15/2019, patient remains in the ICU, he was extubated yesterday uneventfully. Denies any shortness of breath, no cough, no wheezing, he is actually on room air, not requiring any pressors or any inotropes. Currently on IV Cardizem and nitroglycerin. Chest x-ray showed minimal bibasilar atelectasis with small tiny apical pneumothoraces, not clinically significant. Chest tubes noted on both sides. Labs were reviewed and they seem to be relatively unremarkable including normal renal profile and normal CBC and normal electrolytes. Reevaluated today on 03/16/2019, patient remains in the ICU, doing quite well. He was extubated shortly after his surgery, presently asymptomatic, no cough no wheezing no shortness of breath. Chest x-ray was reviewed, has minimal apical pneumothoraces. Chest tubes in place. No air leak noted in the pleural VAC. WBC is 10.2 hemoglobin is 8.9 units lites are normal renal profile is normal The patient is seen today 03/17/2019 in follow-up on the selective care unit. He is currently sitting up in a chair at the bedside. Awake and alert in no acute distress. His bilateral chest tubes were removed earlier this morning by CT services. Chest x-ray revealed tiny apical pneumothoraces. He continues to work well with the incentive spirometer. He is on room air and maintaining O2 saturations in the mid to upper 90s. He has been afebrile. Hemodynamically stable. White count 9.3. Hemoglobin 8.8. Creatinine 0.53. Sodium 138. Potassium 3.9. Objective - Vital Signs Vital signs: Vital Signs Temp 97.6 F 03/17/19 08:00 Pulse 79 03/17/19 11:17 Resp 20 03/17/19 08:00 BP 113/55 03/17/19 08:00 Pulse Ox 97 03/17/19 08:00 Intake & Output 03/16/19 03/17/19 03/17/19 18:59 06:59 18:59 Intake Total 428 300 240 Output Total 940 630 Balance -512 -330 240 Weight 62.2 kg Intake: IV 78 0.9 Pressure Bags 18 Lactated Ringers 1,000 ml 60 @ 20 mls/hr IV .Q24H [facility] Rx#:[id number] Oral 350 300 240 Output: Chest Tube Drainage 0 30 Chest Tube Bilateral 0 30 Chest Tube Mediastinal 0 Urine 940 600 Other: Voiding Method Indwelling Catheter # Voids 1 # Bowel Movements 1 ABP, PAP, CO, CI - Last Documented Arterial Blood Pressure 124/58 Pulmonary Artery Pressure 20/7 Cardiac Output 7.4 Cardiac Index 4.2 - Exam GENERAL EXAM: Alert, active, pleasant 58-year-old gentleman, on room air comfortable in no apparent distress. HEAD: Normocephalic. EYES: Normal reaction of pupils, equal size. NOSE: Clear with pink turbinates. THROAT: No erythema or exudates. NECK: No masses, no JVD. CHEST: Heart hugger in place. No chest wall deformity. Chest tubes removed. LUNGS: Equal air entry with crackles in the bilateral posterior bases. CVS: S1 and S2 normal with no audible murmur, regular rhythm. ABDOMEN: No hepatosplenomegaly, normal bowel sounds, no guarding or rigidity. SPINE: No scoliosis or deformity SKIN: No rashes CENTRAL NERVOUS SYSTEM: No focal deficits, tone is normal in all 4 extremities. EXTREMITIES: There is no peripheral edema. No clubbing, no cyanosis. Peripheral pulses are intact. - Labs CBC & Chem 7: 03/17/19 06:16 03/17/19 06:16 Labs: Abnormal Lab Results - Last 24 Hours (Table) 03/16/19 03/16/19 03/17/19 Range/Units 17:07 20:36 06:09 RBC (4.30-5.90) m/uL Hgb (13.0-17.5) gm/dL Hct (39.0-53.0) % Creatinine (0.66-1.25) mg/dL POC Glucose (mg/dL) 107 H 129 H 110 H (75-99) mg/dL Total Protein (6.3-8.2) g/dL Albumin (3.5-5.0) g/dL 03/17/19 03/17/19 03/17/19 Range/Units 06:16 06:16 11:49 RBC 2.82 L (4.30-5.90) m/uL Hgb 8.8 L (13.0-17.5) gm/dL Hct 25.9 L (39.0-53.0) % Creatinine 0.53 L (0.66-1.25) mg/dL POC Glucose (mg/dL) 116 H (75-99) mg/dL Total Protein 5.8 L (6.3-8.2) g/dL Albumin 3.3 L (3.5-5.0) g/dL Assessment and Plan Assessment: 1: Off pump CABG 5 with sequential BUSH to first diagonal and LAD, left radial artery graft to obtuse marginal, sequential saphenous vein graft to posterior lateral and posterior descending branches of the right coronary artery. Endovascular vein harvest, endovascular radial harvest, RAMY by anesthesia, postoperative day #3 2: History of cervical stenosis requiring cervical fusion. 3: History of mild to moderate COPD, FEV1 is in the range of 69%. New 4: Mild LV dysfunction based on recent echocardiogram. Plan: The patient was seen and evaluated by Dr. Broderick. Chest x-ray and labs reviewed. Chest tubes removed. We'll continue with the current treatment plan. He is doing well and on room air. Continue to work with the incentive spirometer. Increase his activity as tolerated. We will continue to follow. I, the cosigning physician, performed a history & physical examination of the patient. Lungs sounds with faint crackles in the bilateral posterior bases. Maintaining good O2 saturations in the 90s on room air. I discussed the assessment and plan of care with my nurse practitioner, Barbara Alfonso. I attest to the above note as dictated by her.
--- NOTE | 2019-03-17 15:22 | P.PN ---
Subjective Progress Note Date: 03/17/19 This is a pleasant 58-year-old gentleman patient of Dr. Lozada. He has underlying history of COPD, hyperlipidemia, hypertension, and current tobacco use. Patient denies any history of CVA, no prior diabetes mellitus, He underwent CABG 5 vessel bypass on 03/14/2019, by Dr. Meyers, requiring sequential BUSH graft to the LAD, and first diagonal branch, left radial artery to the obtuse marginal branch of circumflex, saphenous vein graft to the PDA and PLV branch of RCA,. He is transferred fascial echo preop shows EF of 45-50%, follows with Dr. Obrien cardiology with a recent cardiac cath revealing calcified triple-vessel disease. Patient does not have any pulmonary doctor outside of the hospital, patient patient denies any Leg claudication, no previous CVA or stroke. He was extubated on 03/15/2019, few hours after CABG, and by the time he was evaluated by critical care medicine, he was already alert awake, and on CPAP machine, and was fully extubated. Currently on nasal cannula for O2 supplementation This is a 58-year-old gentleman status post 5 vessel bypass surgery. Patient has been hemodynamically stable and transferred out of the intensive care unit yesterday. Urine output has been adequate. Patient is coughing some sputum. He is using his incentive spirometry. Patient remains with 2 chest tubes which are scheduled to be removed today. He has been afebrile, WBC 9.3, hemoglobin 8.8, creatinine 0.53, sodium 130, potassium 3.4. Patient denies any new complaints. Physical examination: Gen: This is a thin 58-year-old male. He is sitting up in a chair and appears to be in no acute distress. VS: Blood pressure 99/75 and 107/66, heart rate in the 80s. HEENT: Head is atraumatic, normocephalic. Pupils equal, round. Sclerae is anicteric. NECK: Supple. No lymphadenopathy. No thyromegaly. LUNGS: Few scattered rhonchi. No intercostal retractions. HEART: Regular rate and rhythm. No murmur. ABDOMEN: Soft. Bowel sounds are present. No masses. No tenderness. EXTREMITIES: No pedal edema. No calf tenderness. Dorsalis pedis 1+ bilater ally. NEUROLOGICAL: Patient is awake, alert and oriented x3. Cranial nerves 2 through 12 are grossly intact. Assessment: 5 vessel CABG Cervical stenosis COPD Current tobacco use and dependence Hyperlipidemia Possible prediabetes Plan: Continue aspirin, Lipitor, Plavix Continue Cardizem 30 mg by mouth every 6 hours, Lopressor 25 mg 3 times daily Further recommendations to follow based upon clinical course Nurse practitioner note has been reviewed, I agree with documented findings and plan of care. Patient was seen and examined. Objective - Vital Signs Vital signs: Vital Signs Temp 98.2 F 03/17/19 03:12 Pulse 76 03/17/19 08:00 Resp 17 03/17/19 03:12 BP 99/56 03/17/19 03:12 Pulse Ox 98 03/17/19 03:12 Intake & Output 03/16/19 03/17/19 03/17/19 18:59 06:59 18:59 Intake Total 428 300 240 Output Total 940 630 Balance -512 -330 240 Weight 62.2 kg Intake: IV 78 0.9 Pressure Bags 18 Lactated Ringers 1,000 ml 60 @ 20 mls/hr IV .Q24H [facility] Rx#:[id number] Oral 350 300 240 Output: Chest Tube Drainage 0 30 Chest Tube Bilateral 0 30 Chest Tube Mediastinal 0 Urine 940 600 Other: Voiding Method Indwelling Catheter # Voids 1 # Bowel Movements 1 ABP, PAP, CO, CI - Last Documented Arterial Blood Pressure 124/58 Pulmonary Artery Pressure 20/7 Cardiac Output 7.4 Cardiac Index 4.2 - Labs CBC & Chem 7: 03/17/19 06:16 03/17/19 06:16 Labs: Abnormal Lab Results - Last 24 Hours (Table) 03/16/19 03/16/19 03/16/19 Range/Units 11:57 17:07 20:36 RBC (4.30-5.90) m/uL Hgb (13.0-17.5) gm/dL Hct (39.0-53.0) % Creatinine (0.66-1.25) mg/dL POC Glucose (mg/dL) 132 H 107 H 129 H (75-99) mg/dL Total Protein (6.3-8.2) g/dL Albumin (3.5-5.0) g/dL 03/17/19 03/17/19 03/17/19 Range/Units 06:09 06:16 06:16 RBC 2.82 L (4.30-5.90) m/uL Hgb 8.8 L (13.0-17.5) gm/dL Hct 25.9 L (39.0-53.0) % Creatinine 0.53 L (0.66-1.25) mg/dL POC Glucose (mg/dL) 110 H (75-99) mg/dL Total Protein 5.8 L (6.3-8.2) g/dL Albumin 3.3 L (3.5-5.0) g/dL
[2019-03-17 16:53] LABS: Glucose,Whole Blood 126 mg/dL (75-99)
--- NOTE | 2019-03-17 17:11 | P.PN ---
Subjective Progress Note Date: 03/17/19 This is a pleasant 58-year-old gentleman patient of Dr. Lozada. He has underlying history of COPD, hyperlipidemia, hypertension, and current tobacco use. Patient denies any history of CVA, no prior diabetes mellitus, He underwent CABG 5 vessel bypass on 03/14/2019, by Dr. Meyers, requiring sequential BUSH graft to the LAD, and first diagonal branch, left radial artery to the obtuse marginal branch of circumflex, saphenous vein graft to the PDA and PLV branch of RCA,. He is transferred fascial echo preop shows EF of 45-50%, follows with Dr. Obrien cardiology with a recent cardiac cath revealing calcified triple-vessel disease. Patient does not have any pulmonary doctor outside of the hospital, patient patient denies any Leg claudication, no previous CVA or stroke. He was extubated on 03/15/2019, few hours after CABG, and by the time he was evaluated by critical care medicine, he was already alert awake, and on CPAP machine, and was fully extubated. Currently on nasal cannula for O2 supple mentation 03/16: Patient is afebrile, heart rate 109, blood pressure 111/82, pulse ox 94% on room air. Repeat blood work shows WBC 10.2, hemoglobin 8.9, creatinine 0.43. Blood sugars run between 107 and 127. Patient is currently on scale NovoLog only, no history of diabetes. Patient is found sitting up in a chair. Shah catheter was removed this morning patient is urinated 2 following Lasix. He has had good urine output. Cordis has been removed as well as a line. One chest tube is been removed. Anticipate the 2 remaining chest tubes will be removed tomorrow. Patient did have a very large bowel movement this morning. He is using incentive spirometry and reaching 1000. Patient is complaining of not being able to sleep at home as well as during this hospitalization. Melatonin will be added. Hoarseness is improving. Review of Systems Review Of Systems: Constitutional: No fever, no chills, no night sweats. No weight change. No weakness, fatigue or lethargy. Reports daytime sleepiness. EENT: No headache. No blurred vision or double vision, no loss of vision. No loss of Hearing, no ringing in the ears, no dizziness. No nasal drainage or congestion. No epistaxis. No sore throat. Lungs: No shortness of breath, cough, no sputum production. No wheezing. Cardiovascular: Reports chest discomfort, no lower extremity edema. No palpitations. No paroxysmal nocturnal dyspnea. No orthopnea. No lightheadedness or dizziness. No syncopal episodes. Abdominal: No abdominal pain. No nausea, vomiting. No diarrhea. No constipation. No bloody or tarry stools.. No loss of appetite. Genitourinary: No dysuria, increased frequency, urgency. No urinary retention. Musculoskeletal: No myalgias. No muscle weakness, no gait dysfunction, no frequent falls. No back pain. No neck pain. Integumentary: No wounds, no lesions. No rash or pruritus. No unusual bruising. No change in hair or nails. Neurologic: No aphasia. No facial droop. No change in mentation. No head injury. No headache. No paralysis. No paresthesia. Psychiatric: No depression. No anxiety. No mood swings. Reports insomnia. Endocrine: No abnormal blood sugars. No weight change. No excessive sweating or thirst. No cold intolerance. Objective - Vital Signs Vital signs: Vital Signs Temp 97.6 F 03/17/19 08:00 Pulse 84 03/17/19 15:35 Resp 20 03/17/19 12:00 BP 102/57 03/17/19 12:00 Pulse Ox 98 03/17/19 12:00 Intake & Output 03/16/19 03/17/19 03/17/19 18:59 06:59 18:59 Intake Total 428 300 240 Output Total 940 630 Balance -512 -330 240 Weight 62.2 kg Intake: IV 78 0.9 Pressure Bags 18 Lactated Ringers 1,000 ml 60 @ 20 mls/hr IV .Q24H [facility] Rx#:[id number] Oral 350 300 240 Output: Chest Tube Drainage 0 30 Chest Tube Bilateral 0 30 Chest Tube Mediastinal 0 Urine 940 600 Other: Voiding Method Indwelling Catheter # Voids 1 2 # Bowel Movements 1 ABP, PAP, CO, CI - Last Documented Arterial Blood Pressure 124/58 Pulmonary Artery Pressure 20/7 Cardiac Output 7.4 Cardiac Index 4.2 - Exam General appearance: cooperative, no acute distress, patient resting in chair. - EENT Eyes: EOMI, PERRLA, dentition normal ENT: NA/AT, normal oropharynx (Hoarse voice) - Neck Neck: no lymphadenopathy, no normal ROM, no other, no rigidity, no stridor, no thyromegaly - Respiratory Respiratory: bilateral: CTA, negative: diminished, dullness, rales, rhonchi, wheezing - Cardiovascular Rhythm: regular Heart sounds: normal: S1, S2 Abnormal Heart Sounds: no systolic murmur, no diastolic murmur, no rub, no S3 Gallop, no S4 Gallop, no click, no other - Gastrointestinal General gastrointestinal: normal bowel sounds, soft - Integumentary Integumentary: decreased turgor, normal - Neurologic Neurologic: CNII-XII intact - Musculoskeletal Musculoskeletal: gait normal, strength equal bilaterally - Psychiatric Psychiatric: A&O x's 3, appropriate affect - Labs CBC & Chem 7: 03/17/19 06:16 03/17/19 06:16 Labs: Abnormal Lab Results - Last 24 Hours (Table) 03/16/19 03/16/19 03/17/19 Range/Units 17:07 20:36 06:09 RBC (4.30-5.90) m/uL Hgb (13.0-17.5) gm/dL Hct (39.0-53.0) % Creatinine (0.66-1.25) mg/dL POC Glucose (mg/dL) 107 H 129 H 110 H (75-99) mg/dL Total Protein (6.3-8.2) g/dL Albumin (3.5-5.0) g/dL 03/17/19 03/17/19 03/17/19 Range/Units 06:16 06:16 11:49 RBC 2.82 L (4.30-5.90) m/uL Hgb 8.8 L (13.0-17.5) gm/dL Hct 25.9 L (39.0-53.0) % Creatinine 0.53 L (0.66-1.25) mg/dL POC Glucose (mg/dL) 116 H (75-99) mg/dL Total Protein 5.8 L (6.3-8.2) g/dL Albumin 3.3 L (3.5-5.0) g/dL 03/17/19 Range/Units 16:51 RBC (4.30-5.90) m/uL Hgb (13.0-17.5) gm/dL Hct (39.0-53.0) % Creatinine (0.66-1.25) mg/dL POC Glucose (mg/dL) 126 H (75-99) mg/dL Total Protein (6.3-8.2) g/dL Albumin (3.5-5.0) g/dL Assessment and Plan Plan: 1. CAD with 3 vessel disease requiring CABG, POD #3 on March 14 2019, involving 5 vessel bypass graft. He had 5 vessel bypass graft, involving BUSH to the LAD and first diagonal, radial artery from the left to the obtuse marginal branch of circumflex, saphenous vein to the PDA and PLV of the RCA, preop RAMY shows EF of 45-50%, aspirin, Lipitor, Plavix, diltiazem 30 every 6 hours scheduled. Shah catheter, Cordis, a line and one chest tube removed. Anticipate 2 remaining chest tubes to be removed today. Continue incentive spirometry to reduce incidence of atelectasis and hospital-acquired pneumonia. 2. COPD, without any current exacerbation, patient is on prophylactic nebulizers, has an FEV1 of 69%, O2 supplementation next 3. Current tobacco use, patient's counseled, forced permanent smoking cessation program 4. Recent cervical stenosis surgery requiring cervical fusion, November 2018 no current radicular symptoms 5. Prior history of syncope, unclear etiology 6. Prediabetes with episodes of Hyperglycemia without a diagnosis of diabetes mellitus, hemoglobin A1c was 6.1, Accu-Cheks before meals and at bedtime with NovoLog scale 7. Hyperlipidemia, on statins, recent LDL was 100 8. Current chronic hoarse voice since cervical surgery, continue to monitor, no current symptoms of pain 9. DVT prophylaxis iv heparin sc 7. GI prophylaxis protonix Discharge plan: [facility] for inpatient rehab on Tuesday. Await ing insurance authorization. Impression and plan of care have been directed as dictated by the signing physician. Susan Hannah nurse practitioner acting as scribe for signing physician.
[2019-03-17 20:46] LABS: Glucose,Whole Blood 133 mg/dL (75-99)
[2019-03-17] MEDS: MELATONIN 3 MG TABLET PO SCH (21:20)
[2019-03-17] MEDS: SENNOSIDES-DOCUSATE SODIUM 1 EACH TAB PO SCH (21:29)
[2019-03-18 06:08] LABS: Glucose,Whole Blood 118 mg/dL (75-99)
[2019-03-18 06:16] LABS: HCT 25.2 % (39.0-53.0); HGB 8.5 gm/dL (13.0-17.5); MCH 31.3 pg (25.0-35.0); MCHC 33.9 g/dL (31.0-37.0); MCV 92.2 fL (80.0-100.0); Mean Platelet Volume 7.5; Platelet Count 227 k/uL (150-450); RBC 2.73 m/uL (4.30-5.90); RDW 13.4 % (11.5-15.5); WBC 8.7 k/uL (3.8-10.6)
[2019-03-18] MEDS: INSULIN ASPART (NovoLOG) 100 UNIT/ML VIAL SQ SCH ×4 (06:21→20:31)
[2019-03-18 06:27] LABS: ALT 35 U/L (4-49); AST 54 U/L (17-59); African American GFR (CKD) >90 (>60 ml/min/1.73 sqM); Albumin 3.2 g/dL (3.5-5.0); Alkaline Phosphatase 61 U/L (38-126); Anion Gap 6 mmol/L; Blood Urea Nitrogen 14 mg/dL (9-20); Calcium 8.7 mg/dL (8.4-10.2); Carbon Dioxide 30 mmol/L (22-30); Chloride 104 mmol/L (98-107); Glucose 103 mg/dL (74-99); Non-African American GFR(CKD) >90 (>60 ml/min/1.73 sqM); Potassium 4.5 mmol/L (3.5-5.1); Sodium 140 mmol/L (137-145); Total Bilirubin 0.7 mg/dL (0.2-1.3); Total Protein 5.7 g/dL (6.3-8.2)
[2019-03-18] MEDS: KETOROLAC 30 MG/ML 1 ML VIAL IVP SCH ×4 (06:27→20:46)
[2019-03-18] MEDS: DILTIAZEM ORAL 30 MG TAB PO SCH (06:27)
[2019-03-18] MEDS: HEPARIN SODIUM,PORCINE 5,000 UNIT/ML 1 ML VIAL SQ SCH ×3 (06:27→20:41)
[2019-03-18] MEDS: PANTOPRAZOLE 40 MG TABLET PO SCH (06:27)
--- NOTE | 2019-03-18 06:47 | XR ---
EXAMINATION TYPE: XR chest 2V DATE OF EXAM: 03/18/2019 HISTORY: Postoperative CABG. REFERENCE: Previous study dated 03/17/2019 there has been a previous. FINDINGS: There is been a previous ACDF of the lower cervical spine. There has been previous internal fixation of the left clavicle. There is been a midline sternotomy. The lungs are overinflated. There are small residual apical pneumothoraces. Both chest tubes have bee n removed. There is a left-sided pleural reaction, likely representing fluid. The heart is not enlarg ed. IMPRESSION: 1. COPD. 2. SMALL, RESIDUAL APICAL PNEUMOTHORACES BILATERALLY.
[2019-03-18] MEDS: IPRATROPIUM-ALBUTEROL 3 ML NEB INHALATION SCH ×4 (07:41→19:50)
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
[2019-03-18] MEDS: CLOPIDOGREL 75 MG TAB PO SCH (09:17)
[2019-03-18] MEDS: ASPIRIN 325 MG TAB PO SCH (09:17)
[2019-03-18] MEDS: ATORVASTATIN 40 MG TAB PO SCH (09:17)
[2019-03-18] MEDS: FOLIC ACID 1 MG TAB PO SCH (09:17)
[2019-03-18] MEDS: THIAMINE 100 MG TAB PO SCH (09:17)
[2019-03-18] MEDS: DILTIAZEM CD 120 MG CAP.ER.24H PO SCH (09:17)
[2019-03-18] MEDS: METOPROLOL TARTRATE 25 MG TAB PO SCH ×3 (09:17→20:41)
--- NOTE | 2019-03-18 09:31 | P.PN ---
Subjective Progress Note Date: 03/18/19 This is a pleasant 58-year-old gentleman patient of Dr. Lozada. He has underlying history of COPD, hyperlipidemia, hypertension, and current tobacco use. Patient denies any history of CVA, no prior diabetes mellitus, He underwent CABG 5 vessel bypass on 03/14/2019, by Dr. Meyers, requiring sequential BUSH graft to the LAD, and first diagonal branch, left radial artery to the obtuse marginal branch of circumflex, saphenous vein graft to the PDA and PLV branch of RCA,. He is transferred fascial echo preop shows EF of 45-50%, follows with Dr. Obrien cardiology with a recent cardiac cath revealing calcified triple-vessel disease. Patient does not have any pulmonary doctor outside of the hospital, patient patient denies any Leg claudication, no previous CVA or stroke. He was extubated on 03/15/2019, few hours after CABG, and by the time he was evaluated by critical care medicine, he was already alert awake, and on CPAP machine, and was fully extubated. Currently on nasal cannula for O2 supplementation 03/17: This is a 58-year-old gentleman status post 5 vessel bypass surgery. Patient has been hemodynamically stable and transferred out of the intensive care unit yesterday. Urine output has been adequate. Patient is coughing some sputum. He is using his incentive spirometry. Patient remains with 2 chest tubes which are scheduled to be removed today. He has been afebrile, WBC 9.3, hemoglobin 8.8, creatinine 0.53, sodium 130, potassium 3.4. Patient denies any new complaints. 03/18: Patient is seen in his room on the cardiac stepdown unit. He is denying having any chest pain or shortness of breath. He denies any lightheadedness or dizziness. Repeat lab work reveals white count of 8.7, hemoglobin 8.5, creatinine 0.53. Patient states that he will be discharged home later today. Physical examination: Gen: This is a thin 58-year-old male. He is sitting up in a chair and appears to be in no acute distress. VS: Blood pressure 109/68, heart rate 91, pulse ox 96% on room air. HEENT: Head is atraumatic, normocephalic. Pupils equal, round. Sclerae is anicteric. NECK: Supple. No lymphadenopathy. No thyromegaly. LUNGS: Few scattered rhonchi. No intercostal retractions. HEART: Regular rate and rhythm. No murmur. ABDOMEN: Soft. Bowel sounds are present. No masses. No tenderness. EXTREMITIES: No pedal edema. No calf tenderness. Dorsalis pedis 1+ bilaterally. NEUROLOGICAL: Patient is awake, alert and oriented x3. Cranial nerves 2 through 12 are grossly intact. Assessment: 5 vessel CABG Cervical stenosis COPD Current tobacco use and dependence Hyperlipidemia Possible prediabetes Plan: Continue aspirin, Lipitor, Plavix Continue Cardizem CD 120mg daily, Lopressor 25 mg 3 times daily She is scheduled for discharge home today. Follow-up with Dr. Lambert. Further recommendations to follow based upon clinical course Nurse practitioner note has been reviewed, I agree with documented findings and plan of care. Patient was seen and examined. Objective - Vital Signs Vital signs: Vital Signs Temp 97.9 F 03/18/19 04:00 Pulse 77 03/18/19 07:51 Resp 18 03/18/19 04:00 BP 100/59 03/18/19 04:00 Pulse Ox 98 03/18/19 04:00 Intake & Output 03/17/19 03/18/19 03/18/19 18:59 06:59 18:59 Intake Total 360 Output Total 1050 Balance 360 -1050 Weight 62.9 kg Intake: Oral 360 Output: Urine 1050 Other: # Voids 2 ABP, PAP, CO, CI - Last Documented Arterial Blood Pressure 124/58 Pulmonary Artery Pressure 20/7 Cardiac Output 7.4 Cardiac Index 4.2 - Labs CBC & Chem 7: 03/18/19 05:56 03/18/19 05:56 Labs: Abnormal Lab Results - Last 24 Hours (Table) 03/17/19 03/17/19 03/17/19 Range/Units 11:49 16:51 20:44 RBC (4.30-5.90) m/uL Hgb (13.0-17.5) gm/dL Hct (39.0-53.0) % Creatinine (0.66-1.25) mg/dL Glucose (74-99) mg/dL POC Glucose (mg/dL) 116 H 126 H 133 H (75-99) mg/dL Total Protein (6.3-8.2) g/dL Albumin (3.5-5.0) g/dL 03/18/19 03/18/19 03/18/19 Range/Units 05:56 05:56 06:04 RBC 2.73 L (4.30-5.90) m/uL Hgb 8.5 L (13.0-17.5) gm/dL Hct 25.2 L (39.0-53.0) % Creatinine 0.53 L (0.66-1.25) mg/dL Glucose 103 H (74-99) mg/dL POC Glucose (mg/dL) 118 H (75-99) mg/dL Total Protein 5.7 L (6.3-8.2) g/dL Albumin 3.2 L (3.5-5.0) g/dL
--- NOTE | 2019-03-18 10:55 | P.PN ---
Subjective Progress Note Date: 03/18/19 Principal diagnosis: CABG Patient continued to be hemodynamically stable no major events reported by nursing staff patient is tolerating diet denying chest pain shortness breath n ausea vomiting dumping dizziness lightheadedness and ready for discharge Objective - Vital Signs Vital signs: Vital Signs Temp 98.0 F 03/18/19 08:00 Pulse 91 03/18/19 08:00 Resp 20 03/18/19 08:00 BP 109/68 03/18/19 08:00 Pulse Ox 96 03/18/19 08:00 Intake & Output 03/17/19 03/18/19 03/18/19 18:59 06:59 18:59 Intake Total 360 Output Total 1050 Balance 360 -1050 Weight 62.9 kg Intake: Oral 360 Output: Urine 1050 Other: # Voids 2 ABP, PAP, CO, CI - Last Documented Arterial Blood Pressure 124/58 Pulmonary Artery Pressure 20/7 Cardiac Output 7.4 Cardiac Index 4.2 - Exam Gen.: in stated age, no acute distress Heart: Normal S1-S2 Lungs: Diminished bilaterally Abdomen: Soft, no tenderness, positive bowel sounds in all 4 quadrant no guarding or rebound Skin: No new rash Psych: Alert and oriented 3 Neuro: No focal deficit - Labs CBC & Chem 7: 03/18/19 05:56 03/18/19 05:56 Labs: Abnormal Lab Results - Last 24 Hours (Table) 03/17/19 03/17/19 03/17/19 Range/Units 11:49 16:51 20:44 RBC (4.30-5.90) m/uL Hgb (13.0-17.5) gm/dL Hct (39.0-53.0) % Creatinine (0.66-1.25) mg/dL Glucose (74-99) mg/dL POC Glucose (mg/dL) 116 H 126 H 133 H (75-99) mg/dL Total Protein (6.3-8.2) g/dL Albumin (3.5-5.0) g/dL 03/18/19 03/18/19 03/18/19 Range/Units 05:56 05:56 06:04 RBC 2.73 L (4.30-5.90) m/uL Hgb 8.5 L (13.0-17.5) gm/dL Hct 25.2 L (39.0-53.0) % Creatinine 0.53 L (0.66-1.25) mg/dL Glucose 103 H (74-99) mg/dL POC Glucose (mg/dL) 118 H (75-99) mg/dL Total Protein 5.7 L (6.3-8.2) g/dL Albumin 3.2 L (3.5-5.0) g/dL Assessment and Plan Assessment: 1. Coronary artery disease status post CABG. 2. Hyperlipidemia. 3. Anemia of blood loss. 4. Pre-diabetes. 5. Tobacco dependency. Patient is stable from the medical standpoint, discharge planning per primary team recommendation, plan discussed with nursing staff and patient at the bedside
[2019-03-18 12:00] LABS: Glucose,Whole Blood 81 mg/dL (75-99)
[2019-03-18 17:01] LABS: Glucose,Whole Blood 99 mg/dL (75-99)
[2019-03-18 20:27] LABS: Glucose,Whole Blood 116 mg/dL (75-99)
[2019-03-18] MEDS: MELATONIN 3 MG TABLET PO SCH (20:41)
[2019-03-18] MEDS: SENNOSIDES-DOCUSATE SODIUM 1 EACH TAB PO SCH (20:48)
[2019-03-19 06:02] LABS: HGB 8.7 gm/dL (13.0-17.5); MCH 30.8 pg (25.0-35.0); MCHC 33.4 g/dL (31.0-37.0); MCV 92.2 fL (80.0-100.0); Platelet Count 269 k/uL (150-450); RBC 2.82 m/uL (4.30-5.90); RDW 13.4 % (11.5-15.5); WBC 7.6 k/uL (3.8-10.6)
[2019-03-19 06:15] LABS: Glucose,Whole Blood 106 mg/dL (75-99)
[2019-03-19 06:16] LABS: African American GFR (CKD) >90 (>60 ml/min/1.73 sqM); Anion Gap 4 mmol/L; Blood Urea Nitrogen 12 mg/dL (9-20); Carbon Dioxide 29 mmol/L (22-30); Chloride 103 mmol/L (98-107); Glucose 97 mg/dL (74-99); Non-African American GFR(CKD) >90 (>60 ml/min/1.73 sqM); Sodium 136 mmol/L (137-145)
[2019-03-19] MEDS: INSULIN ASPART (NovoLOG) 100 UNIT/ML VIAL SQ SCH ×2 (06:29→12:32)
[2019-03-19] MEDS: KETOROLAC 30 MG/ML 1 ML VIAL IVP SCH ×2 (06:29→12:26)
[2019-03-19] MEDS: HEPARIN SODIUM,PORCINE 5,000 UNIT/ML 1 ML VIAL SQ SCH (06:32)
[2019-03-19] MEDS: PANTOPRAZOLE 40 MG TABLET PO SCH (06:32)
--- NOTE | 2019-03-19 07:50 | XR ---
EXAMINATION TYPE: XR chest 2V DATE OF EXAM: 03/19/2019 COMPARISON: Chest x-ray from yesterday and older studies. HISTORY: Postoperative CABG. TECHNIQUE: Frontal and lateral views of the chest are obtained. FINDINGS: Tiny biapical pneumothoraces on prior study less well seen on current study. Background ch ronic emphysematous change with small to tiny bilateral pleural effusions on current study slightly l arger right lung base versus prior. Patchy right greater than left bibasilar atelectasis and/or infil trate is seen. Post-CABG changes with mediastinal clips and sternal wires. The cardiac silhouette si ze is stable and within normal limits. Fusion plate lower cervical spine along with over left clavicl e redemonstrated. IMPRESSION: No pneumothorax identified on current study. Background chronic emphysematous change red emonstrated. Small tiny right greater than left pleural effusions slightly larger versus prior with a ssociated right greater than left by basilar atelectasis and/or infiltrate.
[2019-03-19] MEDS: ASPIRIN 325 MG TAB PO SCH (08:16)
[2019-03-19] MEDS: ATORVASTATIN 40 MG TAB PO SCH (08:16)
[2019-03-19] MEDS: CLOPIDOGREL 75 MG TAB PO SCH (08:16)
[2019-03-19] MEDS: THIAMINE 100 MG TAB PO SCH (08:17)
[2019-03-19] MEDS: METOPROLOL TARTRATE 25 MG TAB PO SCH (08:17)
[2019-03-19] MEDS: FOLIC ACID 1 MG TAB PO SCH (08:17)
[2019-03-19] MEDS: DILTIAZEM CD 120 MG CAP.ER.24H PO SCH (08:17)
[2019-03-19] MEDS: IPRATROPIUM-ALBUTEROL 3 ML NEB INHALATION SCH ×2 (09:26→13:19)
[2019-03-19 10:42] VITALS: RESP 16
[2019-03-19 11:54] LABS: Glucose,Whole Blood 147 mg/dL (75-99)
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
--- NOTE | 2019-03-19 16:17 | P.PN ---
Subjective This is Kim Tyler PA-C dictating a progress note on this patient The patient was interviewed and examined by me as well as by Dr. Heard Case discussed with Dr. 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 Lambert HPI/interval history Patient is a 58-year-old male with a history of COPD, dyslipidemia, hypertension, and CAD who underwent CABG 5 on 03/14/[address] Meyers. Patient has done well postoperatively. Patient seen and examined sitting in the chair. States he is ready to go home. Denies any chest pain or shortness of breath. No dizziness or syncope. EXAMINATION Temperature 97.3F, pulse in the 80s, respirations 16, blood pressure 108/69, oxygen saturation 98% on room air Patient seen and examined sitting in the chair, no acute distress Lungs clear to auscultation bilaterally Heart is regular, no audible murmurs No lower extremity edema REVIEW OF LABS, ECG WBC 7.6, hemoglobin 8.7, platelets 269, potassium 4.0, BUN 12, creatinine 0.47 Objective - Vital Signs Vital signs: Vital Signs Temp 97.3 F L 03/19/19 08:05 Pulse 89 03/19/19 08:05 Resp 16 03/19/19 08:05 BP 108/69 03/19/19 08:05 Pulse Ox 98 03/19/19 08:05 Intake & Output 03/18/19 03/19/19 03/19/19 18:59 06:59 18:59 Intake Total 480 240 330 Output Total 300 1490 Balance 180 -1250 330 Weight 60.9 kg Intake: Oral 480 240 330 Output: Urine 1490 Stool 300 Other: Voiding Method Urinal # Voids 1 0 # Bowel Movements 0 ABP, PAP, CO, CI - Last Documented Arterial Blood Pressure 124/58 Pulmonary Artery Pressure 20/7 Cardiac Output 7.4 Cardiac Index 4.2 - Labs CBC & Chem 7: 03/19/19 05:29 03/19/19 05:29 Labs: Abnormal Lab Results - Last 24 Hours (Table) 03/18/19 03/19/1920 Range/Units 20:25 05:29 05:29 RBC 2.82 L (4.30-5.90) m/uL Hgb 8.7 L (13.0-17.5) gm/dL Hct 26.0 L (39.0-53.0) % Sodium 136 L (137-145) mmol/L Creatinine 0.47 L (0.66-1.25) mg/dL POC Glucose (mg/dL) 116 H (75-99) mg/dL 03/19/19 03/19/19 Range/Units 06:14 11:50 RBC (4.30-5.90) m/uL Hgb (13.0-17.5) gm/dL Hct (39.0-53.0) % Sodium (137-145) mmol/L Creatinine (0.66-1.25) mg/dL POC Glucose (mg/dL) 106 H 147 H (75-99) mg/dL
[2019-03-19 16:35] VITALS: BP 105/73; PULSE 85; TEMP 97.5
--- NOTE | 2019-03-19 16:39 | P.PN ---
Subjective Progress Note Date: 03/19/19 This is a pleasant 58-year-old gentleman patient of Dr. Lozada. He has underlying history of COPD, hyperlipidemia, hypertension, and current tobacco use. Patient denies any history of CVA, no prior diabetes mellitus, He underwent CABG 5 vessel bypass on 03/14/2019, by Dr. Meyers, requiring sequential BUSH graft to the LAD, and first diagonal branch, left radial artery to the obtuse marginal branch of circumflex, saphenous vein graft to the PDA and PLV branch of RCA,. He is transferred fascial echo preop shows EF of 45-50%, follows with Dr. Obrien cardiology with a recent cardiac cath revealing calcified triple-vessel disease. Patient does not have any pulmonary doctor outside of the hospital, patient patient denies any Leg claudication, no previous CVA or stroke. He was extubated on 03/15/2019, few hours after CABG, and by the time he was evaluated by critical care medicine, he was already alert awake, and on CPAP machine, and was fully extubated. Currently on nasal cannula for O2 supplementation 03/16: Patient is afebrile, heart rate 109, blood pressure 111/82, pulse ox 94% on room air. Repeat blood work shows WBC 10.2, hemoglobin 8.9, creatinine 0.43. Blood sugars run between 107 and 127. Patient is currently on scale NovoLog only, no history of diabetes. Patient is found sitting up in a chair. Shah catheter was removed this morning patient is urinated 2 following Lasix. He has had good urine output. Cordis has been removed as well as a line. One chest tube is been removed. Anticipate the 2 remaining chest tubes will be removed tomorrow. Patient did have a very large bowel movement this morning. He is using incentive spirometry and reaching 1000. Patient is complaining of not being able to sleep at home as well as during this hospitalization. Melatonin will be added. Hoarseness is improving. 03/27 patient examined bedside. He is comfortable denies any chest pain, shortness of breath, nausea vomiting, change in bowel habits. Acute cholecystitis a temp of 97.3 pulse 89 respiratory rate 16 blood pressure 108/69. his sister hemoglobin of 8.7 hematocrit 26 sodium 136 creatinine 0.47 blood sugar controlled at 106-147 no HbA1c in the chart. She is currently off oxygen and will continue with cardiothoracic surgery as outpatient. Patient will wear Heart Hugger all the time. Review of Systems Review Of Systems: Constitutional: No fever, no chills, no night sweats. No weight change. No weakness, fatigue or lethargy. Reports daytime sleepiness. EENT: No headache. No blurred vision or double vision, no loss of vision. No loss of Hearing, no ringing in the ears, no dizziness. No nasal drainage or congestion. No epistaxis. No sore throat. Lungs: No shortness of breath, cough, no sputum production. No wheezing. Cardiovascular: Reports chest discomfort, no lower extremity edema. No palpitations. No paroxysmal nocturnal dyspnea. No orthopnea. No lightheadedness or dizziness. No syncopal episodes. Abdominal: No abdominal pain. No nausea, vomiting. No diarrhea. No constipation. No bloody or tarry stools.. No loss of appetite. Genitourinary: No dysuria, increased frequency, urgency. No urinary retention. Musculoskeletal: No myalgias. No muscle weakness, no gait dysfunction, no frequent falls. No back pain. No neck pain. Integumentary: No wounds, no lesions. No rash or pruritus. No unusual bruising. No change in hair or nails. Neurologic: No aphasia. No facial droop. No change in mentation. No head injury. No headache. No paralysis. No paresthesia. Psychiatric: No depression. No anxiety. No mood swings. Reports insomnia. Endocrine: No abnormal blood sugars. No weight change. No excessive sweating or thirst. No cold intolerance. Objective - Vital Signs Vital signs: Vital Signs Temp 97.3 F L 03/19/19 08:05 Pulse 89 03/19/19 08:05 Resp 16 03/19/19 08:05 BP 108/69 03/19/19 08:05 Pulse Ox 98 03/19/19 08:05 Intake & Output 03/18/19 03/19/19 03/19/19 18:59 06:59 18:59 Intake Total 480 240 90 Output Total 300 1490 Balance 180 -1250 90 Weight 60.9 kg Intake: Oral 480 240 90 Output: Urine 1490 Stool 300 Other: Voiding Method Urinal # Voids 1 ABP, PAP, CO, CI - Last Documented Arterial Blood Pressure 124/58 Pulmonary Artery Pressure 20/7 Cardiac Output 7.4 Cardiac Index 4.2 - Exam - Constitutional General appearance: cooperative, no acute distress, thin - EENT Eyes: anicteric sclerae, PERRLA, normal appearance ENT: hearing grossly normal - Neck Neck: no lymphadenopathy, normal ROM, no other, no rigidity, no stridor, no thyromegaly - Respiratory Respiratory: bilateral: CTA, negative: diminished, dullness, rales, rhonchi - Cardiovascular Rhythm: regular Heart sounds: normal: S1, S2 Abnormal Heart Sounds: no systolic murmur, no diastolic murmur, no rub, no S3 Gallop, no S4 Gallop, central incision without any drainage - Gastrointestinal General gastrointestinal: normal bowel sounds, soft nontender - Integumentary Integumentary: no rash - Neurologic Neurologic: CNII-XII intact - Musculoskeletal Musculoskeletal: gait normal, strength equal bilaterally - Psychiatric Psychiatric: A&O x's 3, appropriate affect - Labs CBC & Chem 7: 03/19/19 05:29 03/19/19 05:29 Labs: Abnormal Lab Results - Last 24 Hours (Table) 03/18/19 03/19/19 03/19/19 Range/Units 20:25 05:29 05:29 RBC 2.82 L (4.30-5.90) m/uL Hgb 8.7 L (13.0-17.5) gm/dL Hct 26.0 L (39.0-53.0) % Sodium 136 L (137-145) mmol/L Creatinine 0.47 L (0.66-1.25) mg/dL POC Glucose (mg/dL) 116 H (75-99) mg/dL 03/19/19 Range/Units 06:14 RBC (4.30-5.90) m/uL Hgb (13.0-17.5) gm/dL Hct (39.0-53.0) % Sodium (137-145) mmol/L Creatinine (0.66-1.25) mg/dL POC Glucose (mg/dL) 106 H (75-99) mg/dL Assessment and Plan Plan: 1. CAD with 3 vessel disease requiring CABG, POD #3 on March 14 2019, involving 5 vessel bypass graft. He had 5 vessel bypass graft, involving BUSH to the LAD and first diagonal, radial artery from the left to the obtuse marginal branch of circumflex, saphenous vein to the PDA and PLV of the RCA, preop RAMY shows EF of 45-50%, aspirin, Lipitor, Plavix, diltiazem 30 every 6 hours scheduled. Continue incentive spirometry to reduce incidence of atelectasis and hospital-acquired pneumonia. 2. COPD, without any current exacerbation, patient is on prophylactic nebulizers, has an FEV1 of 69%, O2 supplementation next 3. Current tobacco use, patient's counseled, forced permanent smoking cessation program 4. Recent cervical stenosis surgery requiring cervical fusion, November 2018 no current radicular symptoms 5. Prior history of syncope, unclear etiology 6. Prediabetes with episodes of Hyperglycemia without a diagnosis of diabetes mellitus, hemoglobin A1c was 6.1 7. Hyperlipidemia, on statins, recent LDL was 100 8. Current chronic hoarse voice since cervical surgery 9. DVT prophylaxis iv heparin sc 7. GI prophylaxis protonix Discharge plan: Home with home care
== END 2019-03-19 15:50 | disposition home health service (06) | DRG 236 ==
LOC: 2ORMAIN 05:42 → 2SICU 13:47 → 3SCARD 03-16 19:13
PROVIDERS: ADMIT Thoracic Surgery (Cardiothoracic Vascular Surgery); ATTEND Thoracic Surgery (Cardiothoracic Vascular Surgery)
PROC: 03BC3ZZ Excision of Left Radial Artery, Percutaneous Approach (ICD-10-PCS; 2019-03-14)
PROC: 06BQ4ZZ Excision of Left Saphenous Vein, Percutaneous Endoscopic Approach (ICD-10-PCS; 2019-03-14)
PROC: B246ZZ4 Ultrasonography of Right and Left Heart, Transesophageal (ICD-10-PCS; 2019-03-14)
PROC: 5A09357 Assistance with Respiratory Ventilation, Less than 24 Consecutive Hours, Continuous Positive Airway Pressure (ICD-10-PCS; 2019-03-14)
PROC: 02100Z9 Bypass Coronary Artery, One Artery from Left Internal Mammary, Open Approach (ICD-10-PCS; principal; 2019-03-14 08:00)
PROC: 02100AW Bypass Coronary Artery, One Artery from Aorta with Autologous Arterial Tissue, Open Approach (ICD-10-PCS; 2019-03-14 08:00)
PROC: 021209W Bypass Coronary Artery, Three Arteries from Aorta with Autologous Venous Tissue, Open Approach (ICD-10-PCS; 2019-03-14 08:00)
DX: I25.10 Atherosclerotic heart disease of native coronary artery without angina pectoris (principal); J98.11 Atelectasis; D62 Acute posthemorrhagic anemia; I50.1 Left ventricular failure, unspecified; J44.9 Chronic obstructive pulmonary disease, unspecified; E78.5 Hyperlipidemia, unspecified; Z71.6 Tobacco abuse counseling; F17.210 Nicotine dependence, cigarettes, uncomplicated; R73.03 Prediabetes; Z98.1 Arthrodesis status; I11.0 Hypertensive heart disease with heart failure; Z79.82 Long term (current) use of aspirin; Z79.899 Other long term (current) drug therapy
CPT/HCPCS: 71045; 71046; 80048; 80053; 82330; 82805; 83735; 84132; 85025; 85027; 85520; 85610; 85730; 86850; 86891; 86900; 86901; 86920; 94002; 94640; 94760

== ENCOUNTER 2024-01-14 16:54 | Emergency (ER) | payer MEDICARE ==
[2024-01-14 17:14] VITALS: RESP 18
--- NOTE | 2024-01-14 17:29 | ED ---
General Adult HPI - General Chief complaint: Syncope Stated complaint: Syncope Time Seen by Provider: 01/14/24 17:15 Source: patient, EMS, RN notes reviewed, old records reviewed Mode of arrival: EMS Limitations: no limitations - History of Present Illness Initial comments: Patient is a 63-year-old male who presents emergency department complaining of a syncopal episode. Apparently patient had a witnessed syncopal episode that lasted a few minutes at his [facility] care where he lives. Was sitting in a chair when it occurred. Did not injure himself. Patient did have urinary incontinence. Apparently there was no signs of tonic-clonic movement or seizure activity otherwise. Patient is a history of CABG, marijuana use. States he is compliant with his medications. Denies any other drug or alcohol use. States he was just sitting there watching TV before and felt fine after. Not exactly recall the event. Denies any chest pain, shortness of breath, abdominal pain, nausea, vomiting, joint pain, injuries. States he has been having a mild cough lately but no other acute complaints at this time. Is fully alert and oriented. Presents for further evaluation. - Related Data Home Medications Medication Instructions Recorded Confirmed Aspirin EC [Ecotrin Low Dose] 81 mg PO DAILY 01/14/24 01/14/24 Atorvastatin [Lipitor] 80 mg PO HS 01/14/24 01/14/24 Cholecalciferol [Vitamin D3 (25 25 mcg PO DAILY 01/14/24 01/14/24 Mcg = 1000 Iu)] Losartan [Cozaar] 25 mg PO DAILY 01/14/24 01/14/24 Metoprolol Succinate (ER) [Toprol 25 mg PO DAILY 01/14/24 01/14/24 Xl] Allergies Allergy/AdvReac Type Severity Reaction Status Date / Time No Known Allergies Allergy Verified 01/14/24 18:05 Review of Systems ROS Statement: Those systems with pertinent positive or pertinent negative responses have been documented in the HPI. Review of Systems: CONST: Denies fever EYES: Denies blurry vision ENT: Denies nasal congestion C/V: Denies Chest pain RESP: Denies shortness of breath GI: Denies abdominal pain : Denies dysuria SKIN: Denies rash. MSK: Denies joint pain. NEURO: Denies headache ROS Other: All systems not noted in ROS Statement are negative. Past Medical History Past Medical History: No Reported History Additional Past Medical History / Comment(s): head injury History of Any Multi-Drug Resistant Organisms: None Reported Past Surgical History: Coronary Bypass/CABG, Orthopedic Surgery Additional Past Surgical History / Comment(s): CABG 2019, cervical spinal fusion Past Anesthesia/Blood Transfusion Reactions: No Reported Reaction Past Psychological History: No Psychological Hx Reported Smoking Status: Current every day smoker Past Alcohol Use History: None Reported Past Drug Use History: Marijuana - Past Family History Mother Family Medical History: No Reported History, Cancer (Throat cancer) Father Family Medical History: Unable to Obtain Brother(s) Family Medical History: No Reported History Sister(s) Family Medical History: No Reported History Daughter(s) Family Medical History: Unable to Obtain (Unknown history for daughters, not in contact) Son(s) Family Medical History: Unable to Obtain (Unknown history, NO CONTACT) General Exam - General Exam Comments Initial Comments: General: Appears in no acute distress. HEAD: Normal with no signs of head trauma. EYES: PERRLA, EOMI, conjunctiva normal, no discharge. Pupils are 2 mm and equal bilaterally. ENT: Hearing grossly intact, normal oropharynx. RESPIRATORY: Clear breath sounds bilaterally. No wheezes, rales, or rhonchi. C/V: Regular rate and rhythm. S1 and S2 auscultated, no edema, peripheral pulses 2+ and intact throughout ABD: Abd is soft, nontender, nondistended EXT: Normal range of motion, no obvious deformity SKIN: No rashes or lesions observed on exposed skin. NEURO: Alert and oriented x 4. Cranial nerves II-XII intact. No focal sensory or strength deficits. NIH of 0. GCS of 15. Limitations: no limitations Course Vital Signs 01/14/24 01/14/24 01/14/24 17:02 17:30 18:00 Temperature 97.7 F Pulse Rate 68 77 Respiratory 18 Rate Blood Pressure 105/68 115/72 98/59 O2 Sat by Pulse 89 L Oximetry 01/14/24 01/14/24 01/14/24 18:30 19:00 19:29 Temperature 97.9 F Pulse Rate 77 75 Respiratory Rate Blood Pressure 96/63 O2 Sat by Pulse 100 100 Oximetry 01/14/24 20:50 Temperature Pulse Rate 70 Respiratory 18 Rate Blood Pressure 100/66 O2 Sat by Pulse 94 L Oximetry Medical Decision Making - Medical Decision Making Was pt. sent in by a medical professional or institution (, [facility], DATA SUPPORT ANALYST, urgent care, hospital, or shelter...) When possible be specific @ -No Did you speak to anyone other than the patient for history (EMS, parent, family, police, friend...)? What history was obtained from this source @ -No Did you review nursing and triage notes (agree or disagree)? Why? @ -I reviewed and agree with nursing and triage notes Were old charts reviewed (outside hosp., previous admission, EMS record, old EKG, old radiological studies, urgent care reports/EKG's, shelter records)? Report findings @ -No old charts were reviewed Differential Diagnosis (chest pain, altered mental status, abdominal pain women, abdominal pain men, vaginal bleeding, weakness, fever, dyspnea, syncope, headache, dizziness, GI bleed, back pain, seizure, CVA, palpatations, mental health, musculoskeletal)? @ -Differential Syncope: Valvular disease, hypertrophic cardiomyopathy, pulmonary embolism, tamponade, tachycardia, bradycardia, TN, hypovolemia, hemorrhage, dissection, anemia, intracranial hemorrhage, seizure, hypoglycemia, carbon monoxide poisoning, this is not meant to be an all-inclusive list. EKG interpreted by me (3pts min.). @ -As above X-rays interpreted by me (1pt min.). @ -Chest x-ray reveals no obvious acute cardiopulmonary process. CT interpreted by me (1pt min.). @ -CT brain reveals no obvious acute intracranial process. U/S interpreted by me (1pt. min.). @ -None done What testing was considered but not performed or refused? (CT, X-rays, U/S, labs)? Why? @ -None What meds were considered but not given or refused? Why? @ -None Did you discuss the management of the patient with other professionals (professionals i.e. , [facility], DATA SUPPORT ANALYST, lab, RT, psych nurse, social contact worker, marzipan molder, teacher, mobile patrol officer, case advocate)? Give summary @ -No Was smoking cessation discussed for >3mins.? @ -No Was critical care preformed (if so, how long)? @ -No Were there social determinants of health that impacted care today? How? (Homelessness, low income, unemployed, alcoholism, drug addiction, transportation, low edu. Level, literacy, decrease access to med. care, longterm, rehab)? @ -No Was there de-escalation of care discussed even if they declined (Discuss DNR or withdrawal of care, Hospice)? DNR status @ -No What co-morbidities impacted this encounter? (DM, HTN, Smoking, COPD, CAD, Cancer, CVA, ARF, Chemo, Hep., AIDS, mental health diagnosis, sleep apnea, morbid obesity)? @ -None Was patient admitted / discharged? Hospital course, mention meds given and route, prescriptions, significant lab abnormalities, going to OR and other pertinent info. @ -Based on the patient's presentation and physical exam, patient presents with a suspected syncopal episode. And urinary incontinence as well. We will obtain broad workup including CT of the brain. Patient will be treated with IV fluids. Apparently patient was hypotensive initially when seen by EMS and started on a fluid bolus which resolved his hypotension. Currently is resting with no complaints. Presents for further evaluation. Vital signs are currently within acceptable limits. EKG shows no obvious acute ischemic process. Imaging is unremarkable. Patient's laboratory studies are all within acceptable limits. Lactic acid is within normal limits, indicating unlikely to have been a seizure at home. Still pending urine. On reevaluation, patient is relatively unchanged. I still recommended we check a urine on him which he was in agreement with. He will be administered additional IV fluids as well as given oral water. Patient's blood pressure remains within acceptable limits at this time. He remains asymptomatic. He has no complaints and is resting comfortably. Patient's blood pressure remains stable as well as vitals. Urinalysis and UDS unremarkable. I discussed with the patient. He would like to go home. I believe this is reasonable. He will be discharged at this time. Recommended follow-up with his PCP/gang bore operator in the next 1 to 3 days. He was in agreement this plan. Strict return precautions discussed. I instructed the patient to follow up with their PCP in the next 1-3 days. I explained that the patient should return to the emergency department if they experience any worsening symptoms. Strict return precautions were discussed with the patient. The patient expressed understanding of these instructions. I answered all questions that the patient had. The patient was discharged home in good condition with their prescriptions and follow up information. Undiagnosed new problem with uncertain prognosis? @ -No Drug Therapy requiring intensive monitoring for toxicity (Heparin, Nitro, Insulin, Cardizem)? @ -No Were any procedures done? @ -No Diagnosis/symptom? @ -Syncope Acute, or Chronic, or Acute on Chronic? @ -Acute Uncomplicated (without systemic symptoms) or Complicated (systemic symptoms)? @ -Uncomplicated Side effects of treatment? @ -None Exacerbation, Progression, or Severe Exacerbation] @ -No Poses a threat to life or bodily function? @ -Unlikely at this time - Lab Data Result diagrams: 01/14/24 17:31 01/14/24 17:31 Lab Results 01/14/24 01/14/24 01/14/24 Range/Units 17:31 17:31 17:31 WBC 8.5 (3.8-10.6) k/uL RBC 4.28 L (4.30-5.90) m/uL Hgb 13.3 (13.0-17.5) gm/dL Hct 40.5 (39.0-53.0) % MCV 94.4 (80.0-100.0) fL MCH 31.1 (25.0-35.0) pg MCHC 33.0 (31.0-37.0) g/dL RDW 13.4 (11.5-15.5) % Plt Count 193 (150-450) k/uL MPV 7.8 Neutrophils % 73 % Lymphocytes % 18 % Monocytes % 6 % Eosinophils % 1 % Basophils % 0 % Neutrophils # 6.2 (1.3-7.7) k/uL Lymphocytes # 1.6 (1.0-4.8) k/uL Monocytes # 0.5 (0-1.0) k/uL Eosinophils # 0.1 (0-0.7) k/uL Basophils # 0.0 (0-0.2) k/uL PT 11.8 (10.0-12.5) sec INR 1.1 (<1.2) APTT 21.9 L (22.0-30.0) sec Sodium 135 L (137-145) mmol/L Potassium 4.0 (3.5-5.1) mmol/L Chloride 103 (98-107) mmol/L Carbon Dioxide 26 (22-30) mmol/L Anion Gap 6 mmol/L BUN 17 (9-20) mg/dL Creatinine 0.95 (0.66-1.25) mg/dL Est GFR (CKD-EPI)AfAm >90 (>60 ml/min/1.73 sqM) Est GFR (CKD-EPI)NonAf 85 (>60 ml/min/1.73 sqM) Glucose 111 H (74-99) mg/dL Plasma Lactic Acid [place]y (0.7-2.0) mmol/L Calcium 8.7 (8.4-10.2) mg/dL Magnesium 1.7 (1.6-2.3) mg/dL Total Bilirubin 0.7 (0.2-1.3) mg/dL AST 29 (17-59) U/L ALT 18 (4-49) U/L Alkaline Phosphatase 82 (38-126) U/L Total Protein 6.3 (6.3-8.2) g/dL Albumin 3.7 (3.5-5.0) g/dL Urine Color Urine Appearance (Clear) Urine pH (5.0-8.0) Ur Specific [place] (1.001-1.035) Urine Protein (Negative) Urine Glucose (UA) (Negative) Urine Ketones (Negative) Urine Blood (Negative) Urine Nitrite (Negative) Urine Bilirubin (Negative) Urine Urobilinogen (<2.0) mg/dL Ur Leukocyte Esterase (Negative) Urine Opiates Screen (NotDetected) Ur Oxycodone Screen (NotDetected) Urine Methadone Screen (NotDetected) Ur Barbiturates Screen (NotDetected) U Tricyclic Antidepress (NotDetected) Ur Phencyclidine Scrn (NotDetected) Ur Amphetamines Screen (NotDetected) U Methamphetamines Scrn (NotDetected) U Benzodiazepines Scrn (NotDetected) Urine Cocaine Screen (NotDetected) U Marijuana (THC) Screen (NotDetected) Serum Alcohol <10 mg/dL Influenza Type A (PCR) (Not Detectd) Influenza Type B (PCR) (Not Detectd) RSV (PCR) (Not Detectd) SARS-CoV-2 (PCR) (Not Detectd) 01/14/24 01/14/24 01/14/24 Range/Units 17:38 17:38 19:25 WBC (3.8-10.6) k/uL RBC (4.30-5.90) m/uL Hgb (13.0-17.5) gm/dL Hct (39.0-53.0) % MCV (80.0-100.0) fL MCH (25.0-35.0) pg MCHC (31.0-37.0) g/dL RDW (11.5-15.5) % Plt Count (150-450) k/uL MPV Neutrophils % % Lymphocytes % % Monocytes % % Eosinophils % % Basophils % % Neutrophils # (1.3-7.7) k/uL Lymphocytes # (1.0-4.8) k/uL Monocytes # (0-1.0) k/uL Eosinophils # (0-0.7) k/uL Basophils # (0-0.2) k/uL PT (10.0-12.5) sec INR (<1.2) APTT (22.0-30.0) sec Sodium (137-145) mmol/L Potassium (3.5-5.1) mmol/L Chloride (98-107) mmol/L Carbon Dioxide (22-30) mmol/L Anion Gap mmol/L BUN (9-20) mg/dL Creatinine (0.66-1.25) mg/dL Est GFR (CKD-EPI)AfAm (>60 ml/min/1.73 sqM) Est GFR (CKD-EPI)NonAf (>60 ml/min/1.73 sqM) Glucose (74-99) mg/dL Plasma Lactic Acid H[place]y 1.4 (0.7-2.0) mmol/L Calcium (8.4-10.2) mg/dL Magnesium (1.6-2.3) mg/dL Total Bilirubin (0.2-1.3) mg/dL AST (17-59) U/L ALT (4-49) U/L Alkaline Phosphatase (38-126) U/L Total Protein (6.3-8.2) g/dL Albumin (3.5-5.0) g/dL Urine Color Colorless Urine Appearance Clear (Clear) Urine pH 6.5 (5.0-8.0) Ur Specific [place] 1.012 (1.001-1.035) Urine Protein Negative (Negative) Urine Glucose (UA) Negative (Negative) Urine Ketones Negative (Negative) Urine Blood Negative (Negative) Urine Nitrite Negative (Negative) Urine Bilirubin Negative (Negative) Urine Urobilinogen <2.0 (<2.0) mg/dL Ur Leukocyte Esterase Negative (Negative) Urine Opiates Screen (NotDetected) Ur Oxycodone Screen (NotDetected) Urine Methadone Screen (NotDetected) Ur Barbiturates Screen (NotDetected) U Tricyclic Antidepress (NotDetected) Ur Phencyclidine Scrn (NotDetected) Ur Amphetamines Screen (NotDetected) U Methamphetamines Scrn (NotDetected) U Benzodiazepines Scrn (NotDetected) Urine Cocaine Screen (NotDetected) U Marijuana (THC) Screen (NotDetected) Serum Alcohol mg/dL Influenza Type A (PCR) Not Detected (Not Detectd) Influenza Type B (PCR) Not Detected (Not Detectd) RSV (PCR) Not Detected (Not Detectd) SARS-CoV-2 (PCR) Not Detected (Not Detectd) 01/14/24 Range/Units 19:25 WBC (3.8-10.6) k/uL RBC (4.30-5.90) m/uL Hgb (13.0-17.5) gm/dL Hct (39.0-53.0) % MCV (80.0-100.0) fL MCH (25.0-35.0) pg MCHC (31.0-37.0) g/dL RDW (11.5-15.5) % Plt Count (150-450) k/uL MPV Neutrophils % % Lymphocytes % % Monocytes % % Eosinophils % % Basophils % % Neutrophils # (1.3-7.7) k/uL Lymphocytes # (1.0-4.8) k/uL Monocytes # (0-1.0) k/uL Eosinophils # (0-0.7) k/uL Basophils # (0-0.2) k/uL PT (10.0-12.5) sec INR (<1.2) APTT (22.0-30.0) sec Sodium (137-145) mmol/L Potassium (3.5-5.1) mmol/L Chloride (98-107) mmol/L Carbon Dioxide (22-30) mmol/L Anion Gap mmol/L BUN (9-20) mg/dL Creatinine (0.66-1.25) mg/dL Est GFR (CKD-EPI)AfAm (>60 ml/min/1.73 sqM) Est GFR (CKD-EPI)NonAf (>60 ml/min/1.73 sqM) Glucose (74-99) mg/dL Plasma Lactic Acid H[place]y (0.7-2.0) mmol/L Calcium (8.4-10.2) mg/dL Magnesium (1.6-2.3) mg/dL Total Bilirubin (0.2-1.3) mg/dL AST (17-59) U/L ALT (4-49) U/L Alkaline Phosphatase (38-126) U/L Total Protein (6.3-8.2) g/dL Albumin (3.5-5.0) g/dL Urine Color Urine Appearance (Clear) Urine pH (5.0-8.0) Ur Specific [place] (1.001-1.035) Urine Protein (Negative) Urine Glucose (UA) (Negative) Urine Ketones (Negative) Urine Blood (Negative) Urine Nitrite (Negative) Urine Bilirubin (Negative) Urine Urobilinogen (<2.0) mg/dL Ur Leukocyte Esterase (Negative) Urine Opiates Screen Not Detected (NotDetected) Ur Oxycodone Screen Not Detected (NotDetected) Urine Methadone Screen Not Detected (NotDetected) Ur Barbiturates Screen Not Detected (NotDetected) U Tricyclic Antidepress Not Detected (NotDetected) Ur Phencyclidine Scrn Not Detected (NotDetected) Ur Amphetamines Screen Not Detected (NotDetected) U Methamphetamines Scrn Not Detected (NotDetected) U Benzodiazepines Scrn Not Detected (NotDetected) Urine Cocaine Screen Not Detected (NotDetected) U Marijuana (THC) Screen Detected H (NotDetected) Serum Alcohol mg/dL Influenza Type A (PCR) (Not Detectd) Influenza Type B (PCR) (Not Detectd) RSV (PCR) (Not Detectd) SARS-CoV-2 (PCR) (Not Detectd) - EKG Data -: EKG Interpreted by Me EKG Comments: 12-lead Electrocardiogram Interpretation Note EKG was reviewed and interpreted by myself. 12-lead ECG performed at 1749 is interpreted by me as revealing right bundle branch block with normal sinus rhythm at a rate of 70 beats per minute. [place] is normal. DE interval is 195 ms, QRS duration is 129 ms, QTc is 434 ms.. There were no ST or T wave abnormalities to suggest myocardial ischemia or injury. R wave progression acr oss the precordium was satisfactory. By my interpretation this EKG is non- diagnostic for acute ischemia. Compared with EKG from February 2019, with no obvious acute dynamic changes. Disposition Clinical Impression: Syncope Disposition: HOME SELF-CARE Condition: Good Instructions (If sedation given, give patient instructions): Syncope (ED) Additional Instructions: Suffered a syncope episode at home of unknown etiology. Workup unremarkable. Vital signs remained stable throughout stay in the ER. Please return to the emergency department if worsening symptoms. Follow-up with your PCP/gang bore operator within the next 1 to 3 days. Is patient prescribed a controlled substance at d/c from ED?: No Referrals: None,Stated [Primary Care Provider] - 1-2 days Forms: Area PCPs Time of Disposition: 20:44
[2024-01-14] MEDS: SODIUM CHLORIDE 0.9% 1,000 ML IV STA ×2 (17:39)
[2024-01-14 17:49] LABS: Basophils % (A) 0 %; Eosinophils # (A) 0.1 k/uL (0-0.7); Eosinophils % (A) 1 %; HCT 40.5 % (39.0-53.0); HGB 13.3 gm/dL (13.0-17.5); Lymphocytes # (A) 1.6 k/uL (1.0-4.8); Lymphocytes % (A) 18 %; MCH 31.1 pg (25.0-35.0); MCV 94.4 fL (80.0-100.0); Mean Platelet Volume 7.8; Monocytes # (A) 0.5 k/uL (0-1.0); Monocytes % (A) 6 %; Neutrophils # (A) 6.2 k/uL (1.3-7.7); Neutrophils % (A) 73 %; Platelet Count 193 k/uL (150-450); RBC 4.28 m/uL (4.30-5.90); RDW 13.4 % (11.5-15.5); WBC 8.5 k/uL (3.8-10.6)
[2024-01-14 18:04] LABS: INR 1.1 (<1.2); Prothrombin Time 11.8 sec (10.0-12.5)
[2024-01-14 18:09] LABS: ALT 18 U/L (4-49); AST 29 U/L (17-59); African American GFR (CKD) >90 (>60 ml/min/1.73 sqM); Albumin 3.7 g/dL (3.5-5.0); Alcohol <10 mg/dL; Alkaline Phosphatase 82 U/L (38-126); Anion Gap 6 mmol/L; Blood Urea Nitrogen 17 mg/dL (9-20); Calcium 8.7 mg/dL (8.4-10.2); Carbon Dioxide 26 mmol/L (22-30); Chloride 103 mmol/L (98-107); Glucose 111 mg/dL (74-99); Magnesium 1.7 mg/dL (1.6-2.3); Non-African American GFR(CKD) 85 (>60 ml/min/1.73 sqM); Sodium 135 mmol/L (137-145); Total Bilirubin 0.7 mg/dL (0.2-1.3); Total Protein 6.3 g/dL (6.3-8.2)
[2024-01-14 18:11] LABS: Partial Thromboplastin Time 21.9 sec (22.0-30.0)
--- NOTE | 2024-01-14 18:26 | CT ---
EXAMINATION TYPE: CT brain wo con DATE OF EXAM: 01/14/2024 6:11 PM COMPARISON: 02/10/2017 CLINICAL INDICATION: Male, 63 years old with history of syncope, syncope TECHNIQUE: CT of the brain is performed utilizing 3 mm thick sections through the posterior fossa and 3 mm thick sections through the remaining calvarium. Study is performed within 24 hours of arrival to the hospital. Contrast used: mL of , (none if empty) CT DLP: 1184.4 mGycm, Automated exposure control for dose reduction was used. FINDINGS: No abnormal hyperdensity is present to suggest an acute intracranial hemorrhage. No mass lesion is evident. No acute infarcts are evident. Ventricles and sulci are appropriate for the patient age. Paranasal sinuses and mastoid air cells within the [id number] are clear. IMPRESSION: 1. No acute intracranial process. Follow up MRI can be performed as clinically indicated. [facility], , 01/14/2024 6:24 PM
--- NOTE | 2024-01-14 18:27 | XR ---
EXAMINATION TYPE: XR chest 2V DATE OF EXAM: 01/14/2024 6:12 PM COMPARISON: 03/19/2019 CLINICAL INDICATION: Male, 63 years old with history of syncope, TECHNIQUE: XR chest 2V view(s) obtained. FINDINGS: The heart size is normal. The pulmonary vasculature is normal. The lungs are clear. There is hyperinflation and flattening the diaphragms compatible with COPD. Brandon rnotomy wires are present. Prior left clavicular fracture repair is evident IMPRESSION: 1. No acute pulmonary process. 2. COPD [facility], , 01/14/2024 6:25 PM
[2024-01-14] MEDS: SODIUM CHLORIDE 0.9% 500 ML 500 ML IV STA (19:05)
[2024-01-14 19:30] VITALS: TEMP 97.9
[2024-01-14 20:24] LABS: Appearance,Urine Clear (Clear); Bilirubin,Urine Negative (Negative); Blood,Urine Negative (Negative); Color,Urine Colorless; Glucose,Urine (UA) Negative (Negative); Ketones,Urine Negative (Negative); Leukocyte Esterase,Urine Negative (Negative); Nitrite,Urine Negative (Negative); PH, Urine 6.5 (5.0-8.0); Protein,Urine Negative (Negative); Specific Gravity,Urine 1.012 (1.001-1.035); Urobilinogen,Urine <2.0 mg/dL (<2.0)
[2024-01-14 20:35] LABS: Amphetamine Screen,Urine Not Detected (NotDetected); Barbiturate Screen,Urine Not Detected (NotDetected); Benzodiazepines Screen,Urine Not Detected (NotDetected); Cocaine Screen,Urine Not Detected (NotDetected); Methadone Screen, Urine Not Detected (NotDetected); Opiate Screen,Urine Not Detected (NotDetected); Oxycodone Screen, Urine Not Detected (NotDetected); Phencyclidine Screen,Urine Not Detected (NotDetected); Tricyclic Antidepressant,Urine Not Detected (NotDetected); Urn Cannabinoid Scrn Detected (NotDetected)
[2024-01-14 20:51] VITALS: BP 100/66; PULSE 70
== END 2024-01-14 20:52 | disposition home or self-care (01) ==
LOC: EC 16:54
DX: R55 Syncope and collapse (principal); F17.200 Nicotine dependence, unspecified, uncomplicated; Z11.52 Encounter for screening for COVID-19
CPT/HCPCS: 36415; 70450; 71046; 80053; 80306; 80320; 81003; 83605; 83735; 85025; 85610; 85730; 87636; 93005; 96360; 96361; 99285